=== PATIENT | female | born 1955 | race Caucasian/White ===

== ENCOUNTER 2022-11-25 12:53 | Outpatient (OUT) | payer MEDICARE, SELFPAY ==
--- NOTE | 2022-11-25 13:00 | VEIN_ITS ---
Patient: TERE RADER Exam Date: 11/25/2022 : 1955 Gender:F Ordering : DR. Joe Riley D.P.M. Admission #: [id number] Family : Order #: [id number] CLICK HERE TO VIEW EXAM RADIOLOGY REPORT PROCEDURE: FACILITY [facility] COMPREHENSIVE [facility]IN [facility] - OFFICE VISIT INITIAL COMPARISON: None. PROGRESS NOTES: [age] year old female who presents with a 3 year history of gradual onset leg aching, heaviness, itching, stinging, swelling, muscle cramping. The patient's left leg symptoms are worse than the right. There has been a progression of symptoms since prolonged episode of nonweightbearing following injury. This increases now with increased activity The patient describes an improvement with rest. The patient denies any signs and symptoms to suggest arterial ischemia. The patient describes a family history varicose veins on internal sign. The patient has drinking and smoking history of : Former smoker. Patient has a past medical history significant for hypertension, left foot deformity, cerebrovascular accident, lower left leg and foot fractures, arthritis. The patient denies a history of deep venous thrombus or pulmonary embolus. See separate history and physical for medication list. No prior treatment for varicose or spider veins. No current use of compression stockings. After review of nurse notes, history and physical exam I discussed at length the pathophysiology of venous hypertension and possible treatments, therapies and strategies available. We discussed at length the importance of elevating the lower extremities above the level of the heart, increased physical activity and compression stocking use. Ultrasound venous reflux study performed today was discussed at length with the patient. The report demonstrates no significant superficial vein dilation or reflux. PHYSICAL EXAM: The right leg demonstrates no varicosities, a few spider veins, no ulceration, mild edema, no skin discoloration. The left leg demonstrates no varicosities, a few spider veins, no ulceration, mild edema, no skin discoloration. Both thighs, legs and feet were symmetrically warm to the touch. Good posterior tibial and dorsalis pedis pulses were present bilaterally. IMPRESSION: 1. No significant venous insufficiency 2. No significant lower extremity varicose veins 3. Mild lower extremity subcutaneous edema 4. No flow significant arterial disease 5. CEAP: C3, EN, AN, PN PLAN: 1. Continued use of compression stockings 2. Elevated legs and increased physical activity symptomatic relief 3. No treatment of superficial veins needed at this time. Nurse notes, history and physical were reviewed and confirmed, see attached forms. The nurse was present throughout the physical exam and consultation Dictated by: Ike Elias M.D. on 11/25/2022 at 14:00 Approved by: Ike Elias M.D. on 11/25/2022 at 14:38
--- NOTE | 2022-11-25 14:00 | VEIN_ITS ---
Patient: TERE RADER Exam Date: 11/25/2022 : 1955 Gender:F Ordering : DR. Joe Riley D.P.M. Admission #: [id number] Family : Order #: [id number] CLICK HERE TO VIEW EXAM RADIOLOGY REPORT PROCEDURE: VC EXT VENOUS REFLUX ARACELY LMTD COMPARISON: None. INDICATIONS: Pain and due to varicose veins of bilateral legs I83.813 TECHNIQUE: Duplex imaging of the lower extremity to assess the deep and superficial venous system for the presence of deep or superficial venous incompetence and to document the location and severity of disease. The study includes evaluation of the great saphenous vein (GSV), anterior accessory saphenous vein (AASV) and small saphenous vein (SSV). Patient scanned in reverse Trendelenburg and standing. FINDINGS: RIGHT LOWER EXTREMITY: Saphenofemoral Junction Reflux: Yes 8.7mm 1.1 sec GSV: Diam (mm) Reflux/ Time (sec) Proximal Thigh 4.9 Yes 0.5 Mid Thigh 3.4 No Distal Thigh 3.0 Yes 0.5 Prox Calf 3.0 No Mid Calf 2.1 Yes 0.5 Saphenopopliteal Junction Reflux: 2.2mm No SSV: Proximal Calf 2.0 No Mid Calf 1.7 AASV: Proximal Thigh 3.9 No Mid Thigh 3.8 Yes 0.9 Distal Thigh Thrombi: No acute or chronic thrombus visualized Compressibility: Normal Flow: Normal Preforator: Dist/med calf 2.4mm with 0s reflux. Mid/med calf 3.8mm with 0s reflux. Tech Note: No significant incompetency or varicose veins present. LEFT LOWER EXTREMITY: Saphenofemoral Junction Reflux: No 8.5 mm sec GSV: Diam (mm) Reflux/Time (sec) Proximal Thigh 4.8 Yes 0.8 Mid Thigh 4.8 Yes 0.7 Distal Thigh 3.5 Yes 0.6 Prox Calf 1.8 No Mid Calf 2.5 No Saphenopopliteal Junction Relux: 2.6 mm Yes 0.7 SSV: Proximal Calf 2.2 No Mid Calf 1.8 Yes 0.5 AASV: Proximal Thigh 4.5 Yes 0.4 Mid Thigh 3.6 Yes 0.3 Distal Thigh Thrombi: No acute or chronic thrombus visualized Compressibility: Normal Flow: Normal Personnel Quality Assurance Auditor: Dist/med calf 2.6mm with 0s reflux. Mid/med calf mid/med calf 3.8mm with 0s reflux. Tech Note: No significant incompetency or varicose veins present. CONCLUSION: 1. Minimal reflux within the right anterior accessory saphenous vein, left great saphenous vein, and left small saphenous vein, but no abnormal vessel dilation. 2. No incompetent shafting worker veins. 3. No dilated or incompetent branch saphenous varicosities. Dictated by: Ike Elias M.D. on 11/25/2022 at 13:57 Approved by: Ike Elias M.D. on 11/25/2022 at 13:59
== END 2022-11-25 12:54 ==
LOC: VC 12:55
PROVIDERS: PCP Podiatrist Foot & Ankle Surgery; Visit Provider Podiatrist Foot & Ankle Surgery
DX: I83.813 Varicose veins of bilateral lower extremities with pain (principal)
CPT/HCPCS: 93970; G0463

== ENCOUNTER 2023-08-11 13:39 | Outpatient (OUT) | payer MEDICARE, SELFPAY ==
--- NOTE | 2023-08-11 | XR_ITS ---
The [address] [address] Patient Name: TERE RADER MRN: [id number] date: 1955 Sex: F Assigned Patient Location: [facility] Current Patient Location: Accession/Order Number: [id number] Exam Date: 08/11/2023 13:50 Report Date: 08/12/2023 07:37 At the request of: REEMA CH Procedure: XR ankle LT min 3V PROCEDURE: XR foot LT min 3V, XR ankle LT min 3V HISTORY: LEFT FOOT PAIN COMPARISON: XR ankle left 10/29/2022 FINDINGS: BONES:Prior mechanical fusion of the ankle joint and hindfoot via intramedullary mason and locking screws. Stable lucency along margins of the mason and calcaneal screw secondary to surgical placement versus movement. Prior resection of distal fibula. Cortical irregularity along the mid and distal tibia secondary to prior trauma, surgical changes, and bone healing. Moderate marked degenerative changes of the midfoot. Generalized osteopenia of the foot. SOFT TISSUES:No visible soft tissue swelling. EFFUSION:None visible. OTHER: Negative. XR/XR ankle LT min 3V IMPRESSION: 1. Grossly stable surgical changes chronic degenerative changes. Electronically authenticated by: PATSY ABEL Date: 08/12/2023 07:37
--- NOTE | 2023-08-11 | XR_ITS ---
The [address] [address] Patient Name: TERE RADER MRN: [id number] date: 1955 Sex: F Assigned Patient Location: [facility] Current Patient Location: Accession/Order Number: [id number] Exam Date: 08/11/2023 13:50 Report Date: 08/12/2023 07:37 At the request of: REEMA CH Procedure: XR foot LT min 3V PROCEDURE: XR foot LT min 3V, XR ankle LT min 3V HISTORY: LEFT FOOT PAIN COMPARISON: XR ankle left 10/29/2022 FINDINGS: BONES:Prior mechanical fusion of the ankle joint and hindfoot via intramedullary mason and locking screws. Stable lucency along margins of the mason and calcaneal screw secondary to surgical placement versus movement. Prior resection of distal fibula. Cortical irregularity along the mid and distal tibia secondary to prior trauma, surgical changes, and bone healing. Moderate marked degenerative changes of the midfoot. Generalized osteopenia of the foot. SOFT TISSUES:No visible soft tissue swelling. EFFUSION:None visible. OTHER: Negative. XR/XR foot LT min 3V IMPRESSION: 1. Grossly stable surgical changes chronic degenerative changes. Electronically authenticated by: PATSY ABEL Date: 08/12/2023 07:37
== END 2023-08-11 13:40 | disposition home or self-care (01) ==
PROVIDERS: Visit Provider Podiatrist Foot & Ankle Surgery
DX: M24.575 Contracture, left foot (principal); M21.172 Varus deformity, not elsewhere classified, left ankle; Z98.890 Other specified postprocedural states
CPT/HCPCS: 73610; 73630

== ENCOUNTER 2024-02-09 08:40 | Outpatient (OUT) | payer MEDICARE, SELFPAY ==
--- NOTE | 2024-02-09 | XR_ITS ---
The [address] [address] Patient Name: TERE RADER MRN: [id number] date: 1955 Sex: F Assigned Patient Location: Current Patient Location: Accession/Order Number: [id number] Exam Date: 02/09/2024 09:50 Report Date: 02/10/2024 09:20 At the request of: REEMA CH Procedure: XR ankle LT min 3V PROCEDURE: XR ankle LT min 3V HISTORY: LEFT ANKLE PAIN COMPARISON: None. FINDINGS: BONES:Mechanical fusion of ankle joint and hindfoot via intramedullary mason and locking screws; no appreciable hardware fracture loosening. Remote fracture and healing of distal tibia. Resection of lateral malleolus. Marked degenerative changes of the hindfoot and ankle joint. SOFT TISSUES:No visible soft tissue swelling. EFFUSION:None visible. OTHER: Negative. XR/XR ankle LT min 3V IMPRESSION: 1. Mechanical fusion of ankle joint and hindfoot without evidence of hardware failure. Electronically authenticated by: PATSY ABEL Date: 02/10/2024 09:20
--- OUTSIDE RECORDS SUMMARY | 2024-02-10 10:08 | XMS_ITS | CCD ---
Author Organization [facility] Care Team Providers Care Saw Edge Fuser Circular Name Role Phone REEMA CH Admitting Unavailable REEMA CH Attending Unavailable REEMA CH Attending Unavailable REEMA CH Consulting Unavailable REEMA CH Admitting Unavailable NOHEMY MIXON Consulting Unavailable [place] PROPELLER INSPECTOR-INFORMATION STRATEGIST, Felicia Atkins Attending Anu Zee MD, Ben Parham Attending Unavai lable [place] PROPELLER INSPECTOR-INFORMATION STRATEGIST, Felicia Atkins Attending U navailable [place] PROPELLER INSPECTOR-INFORMATION STRATEGIST, Felicia Atkins Attending Anu Zee MD, Ben Parham Attending Unavai lable [place] PROPELLER INSPECTOR-INFORMATION STRATEGIST, Felicia Atkins Attending Anu Zee MD, Ben Parham Attending Unavai lable [place] PROPELLER INSPECTOR-INFORMATION STRATEGIST, Felicia Atkins Attending U navailable [place] PROPELLER INSPECTOR-INFORMATION STRATEGIST, Felicia Atkins Attending U conorailFelicia Huggins Admitting Unavailable Dale Flores Primary Care Unavailable GreenbraeFelicia pastor Attending Unavailable Dale Flores Primary Care Unavailable Risa Hilton Attending Unavailable Risa Hilton Admitting Unavailable Dale Flores Primary Care Unavailable Dale Flores Admitting Unavailable Dale Flores Attending Unavailable Dale Flores Attending Unavailable Dale Flores Admitting Unavailable Dale Flores Primary Care Unavailable [place]braeFelicia pastor Admitting Unavailable Dale Flores Primary Care Unavailable GreenbraeFelicia pastor Attending Unavailable BEN ZEE Attending Unavailable BEN ZEE Admitting Unavailable Dale Flores Primary Care Unavailable Dale Flores Primary Care Unavailable Dale Flores Attending Unavailable Dale Flores Admitting Unavailable aDle Flores Primary Care Unavailable Dale Flores Attending Unavailable Dale Flores Admitting Unavailable GreenbraeFelicia pastor Admitting Unavailable Dale Flores Primary Care Unavailable [place], Felicia M Attending Unavailable [place], Felicia M Admitting Unavailable Mark, Darwin Primary Care Unavailable [place], Felicia M Attending Unavailable [place], Felicia M Admitting Unavailable Mark, Darwin Primary Care Unavailable [place], Felicia M Attending Unavailable [place], Felicia M Admitting Unavailable Mark, Darwin Primary Care Unavailable [place], Felicia M Attending Unavailable [place], Felicia M Admitting Unavailable Mark, Darwin Primary Care Unavailable [place], Felicia M Attending Unavailable [place], Felicia M Admitting Unavailable Mark, Darwin Primary Care Unavailable [place], Felicia M Attending Unavailable KINDL, BEN F Attending Unavailable KINDL, BEN F Admitting Unavailable Mark, Darwin Primary Care Unavailable KINDL, BEN F Admitting Unavailable Mark, Darwin Primary Care Unavailable KINDL, BEN F Attending Unavailable KINDL, BEN F Attending Unavailable KINDL, BEN F Admitting Unavailable Mark, Darwin Primary Care Unavailable [place], Felicia M Attending Unavailable [place], Felicia M Admitting Unavailable Mark, Darwin Primary Care Unavailable [place], Felicia M Admitting Unavailable Mark, Darwin Primary Care Unavailable [place], Felicia M Attending Unavailable Mark, Darwin Primary Care Unavailable Mark, Darwin Attending Unavailable Mark, Darwin Admitting Unavailable Mark, Darwin Primary Care Unavailable Mark, Darwin Attending Unavailable Mark, Darwin Primary Care Unavailable [place], Felicia M Admitting Unavailable [place], Felicia M Attending Unavailable Mark, Darwin Primary Care Unavailable Mark, Darwin Attending Unavailable Mark, Darwin Primary Care Unavailable Mark, Darwin Attending Unavailable Mark, Darwin Primary Care Unavailable Mark, Darwin Attending Unavailable Mark, Darwin Primary Care Unavailable Mark, Darwin Attending Unavailable Problems Problem Classification Problem Date Documented Da te Episodic/Chronic Other non-traumatic joint disorders (4 sources) Pain in left ankle and joints of left foot; Translations: [PAIN IN LEFT ANKLE] Onset: 10-29-2022 Episodic Results Test Name Value Interpretation Reference Range Facility Inpatient Patient Summaryon 02-03-2024 Inpatient Patient Summary [address] [address] Patient Discharge Instructions Name: TERE RADER : 1955 Patient Address: [address] [facility] [address] Primary Care Provider: Name: Dale Flores MD After you are discharged if you find you have any questions, please, call [phone] ext [phone] to speak to a nurse. Discharge Diagnosis: Prescription Information: If you have been given a prescription for narcotics, seek immediate medical attention if you have any difficulty breathing or any sudden status changes such as confusion and sleepiness. If you or anyone you know is experiencing suicidal thoughts, mental health, alcohol and/or drug addiction problems; contact the [facility] 12/01 Crisis Hotline -Text 4HOPE to [phone]. If you received any narcotics, sedation, or any other medication that causes drowsiness for the next 24 hours, unless otherwise directed: ? Do not drive a car. ? Do not operate machinery such as power tools, lawn mowers, drills, sewing machines, or stoves ? Avoid alcoholic beverages and drugs for allergies, nerves, or sleep ? Do not make important personal or business decisions or sign any legal documents [facility] would like to thank you for allowing us to assist you with your healthcare needs. The following includes patient education materials and information regarding your injury/illness. TERE RADER has been given the following list of follow-up instructions, prescriptions, and patient education materials: Follow-up Instructions Medications During the course of your visit, your medication list was updated with the most current information. The details of those changes are reflected below: Medications to Continue That Have Not Changed Other Medications acetaminophen (acetaminophen 650 mg oral tablet, extended release) 1 tab(s) Oral (given by mouth) every day as needed Pain - Moderate. buPROPion (buPROPion 150 mg/12 hours (SR) oral tablet, extended release) 1 tab(s) Oral (given by mouth) 2 times per day. Refills: 3. camphor/menthol/methy l salicylate topical (Salonpas (camphor) topical film) diclofenac topical (Voltaren Gel 1%) docusate (docusate sodium 100 mg oral capsule) 1 cap(s) Oral (given by mouth) 2 times per day as needed if needed for constipation. Refills: 5. ibuprofen (ibuprofen 800 mg oral tablet) 1 tab(s) Oral (given by mouth) every 8 hours. for 30 Days. Refills: 1. losartan (losartan 50 mg oral tablet) take 1 tablet by mouth once daily. Refills: 0. menthol topical (Biofreeze) mirabegron (Myrbetriq 50 mg oral tablet, extended release) 1 tab(s) Oral (given by mouth) every day. pravastatin (pravastatin 40 mg oral tablet) take 1 tablet by mouth at bedtime. Refills: 3. Template Non-Formulary (Golo with meals) 1 tab(s) Oral (given by mouth) 3 times per day. traMADol (traMADol 50 mg oral tablet) 1 tab(s) Oral (given by mouth) every 4 hours. as needed as needed for pain. Refills: 0. venlafaxine (venlafaxine 150 mg oral capsule, extended release) 1 cap(s) Oral (given by mouth) 2 times per day. Refills: 3. It is important to always keep an active list of medications available so that you can share with other providers and manage your medications appropriately. As an additional courtesy, we are also providing you with your final active medications list that you can keep with you. acetaminophen (acetaminophen 650 mg oral tablet, extended release) 1 tab(s) Oral (given by mouth) every day as needed Pain - Moderate. buPROPion (buPROPion 150 mg/12 hours (SR) oral tablet, extended release) 1 tab(s) Oral (given by mouth) 2 times per day. Refills: 3. camphor/menthol/methy l salicylate topical (Salonpas (camphor) topical film) diclofenac topical (Voltaren Gel 1%) docusate (docusate sodium 100 mg oral capsule) 1 cap(s) Oral (given by mouth) 2 times per day as needed if needed for constipation. Refills: 5. ibuprofen (ibuprofen 800 mg oral tablet) 1 tab(s) Oral (given by mouth) every 8 hours. for 30 Days. Refills: 1. losartan (losartan 50 mg oral tablet) take 1 tablet by mouth once daily. Refills: 0. menthol topical (Biofreeze) mirabegron (Myrbetriq 50 mg oral tablet, extended release) 1 tab(s) Oral (given by mouth) every day. pravastatin (pravastatin 40 mg oral tablet) take 1 tablet by mouth at bedtime. Refills: 3. Template Non-Formulary (Golo with meals) 1 tab(s) Oral (given by mouth) 3 times per day. traMADol (traMADol 50 mg oral tablet) 1 tab(s) Oral (given by mouth) every 4 hours. as needed as needed for pain. Refills: 0., OARRS reviewed on 10/03/2022 venlafaxine (venlafaxine 150 mg oral capsule, extended release) 1 cap(s) Oral (given by mouth) 2 times per day. Refills: 3. Take only the medications listed above. Contact your doctor prior to taking any medications not on this list. Diet & Activity Patient (more content not included)... [facility] 02-03-2024 Patient Handout [facility] Coding Summaryon 02-01-2024 Coding Summary HTMLBase 64 VfduomkqDZt1tOz+PGhlY WQ+TR4GWIHsH15ykQOfwY 1wZ5DJDFxLJkckZIGYXYr AKmKviwPzRS3rlMQdBETm IC8+MT3mDBIkLeveoXYsi 9T3dOR6R60sql2gAZgnjK N6PKCzRwHjfefce7vhbTl 6IDcuNmluOyBt UNMooC24RDA9zV75Hp86u BDkbBKwn1vtbPe4ArGaMS LjVUQ1pBxkIOvav7IiQDR iF64osDZws8R1 GEYdkXxxgKPiTgFxiUU4m Q3vSEacgqvhi7lrtludYg v7py84iWZox9W3hUE6O6Q helC9FIVfiJDr QushlCUEbB9tljapx9rwc ktvVwRnEITlYDg4LYk3HE ZkwJhgCvLtQY40JOD4SNG cekEuY2MxALYx iFrsImZ7k2Z6Sa0WC7PAQ ijxS9VTSQTKHJaevKX+PC 27kf14T7AiFkrfHcf5CRH iTHV1bBC0gY9r WOEsDZbxq0S1iNM4S2Sxi eThjn4mr8vsXMJxPWgpZ8 6noPPfk3F0TMNlgMI2ZNU xxXbiDmQajO22 Oyc+CLYilDjmf8QeGiwxb 2jgb9wljOo1VxtfHVEarx CaqNucMGG3r0AnJq4sRYK dkVB9tVD2aZ4s ZpMgSzB9HHczH835HmZcg ZQoFiciJ13vR9OkkAG+PH JnAks6KBOfhZfjDQ2jB1C hZGRpbmctbGVm lHoyLI8bQPKqshmcQCOsm G4eXJViU8i2VgWlVaU4BH hvX2SmBQXjlndoNs36jP8 iUxBcPeZ8KZmq L4UqrjW8HVZmhMAmJVeeK SK4Q32yf6J3OBUhRJBhYX B4oNW5vT8syTkurtyslOE mdDsgdmVydGlj TCbrBWwzE451STUvlDshX kNvZGluZyBEYXRlOiAgMD gvMTIvMjAyNDwvdGQ+PHR uQPE6wHsbEZCm lGEyCVwvZm0hcQadqKniL N5wXLQuwtauSUPtzV4nPP OnqAAlqEueTE2sKFJgfps eh420DiVrACJ0 ODKbvELdO6MmqX5uEkLcM PTbFWXvC8QsqUQaZHqrE9 40BCvpNpC5TTAigkFwW6J sLWFsaWduOiB0 f2A4Hq4Rr7ZbrznsS4Sjt LZlDrDxGuxnECh6O9PiFa wvdHI+PE11MGYsBI27OWt 2ESU0bAynAJoc MAGuQ5TtmL0yAlDtFEPlA GRkOyc+PHRhYmxlIHdpZH RoPScxMDAlJyBzdHlsZT0 zGo8fFQWfJZNa tHdaeQPnQpPue8ccXCOqK IlmUB4anKerD4AddAD9MZ Dlz2h6Lg63Z80wG0YjsTQ +ZJGsaNY8hWC6 zS5uXzSbIoW2OIwhL802P tMiwNUwCsoai7iyz1mlrO a9ZwW9TLClohOkaOdjCHU 7f2ScTz47Z99w IHdpZHRoPSIxNSUiIHZhb Qjuxz0zoH6jLt0+PGNvbC S4eSF0mP8rSaPtCdG1UMk uN773BcTacPYp Grllg4bqt8aywWz8PuWiS RXmtwQsrDicLTZ1o6KxUj 88E7LejCjrj0DcHto2qq9 5kMLxe9M2aTE9 G3VyMBJxcbpknFXhbGsaA M2yUGEvtzqfJIIugQ9mUG KbZ9g3BhXcOoB6IRopL3A inyM3DYPvgABx QUAkjQEBvJ2cupsck2ift wkjWxZjBLOuMKc5VJl7DZ AmpDpzUgVqOIB8RmE2SPP 2dUHptP8hzLun tffhvE2wIfp+FQB1qKLye XOIQW0zBlfjzLE+PHRkIH S2tVflWZutTRLugB3oNNB gS7m3NdIgFmX3 PGrvB5MsezI8MQAtvNPjJ BGveEYJkD6arptst1kbeh cvWkItTPAwOYp4VCr4ELD saWduOiBsZWZ0 OvZ4NVV2gLJnpK9ocQgeo wgywS0lRwp+QmlydGggRG R5IWn7T7DoFem8KEMlzZy lIG1kuVYnVZjz Nz1avSkcpQohBA5uNXCct ouwa745PjNbt8xrYZOuoO AuUKfxZXB2X07pw8W8RGW xNYFfDLQ4aXD7 eN6toKnvpuwzjEJuvXntq vQipGrjWKaiQRfsS853GC GzhHcfUyZtVSp7X1EhVan 1MJFjjGxnIB9d pCLwVMlvEs0qhZjccJwuP E6nOKFljzzgo930MfZly6 hnDOSfeZPqIHtmCPZ0Z41 cc8A6UARrFAAj RQX2hGI6kE5ubIfbeujjh GVmdDsgdmVydGljYWwtYW qgX226YVRrgHubVtYhiEp 9A5VrGka2AQKz pZpvAG6voBDhIUylAs4ny NkcmOzuGS9gTPObjvnwh2 10ChWai0sqQEJczYYxEOc eDQB9Y64bx9N2 QKCwOGHqCPT4rLE5uV0yh GlnbjogbGVmdDsgdmVydG mqHQukECwrW500NLPiuUm nPlBhdGllbnQg QJrzBTp2T2BtHqskjDQ+P R50FSXbTU62hRJjdHMya3 vogBf3RqYfFGCzIIU4gSa dNIkgh9JwBFYl O53djYBzy6C6PJHvrLykx XElKvWyhTS3bJ0nQMfkbd hhb0iabveeCwsqj7hhei6 6zP27X72lWUwa ZHRoPSIzMCUiIHZhbGlnb u9icY3wSc7+VLHujAW7iW T4vG7kZOJsYxA3GAamG33 9InRvcCIvPjxj m4grg2lgeDk0ZvW5FOJsr oFzyQdcMNY1u7RnBb25W0 9sIHdpZHRoPSIyMCUiIHZ vgUvgin6ogA3e Ii8+ASQuwCU8bDF2iA7hH wXyQrH3SKchW678TgPebV EoPnmnN89zL3TvqVQ+PHR rOwg4AHInfNtz FN5thEGaIJbdXk2rQFY7J eYmIwMoBLjfW0BgYZKspp hkqmdhfPH7IKLgDZPlbH9 0Be8giCtmUHSt gUDKrR4uqnmjq3bneqydA wOzJCTmAMf8ADw3FQYiqP fgKqMfRUS7CsQ3OVV2uQB vuR0bsBazzlrp rF0sE0IbRZFcjgufWt87h P8cAwEhYcQ6MWonUxs+V0 8VXaFfYKdXPYvCGI3oSNw VGmXLAMEHPE46 RT38zCGyh0V6bDC2H3EiI OEdgjndwbjbfKC7AVZpVF TxqF84fKVoKVnpHh1dq2J 4a225GXMzFLFc jW12Vm0zbLocBPBwpOZEa V5jncycu1nwxdfzDqJwVT HzNHt8JRv1TYBcdLfiBwP ePLU2HeO3KOX0 nKBubA7bbYvjhtredH5bV yc+EMSmPOUdBZv6GWqauM Q+UMBbGDK6rEjnSDgmWMK umN4pUHZeP0l4 EgGaUiX2WUfkF9IzPNIpg qspVv39bV8gFzWeMuG2ZG dsM3ZlniB7RLYuwLVqWPh hKNO2C01cq5F0 IGJrLIUxBAE0gJL8dG3lj GlnbjogbGVmdDsgdmVydG moHAipZNgrG601ECHswBu tErP4UAniQHGe CF57YK91mAAoy5D8fTM3Z 6FlZQIsirkfpptifCE1JN YcFOOsnA05wIKcZLykQx5 hf3T8i405SFPm RBUqhU55Yj2wzFsnHEBwp AQVnT3ueuvyy1rxyawmDo BiRRHaVWr1DNa6HWPhkUc zFxIcDTD7UdR6 XWY7mJSboH8dvGwmawgeq G9wOyc+BtOZLRzYMG29KQ 66jNRmt8P8kUA0U5HrAZS pbmctcmlnaHQ6 YUMeUULuiS11qUVnJSvxA t2xq0Y4s599HZPzUBUdvL 24Be0isAghPJBeyIREhC6 lhwpja2oupwwr AtYpSVUoKGn8AOf9TZDmj KgwAvZfDKD6LzO9ZNY2kW WsvQ1swQnvauftwH7eGwr +G3M3S7PwOkon dHI+IE98THMaXV05cNIcf SAzo0dmaKl9CnVfAHRzTX O8fQsySQosa6OeWBSiL69 vfJMmd0T7VYGe kGhkcVDyIsEqyRC6eM7hK Nvwotfje6ownozoTnrao3 zjgp81qP20X19uOHsrKZE oPSIzMCUiIHZh yUcmqk8wbG2bYp8+PGNvb BL5sBJ5vH1uKwPoEcJ0VR cyD019XbCjtOUrLioxf8z hk1ruqHm8SjJt YOUndoLhvRseXGI3l9PdY j76Z65pUZbePKTuGANaJG ThLGPmxNjibq4vaI1eXc9 +UG0pb9qpgm39 oW45hZT+AGRmBYX1wIahK BxlHBEgtY1vYGukJhQ7XG IdLrCsvP14qDYlUUyvKq2 eqMdnjMhsCH0j AIRpcnldy637HzUzk2daJ RGnxPAuZJruLUG7E00yh0 P7GRYnIJTeVFS9mUK1tY3 hbGlnbjogbGVm dDsgdmVydGljYWwtYWxpZ 001GQOdjNwiNfQswWOpJ6 xywwZXER4gJgrlyLH+PHR nBQC5cMtyYRis HNBskM8aHWKaZ9d1QhOqR dX0ZGtlO3TqkdA4HGMgzI KtSKPqhPGSxU3oqavra2i vcjogIzAwMDAw IEg3LEl8SYEpvXgfZmNaA LC9HgA5ILP5dOWizJ2ufK dwfcgqsR4sDoy+RklOOjw vdGQ+PHRkIHN0 eGkbFJgaZSMkpY8fYQTqH 6l5ZtZxJfV3YRgvM8Jysg X7ZRNwrFNfVIAjfDINoI6 pspgxr8fxbord PgMiMPHvDJv2GWw7SVOjh OlhGvSoUEZ6UeO5BQG0wN NwlK4ueJqryfyyyM2fArl +TVJOOjwvdGQ+ LDFyOIL2bZytGTnqRCSqv V0lYJUhC4n8IfHsIjC5YZ jrF7YhxcY4GMPrgEUrSCL hbUMGvW8fceal r4dgnvyaWrUsKXIvBLs5I Qi0HRGarXqqKqHeBBV6Ow D7ICY1hINlnV8yjQgeefe oeG7gBky+UGF5 SCK1YB58ON53O2FlSixnp GFibGU+PHRhYmxlIHdpZH RoPScxMDAlJyBzdHlsZT0 dNa1nSWBpKRCg bGx (more content not included)... [facility] Coding Summaryon 01-18-2024 Coding Summary HTMLBase 64 JibruokwQGq7uAc+PGhlY WQ+VH3QJSOwZ91vfRCekJ 0zB6KZDMcNCvkpIWBPYWm SYzSmrdVfVC0dbJSyADFj IC8+NE8eENJdLprnxQLkz 5A9aEL8T26yrs4lDDzmqX E1LUHwQvIeltowe5aaeBk 6IDcuNmluOyBt FQHhdI04JDW0vH56Yp92o GOmpMOyf4sxbHh9YkMzDT JxYVS8uItuIWiid6GsVXF qC94mfEXpl0P6 OABwtMqhxBGdGrTkjNF8k F3fYAyjwtdzr3ywnjmfNh w0in45wDVny3D0aJS5P5G jxnT2TBAjpMFf AbupnOSDvY0ogjstx9bfy qntByCwMLNvUDp1DYo9UT YofIuyRbViDI82FUZ6IKS lbuFmH7GjMUQm lPwxItH3g2S1Gl8DN1YOT jzwE1XMNYIEUXjbsRT+PC 24pz01B8TfUdlnSzx5VPK xXJT8aGL2iM3c KYHiNKaji1U5tVX6A9Esw lCbcs7yr3htHQXdKWbjF6 3wxMNra1V1ICVqcDQ8BWI xnIdmHpNgsJ88 Oyc+QLAssQmjo1KlFcocs 6cll0qigAe5UrwxUJKfpy OikMhsJSR2m9SkBt8hZAA deSF1gEA0qA0k IbJsCuF6GIxhS422SvIdg HXgQwkzC95nL8AxvHG+PH DgSps8YFJmtDquJM1zW8E hZGRpbmctbGVm nDotOA4cVOBvpyhbNLGpy R6eICHlZ7i7KuGaPoZ5YR hnK6GsFCHlefzmCa80sL5 rUxJdJcR3UZse B8IudwY7SJEwdHHwWFgoP LZ5Z85er8O0QIKiLLSkDV R9lZB1kR2scJkjbymtuPD mdDsgdmVydGlj DBcuXYadE697CASctLalL kNvZGluZyBEYXRlOiAgMD cvMjkvMjAyNDwvdGQ+PHR kTWQ8wHgsYVDx aRXzIFjxEm2tnWxihFwiD E7qBZXkvsbnYXMznP1uEI OhxXIqrMcdZN3jPRBzpxl hk959DtVpXFO1 ZYOyrYZaN8VvjG1wSdOlP FGkTQBiZ4FysIAjSDakF4 99OWxqSyM9TBMuxcVvF4L sLWFsaWduOiB0 y6L9Yt8Ws8MpijaxS6Ugb HBxQvWgMntiVBd8K0RbPb wvdHI+NJ03UWKkMA92XMd 1KYP1zNujDIwm TOAvF0RzcI9bMvIuRINtI GRkOyc+PHRhYmxlIHdpZH RoPScxMDAlJyBzdHlsZT0 xJi5lQIJtKACi mVfwdRSsNnPwu4aaUGCbY JteCG7vbYllX5NnwUX1YP Cta1s4Rh23O20jK1FcnMR +HCThjJX1yJY8 bM3lJfPuNuM5VBywJ655C uEbeDByNbgcs7hdt8vrtF r3PxM0WITczrQwiWihYPI 9k9JwFh38W91a IHdpZHRoPSIxNSUiIHZhb Mpzlk8diG2zOq6+PGNvbC R6mNI4lN3dSuToXuM3ZTt eA363XfKhlENd Zzczf9yen2hjbBx8SbKwS XOflnZqcJtgLJO7l2JiSt 83W8KjkFaed3YhVnw7gr0 2qVVqp7B0zKJ7 I6GnHBIvjvwrpINiiOvcT V2vKPTczvvfEHAymQ1iNJ NaT7s3GhArSkY8QIwuX8M cadI8HFLrmGCl AEHyrNDXzR1cswxkw7olr gsgLlQpXEGbDQm9XVi0FJ CcqHvpReBkAQJ5XcE6LMV 7tFNjyC7teYsh jjadzC9aWsg+VVW9eYVrh LMSFH0cKfnrdQK+PHRkIH Y3oVfrKKjiPDRkbN6fZLM gZ8b8HdIdIhT9 KFabV0GtbnE6JZPeqBLaP IXxuPBCpZ3xgvtgk3hkso srGlYjXOAsWAb6VMl5SVX saWduOiBsZWZ0 ZoQ8MMQ7vHHkoS1qeKfqo fdemR0aQfx+QmlydGggRG G8JJz8F7RrIhd9LXMkfEd hFG9qyTLrMFty Sj5ooAkinNxlZV3eYIMge cqwj309WsUut9mlZWIwvE HdZBwyECU3Q57dj9C1TSM eQGQzRLG5sXH8 dZ8vgRzlryirvMBpjHcpt dJkbQqsWXnvGMnrI683WS IvlJjbRcHhWHg0I4LlMed 6BERvyMcrIQ6q lXZlCTvmHc8wdNkawDucJ P5iDXCybgmnh374CiFtc0 leKGJmaGEmRKcgFIN0A28 ph9H4IYWgAVFu HUB5qYS2vF6sxStapmyvl GVmdDsgdmVydGljYWwtYW fkR066AQKqsMkiTfUqbWx 0V6YsRyh7LUNe gOtaYD9edNRlCRyhMp7ru WtwqDktEP2uXMXdlbkxv5 69LuExr8nzQPNaxZLmQRw tEPM3R63un3T5 RTHeSRNfFBJ5sNR0sZ8uq GlnbjogbGVmdDsgdmVydG tuJYtbBTadW259JLAtfWr nPlBhdGllbnQg HRkvDOu2T7UoKlsvuLO+P V38FROgZL31kDDchBQea6 gyoNy0XkRfWACuXFJ4nIu yQZrkc3RsTBVr X59dxWAxu4Y4IRShoIgmc TFcPsAvpZH7zM9lYEksmd yjy7rzimiwDrfmv9rmwo1 1rP19T99fLIdr ZHRoPSIzMCUiIHZhbGlnb u8agA7kNw0+EJZzgVU3zW O2jK4tIJFyYdV1NRwrY56 9InRvcCIvPjxj j0qxn4tpjLp9AzQ0BJZyv uJglJacNUR0a0CqQy74B5 9sIHdpZHRoPSIyMCUiIHZ enMxvfj3bjS5c Ii8+YVXimSF4dAC6cY9vP tDjMeD9SZqyP173NmVlhI TuWavsF54gX1GorQS+PHR uRte2GGVvfTfq OF0gyUApMJqhQj2vBUB6E nCmJuQzAAwsT6QjMKSfaw hmffiwmFH2MEYkBUKdgS9 3Ai0gnXlzIMJw dTJRyD9gzuqaq6snewzvU uBaRLZvVVi1IYe4ZWGqhT wiFwWyISL7UfP0MBA2wFR edA5skOktziej eE9wW1TjNMKfafwkHp59o H9bMaEdXhW9WFkvIzs+V0 5QQdAgOQkWDLlNTP5fWAt JDfMLYMJGXU24 TA89cCLev2Q1iQT8Y0LzH OLnbjzkdnewnIK7COCkHD GevQ24sLKnEKuwIr9tm3O 9z645TXIhYYEp gL11Rb6jzEumOHNxbIQZb W9ykikcf6pabtccZlKkNS EmHIj3ISo5JJBtvIycGtH oTWQ0IxB9KQE5 jRSptW7sqMcxvankxW4wJ yc+LPAcDUNgJFp8SVhktR Q+JHXaDVN8kWagHBqiVYB piZ6wIKCgX6s4 VoHjQsV4HNfpS5VtUDXsr emfCs14aR2hXjYpNbU9OW dqM6RrksN2DJDslRTqPCm xCDZ6C70bi5L6 GZLdXWPySUI8bLD0wA3nu GlnbjogbGVmdDsgdmVydG vfQVjzWLxfV858LPRvqPp hJuZ2XWmsNYZf MH38PQ03gFCky0Q0yTN1F 8TpJBWuofclrrkytZV5IH VyKBPsxO67dUIhZXqaAg5 lu3T9o611FDUg BNLgpO10St1kyVrdAQHfn MTOoL3rjxstb1qysfwaZf ExWXDwZWk4VWz8UVPawHw iWpSoJMB1IdW2 WAQ4lMSbfU0xvBvptxneg G9wOyc+QbDMMKrBNK02QA 78lQTgb2Z7hVU6O6AfDTI pbmctcmlnaHQ6 UVWgAGHloA06sOPyBYdfD o4wx6H7q524GVAwVCXcdA 06Ks2mqIevSOTnuBGVtX0 wdhhkk9fgbtar CtGvRJXhAWa4FXu6FQRbu VogAdLyUTS9KwP4FZV2pD TtaR1tsTpsbptjhL7eNtg +S3L8C1EkZwnp dHI+KE69GAVgKK68tESzn PBds2tqrSc2HeYrYVLoSP T7uJygQKxmh7QhDBZpO31 bsMVwp3S4LLDh uHhddSQbXiNpgNE4eX7fA Getjjyxu6kdwyndEbsaa0 pcfa41rQ85Q29uVYdyFEI oPSIzMCUiIHZh lJgkyv5wwO8nXi1+PGNvb AQ9gTE5zA4mIfFqYeF8QT wsN848FmEyvDSfBkpgu7m bx2akiYe7HpYo BBAxgsZgfHxkPOH4f4IxC a11Z93mFVzpMRNnDZWxFF EgKWZafYcydz4dnS6aMg2 +BF8zl0moao74 lM77qFO+ZUJxDGY3pYlgM HeaASJxtB6tUIbfLvW1OS BgTfIloC74sBCfPFvaPm9 qfAtauOocMN7n JOWeyawxm009EwUaz4puJ BWffYToIQlgAYC9R20hp8 X5MXBtYLQjSQD4lBM4bW0 hbGlnbjogbGVm dDsgdmVydGljYWwtYWxpZ 049CAWutEgmAgNhtWKjJ4 ebjxPVMC1cVdzmjJK+PHR fCHP5bWufHArf OTHmnA2cRGQrU1m5RlQwB fY5QTlaS3HgzpA7QKVzkT WaCMZptKYPbF9hjsrbx6j vcjogIzAwMDAw BHm5VSs5FZFidGrqXqZkC SM6JgS1KAM2cWEhrA3opA geczydmY6dVce+RklOOjw vdGQ+PHRkIHN0 vFrqVZjnKMKswQ4uXKSnU 9k7BxNoRiZ5SHvcD7Xocr K7GNYlxEKrMHMlhSGLaN6 pbllut8ytbdap ZsPjRFYsMEc7DLp9QEJom MjySsRfCSR9JiG6SVK5pS BmeJ0idQddwqfraK1yPqv +TVJOOjwvdGQ+ YTFxUTD6iGchZQrpWAJai V2kJIPfZ7v8DtReGvJ5HD xnE7BrawJ9AFLwkUGoGFO deOGNeG0nkvgq v1etcazsZaGmYTAvFDc0X Bj5VFPajTqsMmNpTRE8Uj S9ASG1vLVolV9dhKrbtvn fpM2cKwe+UGF5 PTK0QQ86MK89W4LsFogwp GFibGU+PHRhYmxlIHdpZH RoPScxMDAlJyBzdHlsZT0 nAs5wPCYhLPOu bGx (more content not included)... Normal [facility] 01-15-2024 eGFR Non AA 59 mL/min/1.73m2 Invalid Interpretation Code [facility] Comment on above: Performed By: #### 1 [id number], [id number] ####[facility] (DEFAULT)[address] [place] [address] eGFR AA >60 Invalid Interpretation Code [facility] Comment on above: Performed By: #### 1 [id number], [id number] ####[facility] (DEFAULT)[address] [place] [address] 43231 Albumin [Mass/Vol] 3.7 g/dL Normal 3.5-5.0 [facility] Comment on above: Performed By: #### 1 [id number], [id number] ####[facility] (DEFAULT)[address] [place] [address] 78034 Alk Phos 74 IU/L Normal 32-91 [facility] Comment on above: Performed By: #### 1 [id number], [id number] ####[facility] (DEFAULT)[address] [place] [address] 65633 ALT [Catalytic activity/Vol] 32.0 U/L Normal 14.0-54.0 [facility] Comment on above: Performed By: #### 1 [id number], [id number] ####[facility] (DEFAULT)[address] [place] [address] 60410 AST [Catalytic activity/Vol] 28 U/L Normal 15-41 [facility] Comment on above: Performed By: #### 1 [id number], [id number] ####[facility] (DEFAULT)[address] [place] [address] 83988 Bili Total 0.6 mg/dL Normal 0.3-1.2 [facility] Comment on above: Performed By: #### 1 [id number], [id number] ####[facility] (DEFAULT)[address] [place] [address] 88521 Calcium [Mass/Vol] 8.4 mg/dL Low 8.9-10.3 [facility] Comment on above: Performed By: #### 1 [id number], [id number] ####[facility] (DEFAULT)[address] [place] [address] 99061 Chloride [Moles/Vol] 110 mmol/L Normal 101-111 [facility] Comment on above: Performed By: #### 1 [id number], [id number] ####[facility] (DEFAULT)[address] [place] [address] 91107 CO2 [Moles/Vol] 26 mmol/L Normal 21-32 [facility] Comment on above: Performed By: #### 1 [id number], [id number] ####[facility] (DEFAULT)[address] [place] [address] 93512 Creatinine [Mass/Vol] 0.94 mg/dL Normal 0.60-1.30 [facility] Comment on above: Performed By: #### 1 [id number], [id number] ####[facility] (DEFAULT)[address] [place] [address] 49189 Glucose [Mass/Vol] 101.0 mg/dL Normal 74.0-118.0 [facility] Comment on above: Performed By: #### 1 [id number], [id number] ####[facility] (DEFAULT)[address] [place] [address] 36972 Potassium [Moles/Vol] 4.0 mmol/L Normal 3.6-5.1 [facility] Comment on above: Performed By: #### 1 [id number], [id number] ####[facility] (DEFAULT)[address] [place] [address] 52577 Protein [Mass/Vol] 6.6 g/dL Normal 6.5-8.1 [facility] Comment on above: Performed By: #### 1 [id number], [id number] ####[facility] (DEFAULT)[address] [place] [address] 47761 Sodium [Moles/Vol] 138.0 mmol/L Normal 136.0-144.0 [facility] Comment on above: Performed By: #### 1 [id number], [id number] ####[facility] (DEFAULT)[address] [place] [address] 27379 Urea nitrogen [Mass/Vol] 21 mg/dL Normal 8-26 [facility] Comment on above: Performed By: #### 1 [id number], [id number] ####[facility] (DEFAULT)[address] [place] [address] 65390 Albumin/Globulin [Mass ratio] 1.2 {ratio} Low 1.4-2.6 [facility] Comment on above: Performed By: #### 1 [id number], [id number] ####[facility] (DEFAULT)[address] [place] [address] 91391 Anion gap [Moles/Vol] 6.0 mmol/L Normal 5.0-19.0 [facility] Comment on above: Performed By: #### 1 [id number], [id number] ####[facility] (DEFAULT)[address] [place] [address] 92232 Globulin (S) [Mass/Vol] 2.9 g/dL Normal 1.5-4.3 [facility] Comment on above: Performed By: #### 1 [id number], [id number] ####[facility] (DEFAULT)[address] [place] [address] 26043 Osmolality 279 mOsm/L Invalid Interpretation Code [facility] Comment on above: Performed By: #### 1 [id number], [id number] ####[facility] (DEFAULT)[address] [place] [address] 75269 Urea nitrogen/Creatinine [Mass ratio] 22.3 mg/mg High 4.6-16.2 [facility] Comment on above: Performed By: #### 1 [id number], [id number] ####[facility] (DEFAULT)[address] [place] [address] 60365 Lipid Panel [facility] 01-14 Cholesterol [Mass/Vol] 157.0 mg/dL Normal 66.0-200.0 [facility] Comment on above: Performed By: #### 1 [id number], [id number] ####[facility] (DEFAULT)[address] [place] [id number] Cholesterol in HDL [Mass/Vol] 54 mg/dL Normal 40-71 [facility] Comment on above: Performed By: #### 1 [id number], [id number] ####[facility] (DEFAULT)[address] [place] [address]174 Triglyceride [Mass/Vol] 142.0 mg/dL Normal 0.0-150.0 [facility] Comment on above: Performed By: #### 1 [id number], [id number] ####[facility] (DEFAULT)[address] [place] [address] 38207 Cholesterol in LDL [Mass/Vol] 75 mg/dL Normal 1-100 [facility] Comment on above: Performed By: #### 1 [id number], [id number] ####[facility] (DEFAULT)[address] [place] [address] 27532 Cholesterol.total/C holesterol in HDL [Mass ratio] 2.9 {ratio} Normal 0.0-4.5 [facility] Comment on above: Performed By: #### 1 [id number], [id number] ####[facility] (DEFAULT)[address] [place] [address] VLDL. 28 mg/dL Normal 5-40 [facility] Comment on above: Performed By: #### 1 [id number], [id number] ####[facility] (DEFAULT)[address] [place] [address] Office/Clinic Noteon 024 Office/Clinic Note Patient: TERE RADER Age: 68 years Sex: FEMALE : 1955 Associated Diagnoses: Lumbar spondylosis; Hypertension; Hyperlipidemia Author: Dale Flores MD A History of Present Illness 68-year-old female with history of hemorrhagic CVA causing left-sided weakness. She has been seeing physical therapy and it is helping with her strengthening. She does ambulate occasionally with a wheeled walker and assistance of her . She is also been seeing pain management for chronic low back and joint issues. They have done some injections. Reviewing her chart she is due for blood work checking kidney function liver function and cholesterol. Also managing her high blood pressure and high cholesterol. She does not require any refills medication. Overall has been doing better over the last few months. Review of Systems Constitutional: Negative. Respiratory: Negative. Cardiovascular: Negative. Musculoskeletal: Negative except as documented in history of present illness. Health Status Allergies: Allergic Reactions (Selected) No known allergies, Allergies (1) Active Severity Reaction No known allergies None Documented Current medications: (Selected) Prescriptions Prescribed buPROPion 150 mg/12 hours (SR) oral tablet, extended release: 150 mg = 1 tab(s), Oral, BID, 180 tab(s), 3 Refill(s) docusate sodium 100 mg oral capsule: 1 cap(s), PO, BID, PRN: if needed for constipation, 60 cap(s), 5 Refill(s) ibuprofen 800 mg oral tablet: 800 mg = 1 tab(s), PO, q8hr, for 30 day(s), 90 tab(s), 1 Refill(s) losartan 50 mg oral tablet: See Instructions, take 1 tablet by mouth once daily, 180 tab(s), 0 Refill(s) pravastatin 40 mg oral tablet: See Instructions, take 1 tablet by mouth at bedtime, 90 tab(s), 3 Refill(s) traMADol 50 mg oral tablet: 50 mg = 1 tab(s), PO, q4hr, PRN: as needed for pain, 60 tab(s), 0 Refill(s) venlafaxine 150 mg oral capsule, extended release: 1 cap(s), PO, BID, 180 cap(s), 3 Refill(s) Documented Medications Documented Biofreeze: 0 Refill(s) Golo with meals: 1 tab(s), Oral, TID, 0 Refill(s) Myrbetriq 50 mg oral tablet, extended release: 50 mg = 1 tab(s), Oral, Daily, 0 Refill(s) Salonpas (camphor) topical film: 0 Refill(s) Voltaren Gel 1%: 0 Refill(s) acetaminophen 650 mg oral tablet, extended release: 650 mg = 1 tab(s), PO, Daily, PRN: Pain - Moderate, 0 Refill(s), Home Medications (13) Active acetaminophen 650 mg oral tablet, extended release 650 mg = 1 tab(s), PRN, PO, Daily Biofreeze buPROPion 150 mg/12 hours (SR) oral tablet, extended release 150 mg = 1 tab(s), Oral, BID docusate sodium 100 mg oral capsule 1 cap(s), PRN, PO, BID Golo with meals 1 tab(s), Oral, TID ibuprofen 800 mg oral tablet 800 mg = 1 tab(s), PO, q8hr losartan 50 mg oral tablet See Instructions Myrbetriq 50 mg oral tablet, extended release 50 mg = 1 tab(s), Oral, Daily pravastatin 40 mg oral tablet See Instructions Salonpas (camphor) topical film traMADol 50 mg oral tablet 50 mg = 1 tab(s), PRN, PO, q4hr venlafaxine 150 mg oral capsule, extended release 1 cap(s), PO, BID Voltaren Gel 1% Problem list (past medical history): Active Problems (16) Chronic low back pain Depression Hemiplegia following cerebrovascular accident Hemorrhagic cerebrovascular accident (CVA) History of stroke with residual deficit Hyperlipidemia Hypertension Lumbar degenerative disc disease Lumbar spondylosis Muscle atrophy Muscular deconditioning Obesity Somatic dysfunction of lower extremities Somatic dysfunction of lumbar region Somatic dysfunction of pelvic region Spasm of lumbar paraspinous muscle Physical Examination VS/Measurements Vital Signs 01/14/2024 10:57 EDT Peripheral Pulse Rate 81 bpm Systolic Blood Pressure 108 mmHg Diastolic Blood Pressure 70 mmHg BP Site Left arm SpO2 96 % , Measurements from flowsheet : Measurements 01/14/2024 10:57 EDT Height 165.1 cm Height/Length Measured (inches) 65 in Weight 129.32 kg Weight Measured (lbs) 285.101 lb Weight Dosing 129.320 kg Body Mass Index 47.44 kg/m2 Bern Body Weight Calculated 57 kg BSA Measured 2.44 m2 General: Alert and oriented, No acute distress. Respiratory: Lungs are clear to auscultation, Respirations are non-labored, Breath sounds are equal. Cardiovascular: Normal rate, Regular rhythm, No murmur, Good pulses equal in all extremities. Impression and Plan Diagnosis Lumbar spondylosis ([id number] M47.816). Plan: Continue with PT. Continue to encourage attempting to ambulate independently.. Orders Orders Evaluation and Management: [id number] Office visit - established pt, Level 3 (Order): 01/14/2024 10:55 EDT, Qty: 1, Lumbar spondylosis - Hypertension - Hyperlipidemia. Diagnosis Hypertension ([id number] I10). Course: Blood pressure stable. Will check CMP.. Diagnosis Hyperlipidemia (QXD24-ZL E78.5). Course: Will check lipid panel. Continue on statin.. [Electronically Si (more content not included)... [facility] Coding Summaryon 01-11-2024 Coding Summary HTMLBase 64 RcsqyrfiGKy3iYq+PGhlY WQ+KI0HIFZrJ40buYHxuC 8iK0IHDRsIIetqCGRYHXb MGgAzcnEbDD0psXZgKIWo IC8+VR0cSULvMbyokZOeb 4G0kPK0X51col3aGOxjcY H2AWUmIaPnynhtu0lnbMh 6IDcuNmluOyBt TZIsvT49GBT4sT19Gu23v DLbwHFms8awtNg3IxZrPL DhLAF8aJppCMxbd8LuHOR aM98osJAcl3A0 FKOxfNmyjBCzMzNjdZA5j A5zWSrftbyqh0yezhotIp r6na13qUHvw8N1mVW2Z0K igaU7LZTwzWGs RhoaqBUEcX8pydvhb5xiq bonMoLtZKIzWTs0FDd3AB SxrRqkFxYmBZ88DNC8OPZ kcqCyW0ZtKGTj lFtiUcB5m2Z7Mt8BU7XIJ mcoC4CCXBDVJBmabLB+PC 29fa97D1UfNhahTup2JXT wCED9aNH3bT0p YHJgJCdij7I7gMI5B9Teo xJfte3ud7muOUDgQNyyH7 6ekHFuj0E3IBTjnMJ0YMG wnQhpDvPfvZ97 Oyc+JCHcqDufk7NlAmihl 2ajx8ejbMu4NcvgKBWhme PnmKmmPCQ6m1EhFw3rVTE fyXS8uAR9yW7l XnAhEeU0ZMdiC680RgXyl ZWxUzliW92tJ2WihVS+PH PoXmu9CPEapAlvKK9jC6M hZGRpbmctbGVm bSuwMC2oVCJpaecwPORgf W5uDNKbV1q5ApQmMuS0GF ukY6YjHLEjokdvZm61qA6 bAoMvVdP6RJwz T6CnwaW8ZRHefNFeRKmrR VO7L39ci6I6LPXeDDCqMS R9mKW3cN4jwKythunmjWK mdDsgdmVydGlj VAopYPjqJ411ZLZacDbkR kNvZGluZyBEYXRlOiAgMD cvMjIvMjAyNDwvdGQ+PHR yUZJ0qKuqFRTf zGRlRExuQd1lgTnfiEcyZ O6dQPOnnyjaKLIwyM7sMU IncXNesUtnWV0iIKDqvjl ci727AcJiDPU7 CFBpqUBpR3ZkpS9tHzZkZ TDfZXGzF3FehZVvKWxvI9 62MBmjNeR1ALOcnoHzQ9U sLWFsaWduOiB0 e1H0Zw5Zs4GfhpuvM6Gme WNsEeZjBdzfVIj7Q4TpDf wvdHI+RW94KRXwJX55NMe 0LRN8fBwySSjp FCHsV9IteT9xMcHvELVaA GRkOyc+PHRhYmxlIHdpZH RoPScxMDAlJyBzdHlsZT0 iZj3mTKDuCYNc uBpbfWGnXwXdt1thELRhQ GugTK1ucHceM7NpaGP0NH Zmn9f4Ap91O13mS0TqxHF +VNHasBL1jSB9 nO0xKqFdLhI5MWqmN518Y pBnxNAkZovsi4cmu1xocP g2OdR7QPYunwJxrUvlTRH 1n9QhQy91X11v IHdpZHRoPSIxNSUiIHZhb Arktm1dnZ2oPv5+PGNvbC H5zDO9dY4aWyEwBlD9XPo gG894KiTdhBTz Fnkyg8zzv1syoQm6DhQcY MVnxrOebCcmIMJ0p5VjPz 07N7JgzKyrn8TkKdw3go1 7kFUmo0W7aKQ4 N3BhGYDtovxupOMpqVyuO G7zUJGsnojwDGUgnE9pCN TqM1c6MbYdIaS4OOelT5X wjwA5KFEzoDSi TBNkdTGWuG1aljmdi9hrw vxzDbSpMBZeMSj6ASx4DF AhkTcqKdXyNNO9IpP8CTV 0iXWmlD4ivGqj rwiusT0jHii+HSN0gKSeq OZBXW7zIknseXF+PHRkIH P5sEghCKbxRGOmpF2fGGI lC3l2SfOvTqX3 CPmmP3AaeeP0NYFirOOhB YLdqFYJuH2ktdost6czsx iwVcEpCIKqNUi1PYp7JHI saWduOiBsZWZ0 GuR2WOX2aFLbqL8agCtca fnyoP0fWxs+QmlydGggRG W0YPf4P4QwGan7YGVeoZq dLL9wsURyCQxo Sf7klVmwxKzdUN0xUOKeh phjb727FuJtw2exEOTvaQ ThNGdwOJN6I12vu6Y1NTD cPDBhIUO2rFT6 rO7ekKqfxftofSWlrRnfs rLkgRywCNfjQJoiK919ZF XreCazVyWpBFc4M8UbEni 7ZCYjqQtbNG1f kTHvQRsjLg5elEftwMliZ M6zQEDgyikkc449VbTbx1 bzUCOjwZSsBJaqNWN9T44 wp5C1HPAwRGGb SHO8kKB3oL6kaKsbyzind GVmdDsgdmVydGljYWwtYW jqF405MKRllCnuWvFgtCj 7N6QhHsb6NUUy uDsxYI3gxMJuYLgfXp4ao XltePkrTN0bMIIyiqcvf6 14SbBkj8laXNElwSPcIZa uJUP5F22lg4L7 FHZgWAFmGAI9bKA0kQ1pw GlnbjogbGVmdDsgdmVydG qzIXojPLxtC392BQEsrLy nPlBhdGllbnQg YGtvTXf1R6QgIpqctCT+P E17RJSoPM68fSLgmENzi5 ilsYa3XvRbIZDyWDR9dCw hEYlev6YfEBMu K62rtABhm1M4IAUjhUlab UMwCdYcgEJ7wC3hWVigjy bum6spusshKgkyr7mspa1 4kN24T05cAWrr ZHRoPSIzMCUiIHZhbGlnb h3qhA4aJw8+LMGjkNH1dB D3sP6uRQMqLoI3JXyyQ97 9InRvcCIvPjxj v5pnf0yyrUi5CmL4UZDtw gGbuFjzBMG6e7BhXg48Z8 9sIHdpZHRoPSIyMCUiIHZ cjRqnme2tzK9y Ii8+GPPyiEJ1oYG6fJ8mI cFdYoE3KIxoC895KnTmmL ZcTmbfC29iR1EvuWM+PHR hGbc4ABUolDrj AD7eiWFaGYmeWg1xVBH3U qUqNeEsSJlhE2BuIRMrzo agtaifrAO4ZATbVEIwhV2 3Zz5efVqyJCUp vCQWqV5whygke9ttxgyiX bFiXIAsLQg5ALm8HXQnaQ paNfVcGBN4ZdQ0FUF8hNC vlN3peNbrfgcz gM7dS8GeBAPhebsoYn96z C9xHxOsBpX4SUanJqj+V0 5KCuRkHPgHAGsGVR0sFFx LUpZRGMYGHL43 GP39tOIqa0X7nCO2Y4OyR KFnqxoyvreyrUD7PSMoSW WbhN91dHFkQRhtOp5yf5W 5z880ABTdGDCh wT06Ew4kgQniLQNmxXXIr C0yigvpy3hmvmarSfAxKZ HxTPu8QWg2FPTgoDfnYaN hHQO1JnG1VVL4 mQWxpD8epAvsbibueF1pF yc+NAPpUOKmOGe9NShorE Q+LOFkUTH1tHhwVDluJBQ rwJ9xYXHaQ5x4 XbTdZzM9HQqnN8QoJZVvg qcaVf49iF7zDcVfYyR1DU eiK4CznyO6UFCcyDEiRZg dPFV8W31ut5S4 LMVnEDXuKGR1jUQ8uR1tp GlnbjogbGVmdDsgdmVydG afZTepZGkmM978NARuiTs tEuN6EAodBRQs XX69GS75gEYwv7O6yEL1V 0IpATMiwwxqlzsvrDU5RI VwNBGypU47bNNcAHliKa8 uw8O6a224YSQf QJTulC05Wy7dgUvhVYEdb XZRjV7xpcnqc9dbiqmkBt SxUJOxTQn4FXl2GNAvuMu xSdLwVGK5FeK3 WOR7nBMgfV9poRdlkpuwg G9wOyc+WvDZTNaXAV19AU 47aAZnr7S3oMW3N6UdXSM pbmctcmlnaHQ6 OPZfJOFvzK42dJTgVYyvJ e8wc5Y5b154XIMuWSTuwL 71Ib2suJksEVTniATKjT8 krcxou3iohlbc NsXhSLCuVHp7XJb9DQDmz LgoQvEgDEJ5DnS2UYB8bL SfkO5jvCeexeaclE9yXqa +J4Z3S9PiLnys dHI+PD44UYGdBY66zXEbc REkt9ziiPc2GkVcPGEaAD N7wItjFSuuz9NqZIRpQ76 mtCBqy7W3YLQb fSwwjCCbJpEfjWD6uG2dL Ydfagbzv9sootoiNnbky6 rodv57hC29P67hZJmtIER oPSIzMCUiIHZh xEampz7phQ3rAa8+PGNvb ID9pAZ5cY5tFtTwVrR1DN bhY017SrDpaHMpShtoq2j xq4zyyDk0JcRv WSZrsiNaoSewFFM6c9AdW l93R15gDTelFXTfSSOlRC WyXJFghPsezf8puQ2uXd7 +PM1wf9yrsm05 yC39wDB+YWFnBZM2zDdjD WalZXPurJ1lGCnkVcD7PU RnLzEneA38kTGvWTczZg7 rbYrhiKfiQG5z ICIqkdlfn843KiSdw2elE YWucVHvDEjbVWK8J51gx3 L0CCVbAXXtWNF0bHK5mS3 hbGlnbjogbGVm dDsgdmVydGljYWwtYWxpZ 590DEKhdJdgTgDwuKFfD6 snvtSKEN1yVjqptFE+PHR pKKM8tFlcAGoe LOXmvJ6dNEDoR0h1TgXuV uY2MQfbG0OcgbF8WDZmnF TdTUZzjXBAkJ5bghqlc0n vcjogIzAwMDAw OJa2INl7MEIwoNcxJvGcO VN0FrC5DIJ0iBSzvZ7huT mjiwsarY3yDfy+RklOOjw vdGQ+PHRkIHN0 sKehWKvhLNFuwN3hYGNaS 5d9WkDqXnM7HTuwC8Ibbh J7SRFuyAUgEUYriXFAqH2 xgfqso3vqvlxy EkDvOQCpWOe3MYl9RCXit VxlWiCrGIM0NlJ3KOM2cU DpaG2coTpqbwoecR6uHgd +TVJOOjwvdGQ+ UJIeXYR1gWwtWUurBAZrd S8xILSbC3d7EzXaBsM8GG rsY0ZpwrF1SZLkaGLwTKG bfJAMuM1agruo d9crapikExPqNJYbUFn3H Vi9IURtyOnrLuEwZWT1Dg V7EKZ9oNTntL5snFwpnql gsX7nCop+UGF5 CQU7HD53CF32G4LjGmdvs GFibGU+PHRhYmxlIHdpZH RoPScxMDAlJyBzdHlsZT0 tCc9tVPLqXYVv bGx (more content not included)... [facility] Cons[facility] Form[facility] 01-07-2024 Consent Forms [id number]#1. 00[facility] Controlled Substances Agreem entson 01-07-2024 Controlled Substances Agreements [id number]#1 .00[facility] Progress Note - Provideron 0 01-07-2024 Progress Note - Provider [id number]#1. 00[facility] Outside Recordson 01-04-2024 Outside Records [id number]#1 .00[facility] Coding Summaryon 12-29-2023 Coding Summary HTMLBase 64 QfwgumztXOm6sNv+PGhlY WQ+SC4BBKXlN79fwMGdrV 4gC5LAXJcCNpcbLRLRJRr QGzGzdnVeZO6svWRrGPEa IC8+ZF2wCYJfQshnpZCbx 6C0vBG6O88okx2kSAurjX B4PFWfWrSvltlft5ufhQh 6IDcuNmluOyBt QWHypX05RVV9oT76Nt38n PPyhZGlk7ielHs3EcKxQP AtFGN1gDneXRzwq6NjXVP kO49ewCVpt0U2 IFComOrwxYKvOnAxfSA9g R7vPFajhhjrn2nskuczDv a6ay73hTXrn1V0gCI1H2M lhkH9IPTpbMIa JbqkrRFAiL9wrhhcp5jpc dtfUkFnLDOeNTz7SDa8JF DquWbyMhRiKK39NCO0LOE etuDyM3TeNQZq dFycMqZ0d6D0Zf8SO7SMT xntL7QRTBSGMBctyKD+PC 22fv36G7NnIvbsEav4TCJ pXRB5cGM1zQ5j UEGuDDocr9I5iJP7A8Guv xFcpa8ue5rvAKZpUYwaN8 5zdSFkw0R6GTTwlMR4BOW azIzgCpJzvY14 Oyc+YGFrtLngs7UfQwsrh 6hnl3vnzOn6XtnePHYalk ZvfWhrNWV3d1KzUd6aOYS nnGJ0wKW3zN6v IxBmGnM1HCxxR968QmPvv VUnSenbH43bY1MalGC+PH WeBav1EABzjDuoUD4fS7C hZGRpbmctbGVm xYzkHW8rIUBrctxzQRApr Y5rZOWjO0z3SbWgYnA0NY myB8ScNZNtvagaEy74dR2 uJySyOgL3FKfa J4PdmoV4XKUpyIVjOCimV YK8C01us8Z6UXWdPSGsGQ W0iUM7gU4ofSvtzyzpvBW mdDsgdmVydGlj MJmsZFeoM515BREjhBjdF kNvZGluZyBEYXRlOiAgMD cvMDkvMjAyNDwvdGQ+PHR mJZL0dRcwBTGj eYAsAFgdMd6gjWkgzPzdZ X0oGBEewzrgXIHaaE0mEW JuxCJodOrzYF0cTXPdyst pb093SeLeCNH4 ISJikAPcW9AjkY9nJvGqM SAkLMRjL7XmhVVfWHniJ3 07OQspEhP7EBGyubXbS0F sLWFsaWduOiB0 r1I1Bw0Rm1FsxcdiD7Mft RSzQmGeIwwsFAc2G9QwXj wvdHI+RT96JPJsDF08XMo 5ANB1nDyiDWpz KGYzX8ZppU1iPgMqTHNoB GRkOyc+PHRhYmxlIHdpZH RoPScxMDAlJyBzdHlsZT0 tOs1qVFVdGXKd pSinhRVwXvRlg8xeGLDnV AigGW4zrBviW4XjqQP0YX Laz5p2Un91E13bU2GuxQH +IRBjfEA7rBO9 hX4cRbMoUbO5QRbvJ435U nRjaDKiOghil1gde3qifG y4OxP5OXZlcpJbfCuvEAC 4v7AbAp48Q36r IHdpZHRoPSIxNSUiIHZhb Fxenr4krQ3eIj4+PGNvbC E2uQM6kK3uDkKjSnA7ENi vB048WtZzkINw Dawry5njb7zolPd4TmYgJ COsfuCjyLxcUXP5c9FlCr 21V6SmaDduc8AkLzp4hb7 6qXBtx7Z7eDX5 H9VnJKJvduisxHVocKfuL N0dMXNitmgoSTOolU6pON MsA0d5RvZiSgF1UHrdF0S engM0MUQmjOJv LBQtpAGYnJ4qkyvky4vcz awqYiHyPPLlOGq3DUn1NL GqnNsjTlHfKRA8MfZ5YBA 6bSQwdS0ehYax wwlieF4pFwo+MTN6qBDyo DBFDN5cChwxvUN+PHRkIH I6eNbrVPfjKHTfuT6kLHT xU4i3GtTmXlI5 YLqeU7SvylL9RTSdsBYjM TDmrEDPvH8vjravb6embp qlAuOyEYLkGCb9QTx9ZWR saWduOiBsZWZ0 ZaP9UHT4vVKxjA6clXmds dszlZ9dZmu+QmlydGggRG S7KQu7I0PmKzh7GGCsmYz cXW8gvFTfAKan Jo6lnFxfpSvrFP1xGDOrc kaft507BtKjv2aiXPDvqZ WyJJxnHDZ4N12yu9L4PPE fKALxREN3dEL9 hX3dqYrckvisgVBwrYpnp cGcdRszIJtyTKzfH759GR EuiPeoQwNdASg8K5RgZfp 8ZLVeaDmaHK4t eVBpIJxjYk7oyJkvkQroP R6bZBGmvtzoa404RqVaw4 rnYZYlyOBpWTxpCFF3D01 qa2F8TCTiRLCt GUI1zCZ7cC1agGewwebyc GVmdDsgdmVydGljYWwtYW dpE294JHIxyXxbWmPjuGy 9P8GfGmu5VRMn gXfeWA1ztCUjUBdrNf7xl NdltFgnJI8pJFZzykmzr6 75FlDos6zrNUZeeBRfZQf mWSP4L37zk5N0 VALlSBQsQML6kSH6sD0hl GlnbjogbGVmdDsgdmVydG yyZPntPSuwW774HFFmmLo nPlBhdGllbnQg MRhtSHa5S2VbXqwfwTW+P D97GRLhMX43zGFqoLWpm7 npsAs8DsZxEYLbUOU3oTf uNGpqr2FaOHTd Y14jnEZxb0J9URKkoCtwf RBxHwIbxVI0tM2bCFsiod msz2lacomgVszjj7dygn3 1rN08D39nCIsz ZHRoPSIzMCUiIHZhbGlnb a6uqS6yFe5+TMArxZM8rN B3pW5rQTPqLwT7YBvwE54 9InRvcCIvPjxj c4gjy6evbQg0BdK5JMKci yAqzEgzVFB3i5InOb51X6 9sIHdpZHRoPSIyMCUiIHZ rvYsltm0edY7a Ii8+SNOdkKB0uQU4bA4vR gSfTnG5JSlkC477NjOshE GgJuamD03iP6MuoCR+PHR tAcs6PIKlqIrq CP0jaSSqNGunCd6vHJY6I mVbLuQkTBygG6OlBAMqas tnsgsuhAN0PKPgYOPhbC6 7Qj4opXolPCKb aOQJiK4mmzmpn7rlwnqzS pYfBJPiBEs8QVh6GCLvgI bhFxBtZKB9SkW7VRH8wQK bpU7omYlwutal rP7mH5ZbVORfdzhjDw84a S7wVoDuZpN2XFlxGut+V0 8THjTsWDnVZToQCA1iCQy XJkASZRUNIT99 QV85gTYzi9Y7kAK7T5RjP NJdtwrhjaoptAO4ZHLgXO YtpR25gQRaJWkjJn0xk4S 5e296SOQfZFLv yR09Ms3nrFhvKBZlzCXDz O0ckvgmh6kzrpmfGrMiPK SeMCh5OEq0VOJetUkpTjW xRQZ2NnG4UAA0 hJBkzI4ojViaxbpqzC5cN yc+ZIKnSEAeEVj4EUlgcF Q+JFZeCOM0fTwtTJvlZSB qlY6mURMtE0e5 IbCgWlC8TUwhL1KuTZOpf btpTe96lL8sEiNtNgO1FD tcZ4OdzsI9RLTjaTNtTAd aWFP7I78bf6A8 JCZcAMNjUYP7jBJ0iW6fp GlnbjogbGVmdDsgdmVydG elIGunXAnqX938AJAupJa dUlZ9IOtzLSCn TP36VQ72jNLdm0T4nMA7A 8YyNQSzxczyoturmGB3ZK EtMMKmqK33mJCySTbgEf1 kg3M3p176DNXa FYMusJ14Lv1gzBtgMDVth WXNjF1rhhwgm0ywzrsoNp PnWMWiKVd6UIi8NBSeyOc uZxJjEBU0PgC3 NRP7qQEzcN9olNkssbhqt G9wOyc+SmINJRmVNP12ZQ 87nTVqq7G2tGA6P1OvMNQ pbmctcmlnaHQ6 UHUkQPCgvR71iBSkKNppZ s1lq4R2g077RBBwRMAicW 12Oc6khMrkIHOoqNBJfI5 wcnyiy8wspyss RxMyNQWbZUf2LFj5JRCuw UhhMcCtCCP9VcA2GRN1pZ JzlB2ggAroghufiB8qSjv +KLC0PWN5hgqu sxl3U4WwDyqbvQM+PC90Y NHfLY31vXTcgVHue7mhfH v2IiCoSPAfPOS0aGapUCz ln2XzQOSmI48h hDKva2Z7IBFtcPvvlSWjL oLlcJS3dJ4iTZeipzron6 nzbvzeIhcko5tnko33cP8 9T19sSDayVUXd HMXfRKPpEUUbsDtshf2bp G9wIi8+YLIxeMZ6oQI7mZ 2dGnLlIzD0RNziE949XkC csVBeBvmja7xc w1vacAi0QxNtCVXrbvFph FuwHFL5z0OuIz66F90wBL dpZHRoPSIyMCUiIHZhbGl cdx1lqQ4lMd3+ AN3ec5mufb99jT95hPV+P LAmPVC9wWftKWptXROrgM 3hFUoiKuD3QFBlFrZkpX0 7jYKnFBysEa1m mKjwzIwlQT5cUSZwhizqo 661KqOmd2uiMNObbHRlBJ ojQUS3I75ze7P0WZGuVOK kITP8lRG1oM9h bGlnbjogbGVmdDsgdmVyd NsrJHyaLQnfR848QLDhwU lhViYolAWmQ2uhyuUFBH1 lOjwvdGQ+PHRk TDT1lKxyIFllGKGiiK2gC LEaP8u2SkUrFrW6DSjqZ6 ZudwB3GCMyuLVfPIQroHE ClR9vqvdta3ci lctzKmErYYDbDWz6TBp6I GByzKlvJhTgEKU0EzE2IL T8wNTnjE7haCtdkkrbxC8 wOyc+RklOOjwv dGQ+YONgPVD3jXffXKvtD XPfiP2eNBFuS0l1RjGpJa U7TNmiF9BxkqH6IJJopEZ nNTAjnDRXnV8w ossoh8abjmyuFvLcSPBjI Xp9KKb7QBXscBawTjJqOI V6CwJ0DOK5zJYfmU1ljIr dbryyuC2zVec+ TVJOOjwvdGQ+RVVsHOY7s PwnPCfjOGQfgY2iRBXpN1 f6VqDbKuU8MUmvY6XkmaJ 6IGJvbGQgMTBw sREPmN3ppsxva6zzrivdL fUgSZJmYHs8VLy1HMEkfG seItKsPFI0PdE7CBL9lGM lqK6tvAislswv dH6sJzz+VKW7YGG5JW45M E25L4BpChitlFYmwHZ+PH RhYmxlIHdpZHRoPScxMDA bDjZztCxqBL4c Ym9 (more content not included)... [facility] 12-14-2023 Consent Forms [id number] .[id number] [facility] Inpatient Patient Summaryon 12-11-2023 Inpatient Patient Summary [facility] [address] [id number] Patient Discharge Instructions Name: TERE RADER : 1955 Patient Address: [address] [address] Primary Care Provider: Name: Dale Flores MD After you are discharged if you find you have any questions, please, call [phone] ext [phone] to speak to a nurse. Discharge Diagnosis: Prescription Information: If you have been given a prescription for narcotics, seek immediate medical attention if you have any difficulty breathing or any sudden status changes such as confusion and sleepiness. If you or anyone you know is experiencing suicidal thoughts, mental health, alcohol and/or drug addiction problems; contact the [facility] 12/01 Crisis Hotline -Text 4HOPE to 617982. If you received any narcotics, sedation, or any other medication that causes drowsiness for the next 24 hours, unless otherwise directed: ? Do not drive a car. ? Do not operate machinery such as power tools, lawn mowers, drills, sewing machines, or stoves ? Avoid alcoholic beverages and drugs for allergies, nerves, or sleep ? Do not make important personal or business decisions or sign any legal documents [facility] would like to thank you for allowing us to assist you with your healthcare needs. The following includes patient education materials and information regarding your injury/illness. TERE RADER has been given the following list of follow-up instructions, prescriptions, and patient education materials: Follow-up Instructions Medications During the course of your visit, your medication list was updated with the most current information. The details of those changes are reflected below: Medications to Continue That Have Not Changed Other Medications acetaminophen (acetaminophen 650 mg oral tablet, extended release) 1 tab(s) Oral (given by mouth) every day as needed Pain - Moderate. buPROPion (buPROPion 150 mg/12 hours (SR) oral tablet, extended release) 1 tab(s) Oral (given by mouth) 2 times per day. Refills: 3. docusate (docusate sodium 100 mg oral capsule) 1 cap(s) Oral (given by mouth) 2 times per day as needed if needed for constipation. Refills: 5. ibuprofen (ibuprofen 800 mg oral tablet) 1 tab(s) Oral (given by mouth) every 8 hours. for 30 Days. Refills: 1. losartan (losartan 50 mg oral tablet) take 1 tablet by mouth once daily. Refills: 0. pravastatin (pravastatin 40 mg oral tablet) take 1 tablet by mouth at bedtime. Refills: 3. solifenacin (solifenacin 10 mg oral tablet) 1 tab(s) Oral (given by mouth) every day. Refills: 3. Template Non-Formulary (Golo with meals) 1 tab(s) Oral (given by mouth) 3 times per day. traMADol (traMADol 50 mg oral tablet) 1 tab(s) Oral (given by mouth) every 4 hours. as needed as needed for pain. Refills: 0. venlafaxine (venlafaxine 150 mg oral capsule, extended release) 1 cap(s) Oral (given by mouth) 2 times per day. Refills: 3. It is important to always keep an active list of medications available so that you can share with other providers and manage your medications appropriately. As an additional courtesy, we are also providing you with your final active medications list that you can keep with you. acetaminophen (acetaminophen 650 mg oral tablet, extended release) 1 tab(s) Oral (given by mouth) every day as needed Pain - Moderate. buPROPion (buPROPion 150 mg/12 hours (SR) oral tablet, extended release) 1 tab(s) Oral (given by mouth) 2 times per day. Refills: 3. docusate (docusate sodium 100 mg oral capsule) 1 cap(s) Oral (given by mouth) 2 times per day as needed if needed for constipation. Refills: 5. ibuprofen (ibuprofen 800 mg oral tablet) 1 tab(s) Oral (given by mouth) every 8 hours. for 30 Days. Refills: 1. losartan (losartan 50 mg oral tablet) take 1 tablet by mouth once daily. Refills: 0. pravastatin (pravastatin 40 mg oral tablet) take 1 tablet by mouth at bedtime. Refills: 3. solifenacin (solifenacin 10 mg oral tablet) 1 tab(s) Oral (given by mouth) every day. Refills: 3. Template Non-Formulary (Golo with meals) 1 tab(s) Oral (given by mouth) 3 times per day. traMADol (traMADol 50 mg oral tablet) 1 tab(s) Oral (given by mouth) every 4 hours. as needed as needed for pain. Refills: 0., OARRS reviewed on 10/03/2022 venlafaxine (venlafaxine 150 mg oral capsule, extended release) 1 cap(s) Oral (given by mouth) 2 times per day. Refills: 3. Take only the medications listed above. Contact your doctor prior to taking any medications not on this list. Diet & Activity Patient Activity Level: Patient Diet: Patient Activity Restrictions: Comment: Patient education materials, if any, will display below Viruses or Bacteria What?s got you sick? Antibiotics only treat bacterial infections. Viral illnesses cannot be treated with antibiotics. When an antibiotic is (more content not included)... Normal [facility] MAGR Intraoperative Recordon 12-11-2023 MAGR Intraoperative Record MAGR Intra-Op Record Summary Primary Physician: BEN ZEE MD Finalized Date/Time: 12/11/23 11:57:48 Pt. Name: DIORTERE/Sex: 1955 FEMALE Med Rec #: [id number] Physician: BEN ZEE MD Financial #: [id number] Pt. Type: D Room/Bed: / Admit/Disch: 12/11/23 10:41:55 - Institution: Case Times MAGR Entry 1 Patient In Room Time 12/11/23 11:50:00 Out Room Time 12/11/23 11:57:00 Anesthesia Start Time 12/11/23 11:52:00 Stop Time 12/11/23 11:56:00 Surgery Start Time 12/11/23 11:52:00 Stop Time 12/11/23 11:56:00 Last Modified By: Marlene Lundberg RN 12/11/23 11:57:00 Case Attendance MAGR Entry 1 Entry 2 Entry 3 Case Attendee Allyn Ortega MA, Barbara RN Kokinda, Diane RN Role Performed Bmx Rider Bmx Rider Bmx Rider Time In 12/11/23 11:50:00 12/11/23 11:50:00 12/11/23 11:50:00 Time Out 12/11/23 11:57:00 12/11/23 11:57:00 12/11/23 11:57:00 Procedure Hip Injection(Left) Hip Injection(Left) Hip Injection(Left) Last Modified By: Marlene Lundberg RN, Barbara RN Long, Barbara RN 12/11/23 11:57:01 12/11/23 11:57:01 12/11/23 11:57:01 Entry 4 Entry 5 Entry 6 Case Attendee Wally Garcia Luke T RT (R) CommentFelicia RT (R) [employer] ARRT CT Role Performed Scrub Personnel Order Expediter Order Expediter Time In 12/11/23 11:50:00 12/11/23 11:50:00 12/11/23 11:50:00 Time Out 12/11/23 11:57:00 12/11/23 11:57:00 12/11/23 11:57:00 Procedure Hip Injection(Left) Hip Injection(Left) Hip Injection(Left) Last Modified By: Marlene Lundberg RN, Barbara RN Long, Barbara RN 12/11/23 11:57:44 12/11/23 11:57:01 12/11/23 11:57:44 Entry 7 Case Attendee BEN ZEE MD Role Performed Surgeon - Primary Time In 12/11/23 11:50:00 Time Out 12/11/23 11:57:00 Procedure Hip Injection(Left) Last Modified By: Marlene Lundberg RN 12/11/23 11:57:01 Surgical Procedures MAGR Pre-Care Text: A.20 Verifies operative procedure, surgical site, and laterality Im.150 Develops individualized plan of care Entry 1 Procedure Hip Injection Primary Procedure Yes Primary Surgeon BEN ZEE MD Modifiers Left Surgeon Comment Left hip injection Start 12/11/23 11:52:00 Stop 12/11/23 11:56:00 Anesthesia Type Local Surgical Service Pain Management Wound Class Clean Technique Details Closure Technique N/A Entire procedure No was performed via laparoscope or robotic assistance Last Modified By: Marlene Lundberg RN 12/11/23 11:57:14 Post-Care Text: O.730 The patient's care is consistent with the individualized perioperative plan of care General Case Data MAGR Pre-Care Text: A.350.1 Classifies surgical wound Entry 1 Case Information OR MAGR OR 02 Case Level None Wound Class Clean Specialty Pain Management ASA Class N/A Diagnosis Preop Diagnosis Left hip osteoarthritis Postop Same As Preop Yes Postop Diagnosis Left hip osteoarthritis Blunt or No Is the procedure No penetrating injury considered occured prior to Emergent/Urgent? the start of the procedure: Last Modified By: Marlene Lundberg RN 12/11/23 11:52:09 Post-Care Text: O.760 Patient receives consistent and comparable care regardless of the setting Time Out MAGR Entry 1 Procedure(s) Hip Injection(Left) Time Out Checklist Verifications Team Introductions Yes Confirmed Identity, Yes Completed Procedure, Incision Site, and Consent(s) Presence of Yes Site Verification, Yes Necessary Site Marking, Site Procedural Marking Equipment, Devices, Alternative, and/or and Implants Site Marking Verified Exception in Accordance with Facility Policy Anesthesia Review Antibiotic Received n/a All Anesthesia Case does not involve Within an Concerns Addressed an anesthesia Appropriate Time professional Interval Prior to Surgical Incision Surgeon Review Anticipated Blood Yes Expected Case Yes Loss Risk Addressed Duration Addressed Critical and Yes Non-Routine Steps to be Performed Addressed Nurse Review Equipment Yes Fire Risk Yes Checks/Concerns Assessment Addressed Completed and Interventions Performed Diagnostic and Yes Sterilization Yes Radiological Test Concerns Addressed Results Displayed are Appropriate and Labeled Other Concerns Yes Addressed Time Out Allyn Ortega MA, Long Time Out Time 12/11/23 11:51:00 Participants Marlene ELDRIDGE, Brenda Segal RN, Wally Garcia FRANCHISE FIELD CONSULTANT, Sami Singh RT (R) ARRTISABEL THOMAS F MD Last Modified By: Marlene Lundberg RN 12/11/23 11:51:51 Patient Positioning MAGR Pre-Care Text: A.280 Identifies baseline musculoskeletal status Im.40 Positions the patient Im.80 Applies safety devices Entry 1 Procedure Hip Injection(Left) Body Position Supine Left Arm Position Resting at Side Right Arm Position Resting at Side Left Leg Position Extended Right Leg Position Extended Feet Uncrossed? Yes Press Points Checked Yes Positioning Device Pillow, (more content not included)... [facility] [place] [facility] Pre-Op Record Summary Primary Physician: BEN ZEE MD Finalized Date/Time: 12/11/23 11:48:33 Pt. Name: ETRE RADER/Sex: 1955 FEMALE Med Rec #: [id number] Physician: BEN ZEE MD Financial #: [id number] Pt. Type: D Room/Bed: / Admit/Disch: 12/11/23 10:41:55 - Institution: Pre-Op Case Times MAGR Pre-Care Text: Patient will be optimally prepared for surgery. Patient is free from s/s of injury. Provide information to patient/family related to plan of care. Verify patient allergies. Confirm identity and verify consent before the operative or invasive procedure. Entry 1 Patient Arrival Time 12/11/23 10:55:00 Preop Departure 12/11/23 11:48:00 Last Modified By: Marlene Lundberg RN 12/11/23 11:48:32 Post-Care Text: Patient is prepared mentally and physically and is ready for surgery. The patient remains free from s/s of injury. Patient/family express understanding of plan of care and participate in decisions affecting his or her perioperrative plan of care. Allergies documented appropriately. Patient identifiers and consent correct. General Comments: Pt arrives to psw in WC. Pt denies cp, sob, cough or flu like symptoms. Pt denies pacemaker/defibillato r or sleep apnea. Finalized By: Marlene Lundberg RN Document Signatures Signed By: Marlene Lundberg RN 12/11/23 11:45 Marlene Lundberg RN 12/11/23 11:48 Unfinalized History Date/Time Username Reason for Unfinalizing Freetext Reason for Unfinalizing 12/11/23 11:48 [email or web address] Modify Pick List [facility] Patient Handouton 12-11-2023 Patient Handout [facility] Coding Summaryon 11-18-2023 Coding Summary HTMLBase 64 BgmkxodkFVu1rDj+PGhlY WQ+LJ8DRLNyQ77ciTPieV 4fH6ZWQRlFQankIJVLIEb ROtHrjvNmNI0njYLrUWKn IC8+WL4qLOEfWfgedTJya 8J2bLB9B13opt0pRWlsxY D2FRZzDcDouszpa2foyGd 6IDcuNmluOyBt IXEkfG44AYB4cP36Re48g YUxxZCfn6yhmCd5PbRpNJ EjEDO6qOpzQBzsk4QmXTA hC28onKDvp3B0 KRZolHedwVRkMiZpeKE6e R7oEZsnyghfm5emthwgRi k6xj94rNLgy0Y1pCM5S6Y xedE8JHVleGBq QyrbsNHBnK4hpgfzv9pnv uquAtPlCIDbCJb5NEg3PK WhfQrjLlKsDH93ZKL2JKI gmjGqP2UuCPGi mDltKhS4d4M6Hc5GZ4LBK giqY1GPWZUMDYrwhDQ+PC 98le29D8HgOhhhVyb4EXL dBBD4jWW1lA5k RIPiICysv8T9hIO7C6Aji tExzg7yv8buDVNcPEkvF6 2ngHPpw3B5EWJbuLD5SXP seHolNhTajK73 Oyc+NQYhsGbor7KiFngtg 0itn5ncvEa0DbmiRRHjed FsgXfkXQC2u4PaRl4jRRV bqHN1rRF1mI2g FzZeBvR9RXteR605ZbFqb QMnJfvzM07xZ0FftHQ+PH KaObp5FBFgsWspNH9pD0S hZGRpbmctbGVm sHgvYQ7jGOAefqyxLJKsw K1tMRKqZ7n5OrJuJyB8VU sgN9KfLLUrcuquPq11iP5 xKbKmZiP2EXvv X3DvbuS5ABRlfGNtBDvhM LP8F20xb6V5IWAdMOHaSR G2uEX9gJ7jhGyknscxbIT mdDsgdmVydGlj DMtwQLdoS881JMQhvElwA kNvZGluZyBEYXRlOiAgMD UvMjkvMjAyNDwvdGQ+PHR pBIG9xQcnVTSx rETwYDtzBj5gvVwozXcyL I5pSXSscqykTQPiyT4oZI YcjGLhpWqzGT1uQTYcyuh ip178VtRbHFC4 YOMttJEwO2ZttT2fEgXkV LIhEKJfR8UqyDMrPRgzF7 65ZIzzLfR0FZBkoaSnK8C sLWFsaWduOiB0 z2M2Zl9Bh7DkviiuX4Ttg CYjAjQbXjquTBt2A0CaMa wvdHI+LE76VNNzZE68YOm 5QVS6nWjgLHke MOBcT1KzhW6nNlNaRGUvO GRkOyc+PHRhYmxlIHdpZH RoPScxMDAlJyBzdHlsZT0 lHl1wAALbOBZw sDzlkLOdCpWpt9lgFVEhK CakWO2jyKtzH8RelKH4JV Xqb6s8Ma46S99jM0AwnNT +YJYiwQB1eQP3 wX8yYxFwDrL4MQuxB606C eXkqTFkOocwe7hwg4nqbV g7XuK1QWCzlfSlyRuoHYA 9m8YxHn84F62m IHdpZHRoPSIxNSUiIHZhb Socbc3inB6lYa9+PGNvbC G8sKN6bH0hThHmBmZ4TEn tR204ZzNipLIc Kkffo1wit0cncFw8YuEzQ LXinrSloSenRXI9v3MjRf 08W4IxhLyne2GqPcg7qb1 8aEDes9I1eZW8 E2GuDVYmoqrawBAynVznO S5lQWJmbqdaRRSwbR5gGF czbG6DOAdxGNf YHQtaFBOoT0vfvxwk1oqc bgmPmZdDMZsHHj8WVo7PY UwtSijGbPaDYA2UqG5HWE 7xNMxoQ8bbGzo ivubeL9gIzn+OZD7yAUjs FSNMV5mJdjevGJ+PHRkIH F6yTdwVEjbFDPjvB1hQSY wR4w0QvJdGcQ2 IKtyK1CqmbD4VENjjXIdD TFnrYVPbM0jtkcri9qnmt frQqHuXVDxTEb5MRz7XPI saWduOiBsZWZ0 NpH5UAS3dHPtjK6koYcib bflwI4kLnv+QmlydGggRG P9NBj3Y5NrRvm0FIYhvTx hGQ4lfVObGYvt Bd7goSzczFzcQZ2cSGKsa brsg213BpGnl8kcHIBlcV AeRCndRPN4U98eu8L9UGF tALLdNHH5iMB8 uV9nbGqwbxjsyFYewZjmf fPacXouIPzxQBmbB594XF WejTvnOgZrXNg6V3ZxAjz 5TZZkgFbhCH7b eKRbSPneJm9vuOvviJgtW S4lIYIrwtxzh321YpFdt1 tfLYAolKWqYLzyLSR7V08 ob3Q7HXIoEFZn FFN7sSP0rP4moTsfcmmtn GVmdDsgdmVydGljYWwtYW xaV977JDUiwLddWhOtnIc 2O4BhSvo5NVBh dRvqCV3qlBMfSPyaBz6fk GlkyRhtJF2oVZYedvjog1 48KkGyt6ivQXElpAVcBOd cMEI9N84rx6T7 ZAZtBBLpKAY1jXG5sA8yl GlnbjogbGVmdDsgdmVydG doCGynKKwrP885HTAykEo nPlBhdGllbnQg AEgaXHa1V2LwJtxpuSH+P U19MABcDI25hUEfkEGta1 jefJw8QsMfVQEcENG1uHt gOAhkc5TxCUHn E28hjOQry5K3JKOuoJllh SJyOuNjaPS8jA9jLAncll gex3unyumeJlsag9dcot3 6pY62B83rEDhf ZHRoPSIzMCUiIHZhbGlnb t9acM7oBv5+QYQptKW4uZ F5nU4mVZYwHdV7BBecL01 9InRvcCIvPjxj m6mqk5ylsVt6DqW8WZMfz aVbvLatMRE2i0JkFe41P2 9sIHdpZHRoPSIyMCUiIHZ gbQluix2kiQ9d Ii8+UJSydKU0aOU8rL0jD iWcGyC6UTsmY266NjUgeA FwAxgdY56qZ4RmmQR+PHR eRal1WFPehAwi UQ8giUVaNUwbJq9dTYT8Y pCaPqRdZVgtS2DnVMHmvv qjxcwleNC0FRSzDJKqoN2 2Fc5qiMtiFWFs gBHJuV2bdwliy3aydxycF hDmBZNoRWb5XKa2EFQecN ahDuXxKAG0PdJ1TMM7uZJ dxF8cmXeutdnw jC8zG4FcKJDigrpeEu95p L1eWeXpWwL8KFreLyq+V0 5SRhLxEZtLSUzNDD6yLJo IHcBWZLQRDT07 TO67vQTte7B8oCH8C3SlS XEgzhnitjqwdVC8NKIrLT ZtrP49rUYdKIrpQh8la4H 8w624YWUjJNDg nU49Sx1mxLxjKQKqhVJOe Z2lyntiv3wmvkbjJaTuTV NbWHj1VKs2PJMymPbgDsK kBHC3WpI2NUN6 vNNzoD5qnKjkzhuapC6iF yc+DUMiSZOzHOj7BFrdsW Q+LHNoSYE2qIrjPEowGSI hpN7lGWJuU1u7 RoIvEtQ8BKqcR3YoUYRan eafSi08bV1wOmUnRsB3RY mkE0MapgL1RQPwlCClCHk kOGN8E39uw3D6 WXYdLCUfPNG7sUY5oI2ps GlnbjogbGVmdDsgdmVydG efIMdpZMxfM497DCJvlSd gOeD5PQleXCFz VC21TO07qWIas1L9uJJ3Y 6DqBTLymrrjwxvtlNE1KA QwRCYddB01oIOeUHkkRf8 rv5U3y633GRJa FPJibM54Em8xzRekUFAbo ZVSqG2zvgaoi5rljvucGr QyPOJnNGb9XAo1MKTmsBi tQmQtQAG7TdO9 OWX8qCOkwL9ajXdzupkuv G9wOyc+WiLHKXxZAZ99AK 74zFAkx3N2mLE8B1EaPSS pbmctcmlnaHQ6 NYUdNCHodW39fHWxBLxoF n7pl9T4r585VCFaNYGzfX 31Ky1swZdiLQYdeGFRiY0 ctchqj2vdjtqz GrUbDBIvTOu9GKe9VIEiz VacOdLhVTN5DqR0SIA0tU EalS3huXzegukkzE6bYwc +L1W8Z8CwAeya dHI+QI23TMYsUR33cIKvx PAzu8hnrOa3MgIkSHSoFG K2kIivKLvuv6AgCSNtV01 zyYIiq5Q1JOMl kNwqmMIvUrGrxWI4sR6vX Hrapvrii4towysiFmmvo6 djli17aB01Q96kBGgrZYC oPSIzMCUiIHZh gLpkab3myZ4vJx8+PGNvb EP0rIU0wU0yBvZdYeG9DW ncZ435AkTxgINoMschr6u cq5mfjVx1RuCa QUHkydDbkNegVAV9o3DsH e79S19sUTviILMmGVOzQL OwBVQffVglek6fxL7lRd3 +VU9lu7estu61 qT16rRV+ZAVeXRI7wQmgK DinQUEkiB5qVTqiVlU1FF RlFfXkpC08jLDvIVluZh5 vtLmvyKvuTE5d WEZuhjdki623TxYrr4eoG NYbxSAjCHrgATN2E06ou4 J7CVDvJNJrYXF1oBZ9oM2 hbGlnbjogbGVm dDsgdmVydGljYWwtYWxpZ 993JZVnoGtfShVfvGVoP6 iilwUUFQ5vGjyokLG+PHR rBBA0sTeeAUjv QINxaB4eYQVkN0s5AfLxD qD9BZvfT2WejwJ8UXGcjH XoOIQncREIfJ7vlxvhy3h vcjogIzAwMDAw ONf4CAt7QEClfRviWfZwM DB4YbB7NND1gVMvcY6ylB aebtzdnR8pCij+RklOOjw vdGQ+PHRkIHN0 hKizNQugJWBgeU3pKOJvL 9f9ZxVbTyB1RGywZ3Yqfg P3XPOosJGiAWRqxGDToW4 vdnpou6washcf IbRqNXFkSVc1ENx6STOkt AyrVwTqNDO4PaZ5PVU2oH WstY5ylWborwduvK6sAkv +TVJOOjwvdGQ+ YIWdNMU0bUgjBTqzLKYyr T2rEZToB2z5YaXaZlG1EL ycY4RvtjI4JSEfdEJgARE dnCVBfW8pkjzb g7jnoflkRgDcKMIyETs2J Qz9OVVheTznOdFgVRW5Fm G2UUC2xCLkgZ4rlRfbrio xyL0hLgs+UGF5 YSL4FC14DQ08L2IqNtlel GFibGU+PHRhYmxlIHdpZH RoPScxMDAlJyBzdHlsZT0 zKr4lAUXmVYEa bGx (more content not included)... [facility] - [facility] 0 11-17-2023 Progress Note - Provider [id number]#1.0 [facility]-12-2023 Outside Records [id number] .[id number] 11-11-2023 Coding Summary HTMLBase 64 LeninakuAUr0rVy+PGhlY WQ+TP7MOTZkP96lxGJqlX 6eN0QVTJkFFoukSZJJCZs SEtIhbhWlIF8ezQEwOEIr IC8+RY4aLDChAzealNKrp 6C0yGV9B28tsm3gXGfvbM M9NGZgVaGvwjlus6lzaXw 6IDcuNmluOyBt ZOBrpI15FYN0yE36Wv23e PMjdRGsq1nrrOl5VsIoCS HwCGI0lAwqNLbrs0CbZMZ jZ00waBGsn0O9 OLUcjClmeMUkTgSapXL7i V6fSInltzpfh2emtrcbZk c3kg41lEQkc4A7lVM6X5A ovlO7KPGqsVYx LrpckENAwK4qobxqe1lqf inzRoXbDDOgFMk1FDz8GK JfvPvfZkAkZC83IRG9BSR fegLrR5GxZTOh oNzzKdY7y6W4Mr2HS6RIK zsjK7OIEGBFYZocuBC+PC 62za90P7HjTxuiFmt6SMG aTCN0jDC9mB5r LXHmMNgnh6I8oSS1I2Qbc rNczw1ne8dmBBCjMBynG3 7hxVIqy7D7PGCgfXQ9OTF sbZmyGnSklY53 Oyc+SJBtgYezs3FlKqwdu 9kyw8qesCj4TvchKPGaia VrfVfyEVJ9u0WhMl4wXYE guXL9nPB3wD2f XcRdYfL7KBznU946VfTgg YZqYmrpB25iQ8TrlSY+PH BwUqj8BXYgqVvxEU9eY6G hZGRpbmctbGVm tEakBC2aMWVbbjlsOSMjh H8fHATtL4s5SnBbJgR6DZ hsS9NjMDVyyokhBr78wF5 ySqCeLpJ3IZcc B8ZwjeV4YPCqqFBkKJvpB TW2S73lk2R7XOFiMJWbBR H1nQE6gX8udTwuqyowgPO mdDsgdmVydGlj TBvnEEfzU525KUEpwBunA kNvZGluZyBEYXRlOiAgMD UvMjIvMjAyNDwvdGQ+PHR kUPQ8jBkbVUEi dIKnZLxtHq3zxJreeMofY A5mUYVagclpMHVzyW1iCU PrjGFkgTgzYW7bNWRbhzo ft008ZcRaFWT7 FMZshPQrC9LgwF5qZuDcR GCfAOBpC6QbnZGcRRxvZ2 22TSwiOaO7HAWgzjCeD5S sLWFsaWduOiB0 z5U1Ke0Ei7BbujgmO4Fch TCuDtWgAhnlZKk5X9XqNs wvdHI+EH71TXIgKJ17FFt 3DQF4qTpbZUlc QYIaJ4WgxF4wMtPzMSKfE GRkOyc+PHRhYmxlIHdpZH RoPScxMDAlJyBzdHlsZT0 nZd7kMZFtHFEj uXtdlDQhQqGhq0qyTNBxA VgnTX3tkDyzO0KegXL4CC Tug6m4Om58R81vZ2NzqUO +SFYjvCQ1sJZ9 dH8dXgFxYfC4EJxpK476H bMenKRaDdwqz0lkd3emrX z5QiE3JMMfilNhsIktBGB 5k3KcQx00N56k IHdpZHRoPSIxNSUiIHZhb Rrwob7abW5xZi8+PGNvbC R9sRB1cO2jRrCuAeL3QIf cX540EeKbkEYc Nqvza1ipy7fgaZc9YzDaC IJcwuIbsMzuWLJ2t0KrNq 95Z4MxuImnl1GxHqe2yw4 2eMLvp3K2iRD4 F4UwATVskfmzrBGbyXsvT P0tSYLmrtgiXEXdfR3sVR GfQ0t8LdVmMuB3ETtkD7H bbyS8LDZrcAJv RSFpgSGQbW4gvlevb7pjd snzTgCzBYSjFUb8SRa5TV WhmQxuBtGyWYA7QiS6WGU 5eLGvmY4udTvp zjonzV0qRcu+YPD4sYEfs MLXFQ9wUjruzSS+PHRkIH H4zSxvTHdhIUQvbE8vQTJ rN3d4BvWaCdQ8 IKldH8CfttP1SVQjaXEyF TFoaTXZvP6qfmvnh4yjup rmLlIsNCArTBn5XBc7LZW saWduOiBsZWZ0 SmI1BJD9vVVjhY6maXgtn vdfmP9vVfj+QmlydGggRG D3KMa7M1IjNxy8PQPhcEf yBS5doKRlWEvo Jk7ulJwjhUenOW0aVJDhq krzp273UxPwv3rtEQJenL HxGTogBNN5P42ci7X8VTS vNOJkMWE2oTY0 fH4zcCyzihsldETvkLgco vBuqUggQWbeQMviT158CR QdcDqrExBrMFm7Q0GgFrz 8ORPcnOqnQB6i wGVfZDlePk5teQuebRwpS E5mUYQlteacy154BgWqg1 wtDZWpzOZzQTnnCWR3C35 hs2B6HXRdLIVw XVA3tJI9qB6ynEmfenfgn GVmdDsgdmVydGljYWwtYW qvV200HVWcwRplCiLzsNw 4U6DkEnv0ONJa lDteAF9poVBoADlhCq5wx HmatDlgBT8pZRRpyvkkn1 31AyZan6azLYDluPNtZPf pQBI6V22nc6G5 UEGwGVWqJVB8bJT5cR4dy GlnbjogbGVmdDsgdmVydG ugSXvbXGluR676JIRdhTo nPlBhdGllbnQg NQezWOb1J1KlQhohdIR+P W19EYNsKE01fQYzfNDfr2 bjoLj9YiElPAKlBIM0xGk qVKyvv0KtYKMg P35gpRPrj2C3CCUuzRbdv XRmYsXwkBB1zX3eHRgoji apx6zudotaVfqrs2ebya6 4jQ22H35hTOhu ZHRoPSIzMCUiIHZhbGlnb i4rkG7oKz3+EXLthQC7mH D1tV7pLYKzNrN0TLvjN04 9InRvcCIvPjxj l2ssf0kkuRb1QsM9QQQku tNshVewZYS8r5XoDf08G7 9sIHdpZHRoPSIyMCUiIHZ noEllik2vxG9n Ii8+XEStsRK1hKL6nO1aZ eHjXpO3KPtvC001VoWnjZ LzVdmqD25xV6YueRR+PHR rAhj5KPJhvPhe RD4nxKDtWMlfMp7pZSQ8C uMmIeGvHHrpN4VzRWKyly ioagflqJK7QOGiYWJspQ6 1Qy6awGbdMOIv xLORvC1bbetek5tcihmsZ mNxDBKaGNf1USs9MDOmyF xfYsBiVHB9HjT2PNT1fJX fdZ3voEwwsjqp jQ3gN9IvRGUcvajjHh50n D8fLvMuNiU2MKhtOkz+V0 2RDdWtPOiQXEtDJQ1qYEs OAkWATDIQXX56 MI17fTQbp6U1nAR8W0LsC HZadstnvdbayVT8CHVvSJ JbvQ62tMXuWGtwZy2qw5Y 2a279HGCdAQHw kN85Kd8keFdaJAFyvDKDr V8lggzjh9snixvxWrSoFZ FvAEv6ZIw5PSHfiNolKmH jGFD9NgG9GSK2 cAQgxE4ksDhhjnuotV9xW yc+BXExQUDkQDa5BAavwS Q+UDIkZCC6pTlePWluAQC ogC1oPBOpW5k7 CeYrXeD6OBrnB1DoBNKyy svkQr12cL2eIrUzJeL5EU ylD8UqjuG2LEKbgVNrSEq nQLZ9I39zl2P1 LFJyJZDbLYU2aQM1aT8zc GlnbjogbGVmdDsgdmVydG qsYXkaBMtnE639UPUmrBc mRxO4DJflVWMd UH13SO80wVXsv7L6cLW1Y 9GjUWEhobxthgixtPB7GQ SqPWSweQ47vVKzGWgjWq3 xa0C0a037PVTu HHSsgN05Dr7adQdnWWGjh NEKjV8xhrwbq2ujjmllMm AvSBAeTEu0EUu2YPLeyGo uIfZoJPR1JdK7 SLM3hLKhlL0vtEkuqfhuk G9wOyc+CaZUAGsTJW29BY 61eNJpm3A8aJO7Y4RvTGI pbmctcmlnaHQ6 ROUyXXCflJ77pVCcGQaeJ a1rf7C3v651VBCcRZGcqC 19Zz7fkKugQSMjlTIXmR5 owjwrr9xlwxmg SiSpAGRtTYe4EZm0LMQmn CnuMxXeSFO4QfE5KMU0iE BttI7seEfvgbzdsG6rHsj +E3N2T7TsFifx dHI+AN20EAHeZD98qIJgn DYhl0zxjYf1TfNeZOIhWY C0nMkvEMkvm8GmDZNgN51 lvETls4F8HMYt lBloaEOqVnVuqWV3iC3oT Padadtfc5hrvtkcVncup9 sdpd06nD15Y47yMGjkEVK oPSIzMCUiIHZh jXoviz5yaG9hBa7+PGNvb QZ4qBT4zI9zIwUjQrZ5ES kdL519LdDnwVQvYtfew6j ot7ztbYh3LmJb XQRlknLgxMmaPDV2r9IhE f66R47xALlbADVgKISsBW KcJQKawKxcqo7ywJ7wNu8 +LZ2ni3dtdy84 eX21vTA+HDJeYLP6oGakD UfpTFTtxR1oYNudQlO0SB CjRaIfcN36oARgHZvwOw4 ycEfesUhaFY9t UCLxzpjmh362YxNfv0zjT QUweOVgIHfcQDE3E12vl5 W0OVMdEWMuREG7qHW2dA2 hbGlnbjogbGVm dDsgdmVydGljYWwtYWxpZ 436GBUzvIssDqFhiGBlG4 gtkvZBMG7sYkhuqOA+PHR iNSB1bOkbFRdj OJEesW7pIXNmH7m7BrAfB tD9JZjsK5QumoY5LXNsmD LrIPPsdRQWlH6kpaleu2g vcjogIzAwMDAw GDj8VBa2SYLvgUdrYdOnJ CU7RbB1GEF5rAZkvZ7wvT exnujtvF2fBgc+RklOOjw vdGQ+PHRkIHN0 jAerUKteCWRnbH6cYGUxE 8f4UpXdKyA6XMmsM1Zwhy X8ULMflZNlGYOeyQPHeC6 rrgkbq4fajyfv LzGyASGjZNa3QWm6OXOqv HgzAeTgXOK7ZdB9WEX4aF LelE2onVuzdljmyK3aMox +TVJOOjwvdGQ+ GWBuIML2uQvxGDgtOPEbx P7pTCSxI5x7NqQfYjU1QS enP6QlmlF1KBWmxIJeQYW suLFMrH0nocgs c0eklyacDzXqNSJrRMz0A Mx0MKUzwRcaVcUnWRS7Lr P4ABP2sZSxyK0csZuymkq sxZ3yTuf+UGF5 SZZ7FP55AU56G1EkSclyg GFibGU+PHRhYmxlIHdpZH RoPScxMDAlJyBzdHlsZT0 tSr5sITEyZCYu bGx (more content not included)... [facility] Hip Complete Left w/ Pelv son 11-09-2023 XR Hip Complete Left w/ Pelvis EXAM: XR Hip Complete Left w/ Pelvis HISTORY: Lt hip pain COMPARISON: None. FINDINGS/ IMPRESSION: Moderate degeneration Final Dictated by: Jennifer Bonds DO Dictated DT/TM: 11/09/23 4:00 Signed (Electronic Signature): Jennifer Bonds DO 11/09/23 5:03 pm Technologist: [facility] Coding Summaryon 10-20-2023 Coding Summary HTMLBase 64 ByougxxiXBh8iVh+PGhlY WQ+SM0SGIAdQ47caTEglN 4tZ4WSPQgMEyfkZASDEZq RCnYggzHmJK6woJNyRRFw IC8+TE7nFUTeFohmbNGeb 4Q9oFG0A06jws7vYNnblT A7SYLeZiKuwjbjg8ojtWx 6IDcuNmluOyBt MFNjrZ69DTV6eR03Hl22e TXqtLPio1eivKa2XdCvFE RoPQR0dNbnIByey7EsUSN xN03wkECjd3E7 AVVopYtshKBxEpAbeWW9t Y8qCZnooguak7aebkasXg j0iy98kITcr0G3wGE3U5A krgT6NNOkoRKi XtbaeJTUoE7hencol7xuz wgeNyGpVTOoQAk2NXg9BN PueTcmBiVgPL35HRE8OLY hcaQoW1YzRHJr xVaeXfQ8u2A0Ah0XU1FIO ameH6HTYDHUTVtygRV+PC 22jr48R5AfXgmmLgo0OHR qOYA3xAB3lN8z WUAgJPtvg6Y4eSG4K3Dfc kBzjk1ak1etPFTsYFavD9 4vkIPto5T3VPMnyBN5VGH pbKynZmVfpF51 Oyc+LIEonPjbt0WdTxyyf 0uvn5rwvLb3SnkrDULiov XqsTjiESN4z3RcKv2tCMG gyGK1rVS8kQ3v TgGtZpQ9SHkfT163DdMzt GXbAyjqW12hT3FpvTE+PH ReWyz3HMHxeKrzKJ4fY5C hZGRpbmctbGVm iDhkMP4lZPPfamhoJCTjd K8bRIXuV0p0DoMuUsF0LD xsE0McVJYgtinyOx41dZ3 cYnUbKlE2JJdm S5MfjsS0XDNnuMEyUEfvP ET0K59xn6J5HKUgNTYoSC U6aFT6cN9bqBpynddppKO mdDsgdmVydGlj ALrbEEotP405QUBkwZxyC kNvZGluZyBEYXRlOiAgMD QvMzAvMjAyNDwvdGQ+PHR yEFK6uBnyVBAw yALnNZngDd6uuVutsByoB D2lGEJneeenJMPraV9lII ErpKMfsOnuXX0zNJGqafq uo221IkWoDZM4 YOOifYBzX4OkwY2nDoMzL RIzVFUoU6HpzHZfGFzfZ7 81INnfGhF5RNTtpnYeC5K sLWFsaWduOiB0 g7I2Iy0Vq1EocslxD2Tqr RLqBuAcJkcwTMq0K5ZkZm wvdHI+VV24UHYeHS49QJu 0WRK9hPgtXAvo BXDjM8LolI5rXoZwFJRcO GRkOyc+PHRhYmxlIHdpZH RoPScxMDAlJyBzdHlsZT0 jDf9tLHJjSNJl cHpjwXVqTuHuw2arFZBhN CgaAY5wlHjmM5TjoNH0VR Kne7w3Gl21K05dM9YpoGP +YFEksMC0cGM5 sK6vEbKqVaA3CYrjV669R wIkeHVxHawzo8ktr1nviR p7SdI7IYOepcXjvRnoZIU 6u8LwOy73L75l IHdpZHRoPSIxNSUiIHZhb Mxzvf8cjJ0qGj9+PGNvbC S2qPX7qG3bFnVyFrU9GBd pL699NbCyvAAq Jrjhn5uxd6csvOl2TjXvN JTbziNtrDbwBZS8l8UwTr 67Y0SeiLzlw6VfJcx3mh0 6jMYrn0O7tDZ4 W7FeZUJpdsqolATjuJvqX W9zGARxjwdbCHPntK6wOW UoV8o8RtRyMqL9MCyvM0T efqZ6NNZwbYQz NXDvdDCYpG3glccsk5mzr hzgPaTaQVDpUHr5WRr0HN UhqSzhVpUiPPR8QqI5JJS 5sFMkfK7mvLbl bpwwdF9xJmh+YBK5qSZpq UIUAE1yJifgyVC+PHRkIH C9pRwrMRizCSZfcO8bYVP aG7q1NxCgHoE4 NMqiM1OmlyF2BTUrhRXuH XRupFQIgU5rgpefb0urrp zqLuPkNBYzDXp7BSi2HRQ saWduOiBsZWZ0 NeR0DOD4sRJurB2bqBvad xyhjY3kGpe+QmlydGggRG M1TZx3D5HqBma7NFSylTa uEU5noXPvPPmw On8sqAghbTgmKB9tCWTcj fgvj997IkMxp4yjAZWmpF QcGAntREY7X87tr6P9MRG kVGOrYRN2bEI1 sM5kqBntsnnxpXFyxXflu bUwyAkzWYhfRUlbV240CA XzuEyrYlEbBAk0F6NoTxz 1LLHttUivQJ1a kFPlBRpnSp5mhUslnPtiX F9fKKHknsflf894VhUtm8 rhKUFmzPLfTEneHAG7S59 su2D7HODvAJMg XIC4bJZ2bW3wuCcwwbcsb GVmdDsgdmVydGljYWwtYW omJ245ZQIwgFnrHzPtzCa 3D7WgJnk4AAWi lGmeQZ7geVZrKBshRd1eo UwikKevSX6kGWGzuntim3 62StYsd7abIWDqxGDrVQl mJLV1U38el1G0 CEHjXIRmXZS4rPH2cL8he GlnbjogbGVmdDsgdmVydG pbFDxbWSfpH487IFReiPg nPlBhdGllbnQg JYkvAOq4O4NdBhmbfKN+P P36GPGaLK58yLTkbFLfx2 gpqMh2YhSzBPCtOSC8oEd jOKxsu6ShFDZs B70xeLJyg7H4LNJxsZktg VQvYgBjiMO9wO5bMRjngq wyd8jvrpzrAirel0kaaf0 6qY69G20kNQao ZHRoPSIzMCUiIHZhbGlnb x1poR6pSv9+QAJpmWM4sN F0mE4eGBNwGkA7EWtoJ91 9InRvcCIvPjxj n5oqe4qrnZw9OoH4OBEfh oGjdEwgEAD2j4GsOa89F5 9sIHdpZHRoPSIyMCUiIHZ igXrhij6jtB4o Ii8+VIKjfAA6fTS0zY8mI sIzXdG7ZFbcS617VdXamB ZcOwrcB47cK4UcsOI+PHR qRgy5NAPmtKuw TR0zrPEoJLmrAa0sIJU9G nWfQpUzBGcxJ9BwBDOtls saofgwtWL6HICxYDCwwQ1 1Im6nqMpgEAZc cYNEzB4aknlah8ekisjbF pJfAHYgEJd3SWy9MYCvxH vgQhXoAGH7ZvV2GKW7lKU zpB9fmRxazkft pJ5bH7SnVFKxqiqkLk73h F3wOlJxWvP9QRygMbp+V0 3XWiBlPLdSWXyRQI9cYOp OKbAPFDEFVO74 CC96eRHjq0P4iNF1G9PtL KIrxfowucxmhJP5LQRhOD UqdG78hNTrKHjmSg3lz8T 0x171BSXwTRRq tX58St7tkCztUZJekLFQu U2mtptgx4efzeohOuYvIB GlPYp2EWh3LXExfNghPmT sTSJ6CnH9XHS2 uCNcuP5ybGeimogfcD8wX yc+OMSnBQOmCLa6DNgbsZ Q+WCPyUQF8sBnhLUtpPOF joI4sKZLhQ9r0 NlRrYhG4XWsoR9NjTZSxk kosNb58jD3dNiWqYbG3TR msV7JbwlS7RXTjuFPsUSg tZAF5M40yv9E9 VBDoQMZhCHH6oHB1aQ9vl GlnbjogbGVmdDsgdmVydG mwMOziUFiiR294LOHzmLh zRxV2TPacOHBv OK78PE36iFPer2U1bFL8X 7OyFMGjfaodlctmzLV9SG ShNSWboC00pNJoRIqeJx9 ia8V0o647IOFn YVHlwP52Ab6xaVlkTWHst GHIaU2detqck5skcznzAb CgLZKfUQj9LHx0BWHtwHk xTjNiWSD2YkU6 PKL8vAKahN8cqAqmfbyps G9wOyc+DqDQZLeXIL05XK 69wEBii1I6tXP1Y2ZvCVZ pbmctcmlnaHQ6 FPGzMYTjsT96lKAoDFeaR l7lx6P9h321UXKeNNMfgH 48Hx5joTwgDXWngXTOkQ2 wozair5flradi CpNzWSJlVUv9IKv4TVEmr UhcWtMrKND1NlW1RZI8nE VznX2itQcptjqdgF7eHzl +Z9F4R4IjVdue dHI+WW50WROrST47wBXod YKpf0gpqIw7PlYtNLQpAN D0dTuvTCijk4YiDBHrE77 ukCWrx3V1WFVl bNmtcYHtJuXfiYF8nH1tD Vwweffwv9ypuvmdAevau1 npny79nR87Y85yJSzmOJO oPSIzMCUiIHZh dWmyna9dvJ8nCe0+PGNvb BP5dRS8nI7vWqWqIkX0WI mnB542VbTheRWcHnuoi7s fu1ycgMv3BrOw CYNpxmEtxSzfYUF3s4HcN d35G83oSJtiKAYoQBDuKS GaDONruJpzqp6ygR1iIt9 +IF6vv5bfwa88 nQ14nUR+VCVhDWQ0bBwjU YxgQKCclF6qEYpxCvC9RG UfFrIuxO08xVWlOLjmAf9 duCjfcBkhJD4y EKYwpwexu069JtRws7eaN BEgfGArVEyfJIV3E97rx1 G5TLIkVXFkAEU1pLS1eP8 hbGlnbjogbGVm dDsgdmVydGljYWwtYWxpZ 419FKIjcDotVrBtqTDmR7 kigeZKDU3kOervoTF+PHR pIYR1wUesTChw VIEwcP0qPDVrA2j7IeAdP iA3EWbdH6YywyR4AXMdiF IhVVBlfTYGfH4ekponw4r vcjogIzAwMDAw HLm7SAw1KVZqhTyzYfJfC VY7ImL7JXF5dIRckY0xiW eipszvqJ9aHhv+RklOOjw vdGQ+PHRkIHN0 yZhfJHwrBRFazM9oEIVeO 7t9AcIxPvU6QFejK8Gtgl A8JOEzlPTnMTIfgSYLrE7 llrfjt8gqaqhp MrPiCQKqFPd2TQo3TZRen WolYoGyCIT8CqD0QCG9oJ PicX6hvZcfjyjfaC6iHeq +TVJOOjwvdGQ+ JFMqKPY6hPsnWNzlYDNyc C2lNRJgM8w7QsBkFxG4SU idM7WtszF5YOCbcTRkPUL clARWiD6wmifu n1olbhzuUaWcEPRoGFp6G Lo5QGDupMxrRlXqHTH7Zy A7LYG1kBAtfZ3koMtrcqr xrV0hDxz+UGF5 XHI3UI27VX27K5SkUlteb GFibGU+PHRhYmxlIHdpZH RoPScxMDAlJyBzdHlsZT0 pOp5eUAGtKCZf bGx (more content not included)... [facility] Office/Clinic Noteon 024 Office/Clinic Note Patient: TERE RADER Age: 68 years Sex: FEMALE : 1955 Associated Diagnoses: Contracture, left hand; Hemiplegia following cerebrovascular accident; Left leg weakness; Depression; Lumbar spondylosis Author: Dale Flores MD A History of Present Illness 68-year-old female with previous history of hemorrhagic CVA which is left her with left-sided upper and lower extremity weakness. In the past she has been able to ambulate using a walker and help transfer but more recently she has deconditioned. She is also starting to notice worsening contracture of her left hand. She does not wear a brace on her hand. She does wear an AFO on her left ankle. She has undergone physical therapy and Occupational Therapy in the past it has been a year since she has had any. She also has history of depression and because of her deconditioning it has exacerbated. It causes a lot of stress between her and her as they argue what she can and cannot do. Also because of chronic back issues she is on tramadol as needed. She will take it at night occasionally. Depending on how her back feels sometimes she will sleep in bed other times she will sleep in a recliner. Because of her decreased mobility she does require assistance with transfer from her and at nighttime when she has to go to the bathroom it can take quite a bit of time to get her to the bathroom and she is frequently incontinent. They do not have a bedside commode. Overall the last couple months she has deconditioned. Review of Systems Constitutional: Weakness. Respiratory: Negative. Cardiovascular: Negative. Gastrointestinal: Negative. Genitourinary: Negative except as documented in history of present illness. Musculoskeletal: Negative except as documented in history of present illness. Neurologic: Negative except as documented in history of present illness. Health Status Allergies: Allergic Reactions (Selected) No known allergies , Allergies (1) Active Severity Reaction No known allergies None Documented Current medications: (Selected) Prescriptions Prescribed buPROPion 150 mg/12 hours (SR) oral tablet, extended release: 150 mg = 1 tab(s), Oral, BID, 180 tab(s), 3 Refill(s) docusate sodium 100 mg oral capsule: 1 cap(s), PO, BID, PRN: if needed for constipation, 60 cap(s), 5 Refill(s) ibuprofen 800 mg oral tablet: 800 mg = 1 tab(s), PO, q8hr, for 30 day(s), 90 tab(s), 1 Refill(s) losartan 50 mg oral tablet: See Instructions, take 1 tablet by mouth once daily, 180 tab(s), 0 Refill(s) pravastatin 40 mg oral tablet: See Instructions, take 1 tablet by mouth at bedtime, 90 tab(s), 3 Refill(s) solifenacin 10 mg oral tablet: 10 mg = 1 tab(s), PO, Daily, 90 tab(s), 3 Refill(s) traMADol 50 mg oral tablet: 50 mg = 1 tab(s), PO, q4hr, PRN: as needed for pain, 60 tab(s), 0 Refill(s) venlafaxine 150 mg oral capsule, extended release: 1 cap(s), PO, BID, 180 cap(s), 3 Refill(s) Documented Medications Documented Golo with meals: 1 tab(s), Oral, TID, 0 Refill(s) acetaminophen 650 mg oral tablet, extended release: 650 mg = 1 tab(s), PO, Daily, PRN: Pain - Moderate, 0 Refill(s) , Home Medications (10) Active acetaminophen 650 mg oral tablet, extended release 650 mg = 1 tab(s), PRN, PO, Daily buPROPion 150 mg/12 hours (SR) oral tablet, extended release 150 mg = 1 tab(s), Oral, BID docusate sodium 100 mg oral capsule 1 cap(s), PRN, PO, BID Golo with meals 1 tab(s), Oral, TID ibuprofen 800 mg oral tablet 800 mg = 1 tab(s), PO, q8hr losartan 50 mg oral tablet See Instructions pravastatin 40 mg oral tablet See Instructions solifenacin 10 mg oral tablet 10 mg = 1 tab(s), PO, Daily traMADol 50 mg oral tablet 50 mg = 1 tab(s), PRN, PO, q4hr venlafaxine 150 mg oral capsule, extended release 1 cap(s), PO, BID Problem list: Active Problems (16) Chronic low back pain Depression Hemiplegia following cerebrovascular accident Hemorrhagic cerebrovascular accident (CVA) History of stroke with residual deficit Hyperlipidemia Hypertension Lumbar degenerative disc disease Lumbar spondylosis Muscle atrophy Muscular deconditioning Obesity Somatic dysfunction of lower extremities Somatic dysfunction of lumbar region Somatic dysfunction of pelvic region Spasm of lumbar paraspinous muscle Physical Examination Vital Signs 10/19/2023 13:54 EDT Peripheral Pulse Rate 88 bpm Systolic Blood Pressure 110 mmHg Diastolic Blood Pressure 80 mmHg BP Site Left arm SpO2 96 % Measurements from flowsheet : Measurements 10/19/2023 13:54 EDT Height 165.1 cm Height/Length Measured (inches) 65 in Weight 127.69 kg Weight Measured (lbs) 281.508 lb Weight Dosing 127.690 kg Body Mass Index 46.84 kg/m2 [place] Body Weight Calculated 57 kg BSA Measured 2.42 m2 General: Alert and oriented, No acute distress. Neck: No jugular venous distention, No lymphadenopathy, No thyromegaly. Respiratory: Lungs are clear to ausculta (more content not included)... Normal [facility] Progress Note - Provideron 0 09-11-2023 Progress Note - Provider [id number]. [email or web address] Coding Summaryon 09-10-2023 Coding Summary HTMLBase 64 NfummiomINr2zFc+PGhlY WQ+FU7GRWYvN85koIIozA 6eY3SYNPnCBjmrTBORMQw ZEoXjrwYcQL0flKYtIJAg IC8+AL6bTTOpMsxmtTWkl 0Z8rOX8K53fqq5cDVtnsL Z3WXZyEeVncxgnt3cnrMy 6IDcuNmluOyBt YMLjmT83MYR6nC61Qq55g JVulNWri7elrOy7PpRxHU DtLOL2yTlvGMtju3FrJXG sQ77saCLhr6R0 AOTwdVvgzZWnHkBjbRC1c I6rMNxnqtegr2qoniiuMk g0ya72hTHvg7N2aJJ7C9D zadJ9KBBkzRDe XieqfNVCxP8bipduo8fmx nwzVcTmDBFbIKc8EOz9IR JcoYyjBjDnYG47LEA3TPP zivYyA8BwDJXx aKuuHlB1b5P7Fc7KV2NID jcsH8BTAEIYPNkowMP+PC 65di77W6GoBfojRhb4IKH jVPQ9xLT1rQ5r UAGfLLvla9B4uOB2F1Fbp dInpt3vr7sbABPtKZijT8 0ucOCxd1U4EBSlaVW0ZFY jqRzkRvLwcV62 Oyc+SKAprSmwy1ZkJqlzb 7iqf6kzbDm3MkikUJYjnp JoyHfvPHC7f4EbOr5pIYE fuVO1rAE9lO7o RcCzDmA3NKxjY007ZdMwp IEnRvbbK78zG5WmjXE+PH HgXfm6STVhbIhvIA5jO3I hZGRpbmctbGVm jDjiMS8hNHBfiymqLOLqp J8yMKPjY3x1CcOzNsM3HJ epW7SqSAVypdvhTy98oE6 kMpOxNwP7EKsf M2WgzdC8VQQguZNmCDqrU IM0T47qf3Y5NAMrHCXhZW X8eST7sK8dfAjefqbubTD mdDsgdmVydGlj TQtnVHqmX147BQMhoHdqL kNvZGluZyBEYXRlOiAgMD MvMjEvMjAyNDwvdGQ+PHR nUPD8bZtgZFEy kFEaBRwzLb0umYojtTamW X9aCFJjwgieFEIlpJ6hZV RauNTaqDflRT2eABFoniz eg338XuUxOOE1 NUChgQByT7SsiI9yTbIuL WPvPYOyK9EktSKjKWpkU1 73VYqjKrD8ZYLgjoNcR8B sLWFsaWduOiB0 i0W5Cf8Wc9VicfdvI1Ork NAkKoQaGxqxDJw3G3TaAo wvdHI+UP06PLQlGR39SJj 9VAV1lXzeIKhc ULOyT4RtrU7oNcVuOODeQ GRkOyc+PHRhYmxlIHdpZH RoPScxMDAlJyBzdHlsZT0 aRg7zNHOpNPAi fIdvcAChYcCbk2bxNNOnR XcjFT5vvZsxU2NhwYX2AW Gid3j6Tu90B80zV0RkeXC +ZCTimZI9lCB4 oA4qOiHuDcR8LUehO649P lSmbKIhFeqhn5sff3aauM l0IvW4SZYuphIdcSppIBG 1h4BlFa61Z96m IHdpZHRoPSIxNSUiIHZhb Tyaym4rmW8rGr0+PGNvbC R6hAG1rA4mIfQhOnA0OTw nO165ZqBshGSj Lpqmh1fwv4iwaGk0MyClD HJfhuDwhQinQPS4x1QhCw 98B1EtsDvfw7MlGvn8uc3 0gIJrv3Q6qJV3 J2XtBABwdksraIObxIvvT K4qVQWyagwuPZMmhD7cXA FyM7f4QxQoXuG0HXsbB4E chrW2QLAutWBt GEObwBAAfS3alvqco3zeq kchLnWiCPSwUKr2HNq0AK OpeGeeAlPgKTU5RfP4VFP 3cIVynR3uxYsr rpuyqF9vIxf+DOJ0dWBtn QSUGR7bJgcwvJE+PHRkIH K8kLvnSWmoMXAvqN5zGKT tH1r1VxDmMnJ6 FZscQ0PlttE8UDPzlHVmO BHjnEGVeR0mnodhq9ahoq irNkZqMNWiAWr7TYe1GCP saWduOiBsZWZ0 BoL7ZCX5wNEprC3jdZmtl rzorZ2nQov+QmlydGggRG V5GEi0H9QuOxz2OSZuwWe qXH3mrVLvRGos Wx5kqGvstGyxVH0uYCWoj fgyb016TcLef4bsDHNgoQ TqNPboXLI9P70mo4S8MWG sGNJbSXP9xQI1 uL2yjPgjnziwtVRoaCybj bNxrBqrSXdaSOuuZ989TX JnmJvzJsSqVRo1Q7GeTwt 4LWKhhUbqSA0g lWJrQFurFt0xoRyqkXhkB U8cYWPybkszf439QkRzm1 dzHAXfqHYhORziCBJ2K98 mm2P7FOBtZJSa PXQ9sNB5oT7xkUdcqywgg GVmdDsgdmVydGljYWwtYW khV924QVVbyZmaKjDmmCm 1R8RmHrk1CITw eCpaOP7lpOMjIRxcZw2nh ImxcUgcDS6fJGPxdfkcz4 00DkGyz1fiAIEwkIVvCDs yIOQ3F70dr6E7 OZOhNZSeWSQ2cYW5vX5me GlnbjogbGVmdDsgdmVydG jfUKjdISejV872URWmpUj nPlBhdGllbnQg WNwnKYs4W1IhQwnohRV+P F69YSHvXE83kIIvdOPqr3 tizNo8FfNuPEKlTUH0eZr mSUikg9IrXICl V92maQVot9E4LLNuiElmq OXaIiMiiIV6wD1uQAcqlp qpy2esyptdIkkbk8nruj2 6dT67A88mYVoa ZHRoPSIzMCUiIHZhbGlnb w9seM9aJi3+HBLunUE3xP R0cG7jXYGeEyD4ACgkT42 9InRvcCIvPjxj b2fqu9dqqYg2GtH1IUZck pAdiAraUAX1x5BbRi51I8 9sIHdpZHRoPSIyMCUiIHZ bxQapgo6hpO4s Ii8+EXFjoSP7oJC1nK6zS gTlZhN3LHycM135XdMfqP TnGmgrA55uG0MaoEJ+PHR vAxy6ZGLqaNqk AP0rzOCwSWmpJs7zWRY3B jLnDwRyPYezW8LeICTety imyhtdyME3BIJtTWLetC0 3Xu2rpGczMDOl cKAQkQ7pvotsw5uklrxtT iBkKMSlJAj3QBg4TCZiqC ptBmDbLSH3MzV3HXU1qMU quP4mlFlragdx yE6uP9RzQOTvblcvEy16z F1tBfMqMwD7YRqmLje+V0 1TPxIjTDaZSWbPRG1zLNa ZLfCADMHFKB70 CR85hRRzc4E6eHV8T4ThK VZeitfxsdlddBS7YCQrDM LooF84jUSeFEozYz5at8M 7t786JAYxNDWo nM09Mz5obQerPVXcjXGIs G4zpnihz3hmmxvqKfTqEC BsWEm2SXw0TJHhjQdhSoZ tUMM2XdT2QCZ1 kFFqiI9ryCswqewrpF7uF yc+YUYbABBzMOq5TIdsyI Q+VBMxBXR9aTizVTvuOOF etE7vVUQtB1d1 LxYaHlR0NTsoT4LuPVZys dquTf95nM9yVpEyAqA0ZE qiN6CwexN9TPMftJBjFMg lFGJ1U35hw6D4 HERlCHUtTPP8nRR2mO8qr GlnbjogbGVmdDsgdmVydG vyOZnhISpgY855VXYhjFx nFdP8YRloSBDd GT36BG73xPVut6W5zFG3C 8MoPENjavvzglsnwGY3OB ZkCYMcwJ88hORvEWnpZg8 xv2E2s337JFVl INLtpK53Ge5mzSubGHRbk KQGdH7horzzu0dkgpdiBa BbIPXhDEl8FMc3LHWddCt mLnCfJAO7TaG0 LIH8rBCxoU4lsBnpvnxpu G9wOyc+AsVXPOoVZO78OK 02vOJqz8E0iZO7P4QnUHQ pbmctcmlnaHQ6 TZScGBIagB99lRNjRIhkH t8ie3F1z194TYVsAWGbyY 58Gy5fjSqqJREwzIKUrE4 hcnsse4cgmyis AeYaVPViJGz0YIv8ZXAqr WdvYzCoFEF9RvQ7JBA0nP RicQ7muWkpnxlogV0mNzs +A7C9H6NaPnkz dHI+BG89KNWoUK05rNRog XTxq5dtnVw0UbFzVIDpTN J8zDorLKzng9WtBSUuM13 vsFFwp0K8GWXm oMazpDJqFiHmgWY8eH9uN Yukbiuur7ycwbqgHvprx9 olce99iM38F16vXPgkTCQ oPSIzMCUiIHZh wAnwpa2qnQ3qIk2+PGNvb MH7cJY0oJ2qCoXzIfD2AT baI450UsZvxUFoTmjiq0d gu6ktnNe1FrDo MNMmnpLtmDdwTUU8o5AtI w46U27fAAlqXKGtYFLoLN VbGDZjpHztrp0yvO2gOz2 +TK4er8rnxs42 jH02aTX+EZBtKDH9bKuwG JjaPZWfdA5cMAlkJsD8NM UsQdMshS20wRSwXMfuKh6 agMtgwJdiMG7m OYFljenrm759SiZpe4ymF PWriGPiTWgaMFE0C41by1 Q3STBnVONzVSQ2oZW0gG9 hbGlnbjogbGVm dDsgdmVydGljYWwtYWxpZ 476OKJerSinDvSfnPGwQ4 yqdmXBFL0vHgfcfGQ+PHR vLBN9tJwvFXiu AIKnzM1gZYIfI4l2DjRlC vX7UCkzA0RdwtD9VETwdF VxMMFvpGUMmV7bdeyim2t vcjogIzAwMDAw MGz7GDy7BXVaiWutMmGeU WE8EfW5YNT1pQEhwF4snR dgbqfgfF3uNcb+RklOOjw vdGQ+PHRkIHN0 aLchAXvaRIYjpQ2kLJDfE 3x3CcFaXlD1WOgtF7Zqnb V3IAPygWGbOILmxMYGdG6 fnyxvi6tkevce XmXwNTJpGLq7YXg1WBBfh NdxXwUwOUB9YlN6OSQ1uP DulF1apIdxlgmkuD7gRnq +TVJOOjwvdGQ+ OQHnIRC8dEuyHHanUQWtb E9rPMMzG2o3YsTdSiJ0MB nmA0JhxhG7EYTurBHkPAW iuABQpW3ricex v8aomkjrUuFnKSQlFGf2G Un0TDZetIcwYcCdGMR7Ov J9ONI4vJQuqB9mpBgearb ofY3sGrt+UGF5 GDS8MP88ZO15Y3SpGulih GFibGU+PHRhYmxlIHdpZH RoPScxMDAlJyBzdHlsZT0 oKg7lBKLlTYPz bGx (more content not included)... [facility] Coding Summaryon 08-24-2023 Coding Summary HTMLBase 64 AuzivljjWVd9mTr+PGhlY WQ+XL2XJMXsW77rqNYatZ 9xP9COAKcUQqwlLSMDAAt DXtArqxCkWB5rsQJfPMJc IC8+TW7ySKDwSymkyDThx 5K1tKB1A47cwo9lVFqgzH C8TBLvHfOinmdyq3esbFh 6IDcuNmluOyBt WWJidF23IHN6rN93My78u SXcnMPmn6nqvEa4PuStIO FnNXF6hLfvVYktx6HmVFJ iS35rnMChi5M1 TXKdmIythXGcKgRmgMK8d D5gNNhcgfpcp0daosfiEz f7ri30bYUio7V4yKM7E8Y ofiJ7OKBueOEf KspavJWQeO6dfhnmt9sin kueKoAeKRKtAIa1AFt1ZH YcjByfLuFzEM88UNS2DNB rioIjB4EbAVIj gUlmObK6h8G5Ov7ZQ0PZZ preO8QQALPDDAhjuGM+PC 00uz35B8JhTltzJzr8OGY bQXB2zKM8dM5r SUMbPDyda0J2pZF0R4Drc lAgrt2ss0ndLSKgRUekO5 1xhPUvt7O3LSLjaBL8EBW lgIzdVvFuqH17 Oyc+OSKqxCoqc6QySjaql 7xxn7gezKp4EproLWXvty YqgUhcFMO1z0XtSm7lBWP bgQS4wCQ4gB5k ClIsNkT5ZBjmH823AoZtu OLlFebtA61cD8ObpAN+PH DoStl9MKDqsRnlBP6kD7K hZGRpbmctbGVm eMrcZV8kRYHareyjSIEkd J2kVTSzC4l7OxUfYqJ8KU grK3YbFQDmhjayIu58oM0 pIdOoMvR5LEtv W9GnlbN3GOChcHLwXEezH PC6X57sz0T1REBfXDUoRU S7cBX1nD6iqRawkzhnvPZ mdDsgdmVydGlj PMrwVVzhI168OOLgeVsmQ kNvZGluZyBEYXRlOiAgMD MvMDQvMjAyNDwvdGQ+PHR eFZM0qEyvMWEc yXJhTDvtIo1eaMlblNupI Q7gEWFblmznSRArnN1qRE HfwJNbrTqbBA7mXZBytfm xp795ViGaJIF0 FIWoxIIcM7YzdF2gPyJnN FWkCPIyW4CqvEAzPYcoI3 72FAvoOeI7KYZwsvLcP9M sLWFsaWduOiB0 e9P0Uz8Rr5KypcufP8Kbg SJiHiYtCejbECf6G8XnDr wvdHI+AH19ZVVeLL97YGe 8GZX4kFxgHFmq NOQnP7YhsW2aOmDtZVObB GRkOyc+PHRhYmxlIHdpZH RoPScxMDAlJyBzdHlsZT0 iZk6fYKYoHGJu tXmguJBhGuGhe8acZVCsT EodWY7juOcnT4RotZR6UL Psf2u0Rd68W42xR1VdzWA +XTBdqCC9mKA8 uS6eUkNfGfB3EPsqB720D iKmmNUrQdpdx7ezk5cehD z4YgD2NAVjsdLdlMfpQCD 1t0DjQt48K94n IHdpZHRoPSIxNSUiIHZhb Gvxdx6miD7hQb5+PGNvbC L4rXC4pG7jVuHeOvY4CRu aA146WeDuwUKx Waswp8fxq4zajEj9HoYsU QIebbFwqHxjOZR3u5ExMo 87G4PnxAezm8IcQlk5yv9 6fTEhv7W1dCN5 B3KuPMDoczaxkRUfnZfaY R6zLLVfkyjdMKKvkV5yYD OkQ2z5OyCbWyI8MJqtE6U nduB4FTMiiULs FABauFEOzS2dqjzeg6rmk rmfXxCrKWIzXVv1SEd7QO WovJfuOjUzCNJ2VeL8URI 9kDFlpO7niRfv nhlfzT3bNhj+MTT6vIDgr BTRVT0lRfmqvXP+PHRkIH V8wUvnSRspTRUixJ8gVOC dL5u7PaWgCqN2 GSotO7FbbcS6AIKhwJEtN EPpuAAJdE4ialttk2xdhs ctYjWdJGIjSOo9QUc2OVP saWduOiBsZWZ0 YkG6IFA9eFYgvY7fxPptw ttszK1oXrl+QmlydGggRG R8OXf5K8FoEjd9TRJagZp xSP7uvNLsZMcn Ka4feJzbzLjdOG2yWNDld gwii927JqMpq5mgBOStiX CrLOljCWK0L42ba0K6YXO nJUDvALP9rRQ1 uD0fqLzanmwpnNStyXshi bWrcMqcGUpzVDmxS117CT CgsPcrWcZnJOf0Z1LeSwb 3YWDryXykIF8d nJXsWEplHq3kqKedfFvuX W0rNOWmaqrms909GaGri0 iuUDFpkMBaQTepLTF6J39 bx8C2GJShRSQn XWD4wZD8dU2snVkavsewd GVmdDsgdmVydGljYWwtYW qgH244EOYqtRgxTaUcaKx 9B5NjWrt3DRJe sRrdAF4aiRYkYLhiCg7ja FztpTwrIF9cOBCnervoq0 67EvJkv8ckAWVshAEoVIe nNWQ9V06gr3W3 LYExJYIrIMD1dLO1bD5lt GlnbjogbGVmdDsgdmVydG xuCKdgEHmnA355ZUTugCi nPlBhdGllbnQg ESpgJUs5H6YiHzqspGK+P X62VNGwNM46uQFulBVkt5 ivzGz4ApCvFAMqZKV4hOr pCTasz6ElDOGk Y08goCOth1H9NJZrwSfxw FShEdAmaDE7bW8yZNvscx hvs0eheatxZcldh0abat6 6rH73Z04gWMje ZHRoPSIzMCUiIHZhbGlnb o0hvL8iJt6+VOApcBI0iQ G2sZ4gOEKgZsV0DNovX36 9InRvcCIvPjxj o7ybi6jtbGa2KfX2BORdw oIlsKcvDWK1h9HaKo54U4 9sIHdpZHRoPSIyMCUiIHZ idLrlch5rpZ9l Ii8+VUInyEG2aMG0uY6xX aIyQpL9TIzxR126LyBhuI OvEdikE06cR4CoqIZ+PHR sPkc9HWDaeXpz DA7ytXReWYnwXh1oDSA5B ySbOkZeVGhyS3RnCSWgvd qetkqidUJ5AHDuFUXfdS3 1Jf6vaObvYLIv lDZQdL2haeybr5naostqC mUmRAYpFIb4XQb0QOLtqH pyRxKdACF9WjO7VMM6gXM ofV3gjHeutxrt kB1pF8MkBYShtmssLq89n E1hCwBcUrU4NUxdYgc+V0 0HWzMuDJhDYJdHAB6ePAl UUuCJRQQWTB07 DD89iSSer8Y7bVI9L4GgS XOyrcwqhioqwGC6AYSdMJ PbcG67yTSuSYdsZb9ro7K 3k192PTCgKIEm pR60Fl0iiSykILEotXXOx W5rofdtt2myhhnmDnMnYF DsXIe2PSl0POPzzWigGeB aSGT0HeW2NJX1 mSLpqF1lpBalceicvS8cU yc+IPRjFVOwRUh5QZfgxL Q+DDAeFKR8dKptCLomRRI nbB2lFZJdN9n7 IlGmJpI2YVsfT1IyGXKdj yiaZu39uC9aZvEtVlG4DF kwM6JyimK1GZFlyMEkXRb kQRF6K92gr7F7 HJTaCRIfXML0vGQ7kN7mt GlnbjogbGVmdDsgdmVydG nqTWfjPRleY619VQSgbGh eEjS9OVeaVTFm PK35TB10hQTra1B4iHC1Z 2YtBFBujtohoenmmAA9CP WcUKChcM02aBHnIZdzTf6 uf5Z1d413VHPn RMLugC01Nh2evRdiQQEeb QZRfM0rztqof6gjbicjTj NiFPZoNXo4YQo5WXKkpJb xYmHqNQZ8RfV9 BHJ0bJBntC5ceZhrcgmph G9wOyc+QgVSPRaPFX84BO 69uTDul7L9jZR3H5PhSUE pbmctcmlnaHQ6 GGHmUUMojK78aYIwLGigG g1fk3I4w767HXKlPKBjjG 65Gx3veSyrGVRvqKUBmP1 cjxjwc1rcmbhm MkWpVWBvNUb8ASd2RKHfe JhhXwOhRYW4YsA3DVT5wC TrzI7myJhjhqqpmL9tXfu +AFM5FOQ9odam iiv0J7FpEningVX+PC90Y GTbUZ06uAVutVSfl9wqcA p0OcOxOHEeBBH3aYueCOo cb6OpGITfF36a lIAgf0N0ITUbuRifiYYyF wLsfXX9fS1aZOllifatc7 hjyhbzSjzeb0fkib42nU9 6C57zRQanUEVq WCPdNCOgNERhyYmmpo4qm G9wIi8+PKDxwOC5sBV0mP 0eOmEsAoK6RHouI343YzP yrBKyWgphd6pi c4triUp9SeVbZQTtjrEhr LwtVFZ8g4EwWm97B76yNM dpZHRoPSIyMCUiIHZhbGl iqs3yxZ9uDy5+ GW5qa1nxmp21mF55sIM+P WXyZTZ1rMuaQHqtKSJpgI 3vZWqvLlB4UWUcJqDwvZ4 9wTGoPOwkPk5i eQudcFeqUC3zQCNaredgp 279YcYlb0emLRYwuUYxCH zfXUO0D57rj8H7ISJyAWH wQVI5vJV8yA9k bGlnbjogbGVmdDsgdmVyd UhdDJfoZMznY151FCZgdN gpSzTwdEMmO6oxijQEVI3 lOjwvdGQ+PHRk FAC0xMmdJUijMQHxzX0zV JLaN8n0VfFuRrU8ISdoE3 BwrdO7LUXuiVKgLWQjyYU QpD1uqvpvg1qe akveMnSnTLOdRWe6IKk5M FQnuGpmVeMfYXZ1SaR8PI R2xZCosB2boVuffmjzzW1 wOyc+RklOOjwv dGQ+OYMnMGZ4mEpvTEhmI UFeeI2jOYGqD4s6MuMgGc P2YYmpI1XwdlZ8WCZydHY uIBWtpPZRoL9f crsvx4extdgtUnXqDZGrM Mc4BTw0RUBvpCccDcPjJL M5TnU3DRS8fXUquI0eoKr pvioytZ4kNoq+ TVJOOjwvdGQ+RBIhOZH7k UqxTHnySUKybQ8lKQUuV9 u2CfSnPjC5WWltU0TkeoT 6IGJvbGQgMTBw hYEMqW4ouunda1rywitjV rQaWIVbKSf6KLj6LZUptY niMmEgSDE7YpA3SIC2lFJ vpB9mrLcybtwb lB9uDyo+KDB0YRQ2OS97I D97X6KrLwanjSTxtZJ+PH RhYmxlIHdpZHRoPScxMDA pYcRrpIxuAY6m Ym9 (more content not included)... [facility] 08-24-2023 Consent Forms [id number] [facility]R Intraoperative Recordon 08-24-2023 MAGR Intraoperative Record MAGR Intra-Op Record Summary Primary Physician: BEN ZEE MD Finalized Date/Time: 08/24/23 12:42:36 Pt. Name: TERE RADER/Sex: 1955 FEMALE Med Rec #: [id number] Physician: BEN ZEE MD Financial #: [id number] Pt. Type: D Room/Bed: / Admit/Disch: 08/21/23 10:40:12 - 08/21/23 11:56:00 Institution: Case Times [facility] Patient In Room Time 08/21/23 11:42:00 Out Room Time 08/21/23 11:47:00 Anesthesia Start Time 08/21/23 11:45:00 Stop Time 08/21/23 11:46:00 Surgery Start Time 08/21/23 11:45:00 Stop Time 08/21/23 11:46:00 Last Modified By: Paola Gamboa RN 08/24/23 12:39:27 Case Attendance MAGR Entry 1 Entry 2 Entry 3 Case Attendee BEN ZEE MD, Brenda Torres RN RN Role Performed Surgeon - Primary Bmx Rider Bmx Rider Time In 08/21/23 11:42:00 08/21/23 11:42:00 08/21/23 11:42:00 Time Out 08/21/23 11:47:00 08/21/23 11:47:00 08/21/23 11:47:00 Procedure SI Joint Injection(Left) SI Joint Injection(Left) SI Joint Injection(Left) Last Modified By: Alexandra Paiz RN, Erica RN Baumer, Erica RN 08/21/23 11:46:03 08/21/23 11:46:03 08/21/23 11:46:03 Entry 4 Entry 5 Entry 6 Case Attendee Khushi Miller CST, Jacob Kraus, Sarah E RT (R) CT ARRT Role Performed Scrub Personnel Order Expediter Order Expediter Time In 08/21/23 11:42:00 08/21/23 11:42:00 08/21/23 11:42:00 Time Out 08/21/23 11:47:00 08/21/23 11:47:00 08/21/23 11:47:00 Procedure SI Joint Injection(Left) SI Joint Injection(Left) SI Joint Injection(Left) Last Modified By: Alexandra Paiz RN, Erica RN Baumer, Erica RN 08/21/23 11:46:03 08/21/23 11:46:03 08/21/23 11:46:03 Surgical Procedures MAGR Pre-Care Text: A.20 Verifies operative procedure, surgical site, and laterality Im.150 Develops individualized plan of care Entry 1 Procedure SI Joint Injection Primary Procedure Yes Primary Surgeon BEN ZEE MD Modifiers Left Surgeon Comment LEFT SACROILIAC JOINT Start 08/21/23 11:45:00 INJECTION Stop 08/21/23 11:46:00 Anesthesia Type Local Surgical Service Pain Management Wound Class Clean Technique Details Closure Technique N/A Entire procedure No was performed via laparoscope or robotic assistance Last Modified By: Paola Gamboa RN 08/24/23 12:42:30 Post-Care Text: O.730 The patient's care is consistent with the individualized perioperative plan of care General Case Data MAGR Pre-Care Text: A.350.1 Classifies surgical wound Entry 1 Case Information OR MAGR OR 02 Case Level None Wound Class Clean Specialty Pain Management ASA Class 2 Diagnosis Preop Diagnosis SACROILIITIS Postop Same As Preop Yes Postop Diagnosis SACROILIITIS Blunt or No Is the procedure No penetrating injury considered occured prior to Emergent/Urgent? the start of the procedure: Last Modified By: Alexandra Paiz RN 08/21/23 11:39:25 Post-Care Text: O.760 Patient receives consistent and comparable care regardless of the setting Time Out MAGR Entry 1 Procedure(s) SI Joint Injection(Left) Time Out Checklist Verifications Team Introductions Yes Confirmed Identity, Yes Completed Procedure, Incision Site, and Consent(s) Presence of Yes Site Verification, Yes Necessary Site Marking, Site Procedural Marking Equipment, Devices, Alternative, and/or and Implants Site Marking Verified Exception in Accordance with Facility Policy Anesthesia Review Antibiotic Received n/a All Anesthesia Case does not involve Within an Concerns Addressed an anesthesia Appropriate Time professional Interval Prior to Surgical Incision Surgeon Review Anticipated Blood Yes Expected Case Yes Loss Risk Addressed Duration Addressed Critical and Yes Non-Routine Steps to be Performed Addressed Nurse Review Equipment Yes Fire Risk Yes Checks/Concerns Assessment Addressed Completed and Interventions Performed Diagnostic and Yes Sterilization n/a Radiological Test Concerns Addressed Results Displayed are Appropriate and Labeled Other Concerns n/a Addressed Time Out BEN ZEE MD, Time Out Time 08/21/23 11:44:00 Participants Alexandra Paiz RN, Brenda Segal RN, Khushi Miller [employer], Morgan Shah Kraus, Sarah E RT (R) CT ARRT Last Modified By: Alexandra Paiz RN 08/21/23 11:44:30 Patient Positioning MAGR Pre-Care Text: A.280 Identifies baseline musculoskeletal status Im.40 Positions the patient Im.80 Applies safety devices Entry 1 Procedure SI Joint Injection(Left) Body Position Prone Left Arm Position Resting at Side Right Arm Position Resting at Side Left Leg Position Extended Right Leg Position Extended Feet Uncrossed? Yes Press Points Checked Yes Positioning Device Pillow, Safety Strap Outcome Met (O.80) Yes Last Modified By: Alexandra Paiz RN 08/21/23 11:40:21 Post-Care Text: E.290 Evaluates musculoskeletal status O.80 Patient is free from signs and symptom (more content not included)... [facility] Preoperative Recordon 0 08-21-2023 MAGR Preoperative Record MAGR Pre-Op Record Summary Primary Physician: BEN ZEE MD Finalized Date/Time: 08/21/23 11:36:07 Pt. Name: TERE RADER /Sex: 1955 FEMALE Med Rec #: [id number] Physician: BEN ZEE MD Financial #: [id number] Pt. Type: D Room/Bed: / Admit/Disch: 08/21/23 10:40:12 - Institution: Pre-Op Case Times MAGR Pre-Care Text: Patient will be optimally prepared for surgery. Patient is free from s/s of injury. Provide information to patient/family related to plan of care. Verify patient allergies. Confirm identity and verify consent before the operative or invasive procedure. Entry 1 Patient Arrival Time 08/21/23 10:50:00 Preop Departure 08/21/23 11:35:00 Last Modified By: Dyana Menezes RN 08/21/23 11:35:56 Post-Care Text: Patient is prepared mentally and physically and is ready for surgery. The patient remains free from s/s of injury. Patient/family express understanding of plan of care and participate in decisions affecting his or her perioperrative plan of care. Allergies documented appropriately. Patient identifiers and consent correct. General Comments: Pt to [facility]W via W/C. Pt with hx of sleep apnes but not CPAP use for years. Pt bethel any recent cold/flu/covid symtpoms, SOB, diabetes, CP, or pacemaker/defibrillat or. Finalized By: Dyana Menezes RN Document Signatures Signed By: Dyana Menezes RN 08/21/23 11:36 [facility] Outside Recordson 08-21-2023 Outside Records [id number] .00OTGTIFF [facility] Inpatient Patient Summaryon 08-17-2023 Inpatient Patient Summary [address] [place] [address] Patient Discharge Instructions Name: TERE RADER : 1955 [facility]: [id number] Patient Address: [address] [id number] Primary Care Provider: Name: Dale Flores MD After you are discharged if you find you have any questions, please, call [phone] ext [phone] to speak to a nurse. Discharge Diagnosis: Prescription Information: If you have been given a prescription for narcotics, seek immediate medical attention if you have any difficulty breathing or any sudden status changes such as confusion and sleepiness. If you or anyone you know is experiencing suicidal thoughts, mental health, alcohol and/or drug addiction problems; contact the [facility] 12/01 Crisis Hotline -text 4HOPE to 355918. If you received any narcotics, sedation, or any other medication that causes drowsiness for the next 24 hours, unless otherwise directed: ? Do not drive a car. ? Do not operate machinery such as power tools, lawn mowers, drills, sewing machines, or stoves ? Avoid alcoholic beverages and drugs for allergies, nerves, or sleep ? Do not make important personal or business decisions or sign any legal documents [facility] would like to thank you for allowing us to assist you with your healthcare needs. The following includes patient education materials and information regarding your injury/illness. TERE RADER has been given the following list of follow-up instructions, prescriptions, and patient education materials: Follow-up Instructions Medications During the course of your visit, your medication list was updated with the most current information. The details of those changes are reflected below: Medications to Continue That Have Not Changed Other Medications acetaminophen (acetaminophen 650 mg oral tablet, extended release) 1 tab(s) Oral (given by mouth) every day as needed Pain - Moderate. buPROPion (buPROPion 150 mg/12 hours (SR) oral tablet, extended release) 1 tab(s) Oral (given by mouth) 2 times a day (scheduled). Refills: 3. docusate (docusate sodium 100 mg oral capsule) 1 cap(s) Oral (given by mouth) 2 times a day (scheduled) as needed if needed for constipation. Refills: 5. ibuprofen (ibuprofen 800 mg oral tablet) 1 tab(s) Oral (given by mouth) Every 8 hours (scheduled) for 30 Days. Refills: 1. losartan (losartan 50 mg oral tablet) take 1 tablet by mouth once daily. Refills: 0. Misc Prescription (GOLO) take one tab before each meal. oxybutynin (oxybutynin 5 mg oral tablet) 1 tab(s) Oral (given by mouth) once a day (at bedtime). Refills: 9. pravastatin (pravastatin 40 mg oral tablet) take 1 tablet by mouth at bedtime. Refills: 3. solifenacin (solifenacin 10 mg oral tablet) 1 tab(s) Oral (given by mouth) every day. Refills: 3. traMADol (traMADol 50 mg oral tablet) 1 tab(s) Oral (given by mouth) every 4 hours (scheduled) as needed as needed for pain. Refills: 0. venlafaxine (venlafaxine 150 mg oral capsule, extended release) TAKE ONE CAPSULE BY MOUTH TWICE A DAY. Refills: 0. venlafaxine (venlafaxine 150 mg oral capsule, extended release) 1 cap(s) Oral (given by mouth) 2 times a day (scheduled). Refills: 3. It is important to always keep an active list of medications available so that you can share with other providers and manage your medications appropriately. As an additional courtesy, we are also providing you with your final active medications list that you can keep with you. acetaminophen (acetaminophen 650 mg oral tablet, extended release) 1 tab(s) Oral (given by mouth) every day as needed Pain - Moderate. buPROPion (buPROPion 150 mg/12 hours (SR) oral tablet, extended release) 1 tab(s) Oral (given by mouth) 2 times a day (scheduled). Refills: 3. docusate (docusate sodium 100 mg oral capsule) 1 cap(s) Oral (given by mouth) 2 times a day (scheduled) as needed if needed for constipation. Refills: 5. ibuprofen (ibuprofen 800 mg oral tablet) 1 tab(s) Oral (given by mouth) Every 8 hours (scheduled) for 30 Days. Refills: 1. losartan (losartan 50 mg oral tablet) take 1 tablet by mouth once daily. Refills: 0. Misc Prescription (GOLO) take one tab before each meal. oxybutynin (oxybutynin 5 mg oral tablet) 1 tab(s) Oral (given by mouth) once a day (at bedtime). Refills: 9. pravastatin (pravastatin 40 mg oral tablet) take 1 tablet by mouth at bedtime. Refills: 3. solifenacin (solifenacin 10 mg oral tablet) 1 tab(s) Oral (given by mouth) every day. Refills: 3. traMADol (traMADol 50 mg oral tablet) 1 tab(s) Oral (given by mouth) every 4 hours (scheduled) as needed as needed for pain. Refills: 0., OARRS reviewed on 10/03/2022 venlafaxine (venlafaxine 150 mg oral capsule, extended release) TAKE ONE CAPSULE BY MOUTH TWICE A DAY. Refills: 0. venlafaxine (venlafaxine 150 mg oral capsule, extended release) 1 cap(s) Oral ( (more content not included)... [facility] Patient Handout[facility] 08-17-2023 Patient Handout [facility] Progress Note - Provideron 0 07-09-2023 Progress Note - Provider [id number]. 00OTGTIFF [facility] Coding Summaryon 07-07-2023 Coding Summary HTMLBase 64 KymrlewyUKk6mJd+PGhlY WQ+MU0RQXLnT43ipSExwZ 5yI1HFTKnOJlvpTCTANJz AKoTwwpTgLN7pmZLbOLOj IC8+YO2wJBWdJqxftLLrq 7U3mEJ3O30rcl5aCFtvaX J1FMEqMrIofcxff2vssYt 6IDcuNmluOyBt CWNdvP45XTO2dI29Zn10l IZbqOJde2taaBd5EsTwRU QgURW3wKnhCTwhq2MwIFV aK34yiAHhq5V8 AKDvkRyfgZQtPfZlwBE1z E5iCVtoxxgam5otksfhNo f4ys95uJDht5L3bLB1D5M ibyN3ZICwcKGu QdamkOTGrQ0sfzpev0qnq wzfIpAdFNGjTYx9BEg1IT DtnHuhXlOaTF90SIK0VVE dlqAuY0MpBYWt kRoxMtA0w2K3Hl9ZR0ILA mvmW4GCPZHNPTtdmCZ+PC 15ld92B7OuVetjSab0WRE kCLG3wEV5vX6n OIAkKLzar2U9iFL8K7Lgd dEnml1er5hiHEZxRVhdN1 4tgZPju9S8NNGhiNW2XDC lyOdfOlGzkS39 Oyc+VHZchDguf2OmZhbgg 6huw3chqQd9VvrcVEGxny MulKljVYU5f1FuSi4zKUO nuVC7jVD4qX0y BmWsMdP0MQrwK530RpKtd PHwTuzbX52dK4NoqTT+PH MfXbe5TAFhaSplLX6cA5H hZGRpbmctbGVm kUfbRD9eSRIcpaioIOFok K7vXAIdY5m3RnFcOyA6OD nvY0CzBVDvkogjEi06jN7 rJrDsYuF9FCtb B3QuwaX9GMZnrLGdZSndG DO3Q08hz8U4OGVkKDNqGG R1eBA6bQ8mxKjbcgnoeBB mdDsgdmVydGlj YUppHVutS534LEPhtDotE kNvZGluZyBEYXRlOiAgMD EvMTYvMjAyNDwvdGQ+PHR kLWT5dKsgENTd rMGkIXzfRl3sqJcjbBttQ L5dOYHkvuopGYIjvH2sVV LvaYCsaLzrEF1xVJHcigo su495BfAwOVB9 WOCsyXQvD1QijV9uCiVkO INeMUHqL8GsvHJkZSmfE3 11ACmuGjH7EUEkcvMeI2B sLWFsaWduOiB0 n8U4Ql6Xa7UvzjaaS7Xhm EMmVyLvUzxbQXi6L1VqDu wvdHI+WL25TGWfIC53JHh 7OUJ7pMfkBOrm HXZaE3OowE5nPgGjUBWfD GRkOyc+PHRhYmxlIHdpZH RoPScxMDAlJyBzdHlsZT0 cRh7eINTlXZFt oRofoNPxMiZyo3tbCITrS XmkSB3aqVvwD9BenAC5AM Zbm6u4Ir42H04aA9XjyOJ +IBKngJJ1eHN1 hU0wBjYiJdX7RQxcA189N mSwfGIfPfbeg4bzg7vloX g7JqE4ALTtldOznRzvNYC 4f7FsFg45P73m IHdpZHRoPSIxNSUiIHZhb Bshfo4akK3oWy9+PGNvbC P3dWW2cG7vWiYrSqR4IOq aN857BqFjcFNa Xsttx4cvj3aguHx8SfVmV WKeeuUnyXoeDXR1j5QeAm 45A3LfmQbgb0TbGay8ch9 0tCYpp7O2xUR2 L0OvGHOepuxeuKIpuSqnI L0kTVXtkiaxTEUlgA2tIQ FeR2v5PfSmKgM2ELncB9D hlvX5JMIahZZx BXYlnUJJuV5rthzvv3vtl opbFvDiQBQpPYc3BWp0AC LkuKjaWzItQGW8VnO2YNL 5tUDzsT6lqVpr qchllO4nAlo+RRF2aFKly UQALG6qLukfcNS+PHRkIH D1eZdrNZnbFYGvmT1qXZR gF7q7MrVnYnL5 GVcwX9SrebE0HWMtuABsV HBhdGIZbB3sihsrx4pktz erAyZvKVExFWy7NTz1TDN saWduOiBsZWZ0 DpT4QSY9jKIksS3buVpdp asytK1pZvc+QmlydGggRG A1KTt6J6EwSwm0TURaxGj ePC2bkBCsBMsj Oj6qnAhotRxsJA3vHGWrh hkaq524FaQbh7dgHDDcpJ VqISdqUHF6F71pc8O2NSK pZXOzHUZ2zFC6 nE4qrTeuxpjmuARutMmtv mLfqHsaHFhtRAzeX766YV CioZgdAuNlCLs5A9KcDyy 9LRFdmZorGT0t tJBdIQwjKt8kxNnreSgfN H8aMZIxdanxp227SrLbx1 ycEAMhnMVpOCksGYH7T51 sd0I7YROfXGNn MLR9pID4pW6fqIqvxsjrw GVmdDsgdmVydGljYWwtYW rtG961RPEhhLqdWwRosKb 9G5EaKmb2JZUa cJcgSM5olHYtPZsmGb5is QofnRuhDM0yQBAcomcfm4 30KtPmk9giZLLvhDNvRKo rSHH9F65ci2E0 RLHcYXVaTUB5jHA1vP8uq GlnbjogbGVmdDsgdmVydG txHOstGYvnP630TWSggEe nPlBhdGllbnQg MQifGZk3S8TmFuuckNC+P N56OGHvOI09kOGgfOEbb7 udyGi5InSdGUBwEFW1fCo mOObvs9TyAAUd F66nuMEki1L5JXOhkBqqy ZYtPqZimTQ8yR8iJNwqds fiw6jytfbtPsxul6ndte3 7dP91U15wQHia ZHRoPSIzMCUiIHZhbGlnb g3bxZ3mAi9+ODWbvJW2pV C4oU7sIDIuMaO1ZJbwP67 9InRvcCIvPjxj l2sjo2auzDr3OoP5QZRge iZngUlzNTC0e9LgZl81C1 9sIHdpZHRoPSIyMCUiIHZ jfZifmw3byY7i Ii8+WDQquKS8yPI0oR4kG jOcGfF6PRaiW725IxVxaM FsLrsjS28kU1SdgXG+PHR eGig3JBCcmKgn QI1dnBLyPYmfLp7aFQK1Z eMeSoBpTVbcL7XpBPZghe cwwyaxsCV9DNCnELBphV3 6Io8wzDqfJNXd fSNDgL2vyxwxi2gazkluN mLoSQPuGFg1HPm8CEQwdU miJxWlMIC0PoZ0EDV5hLW jfI1syAeuojes fK5rQ6SpAUVnjureDg33b T6kPnVkZnK0MUdkZoc+V0 3QYlXpPWjSEMvGOK9eOPq SXhKHSYZFLQ27 NM82sCToh3F9gGH1A0DzP SUjipkktslmmOX2AFUzWY FoxX31jYQcZJrgQv8fu4M 4p458KYKtAUGl qW84Cx6vePiwBQXqkQMLj M8zmhcxk0ghacicChYcYU JcRKw5VCn1ECGpnOrvJwY hCNI2FiJ0HYR9 jRZcuW5meHnhgvtmoA6tQ yc+MBLnNDNdBCa3DFsfrU Q+QKBfIGU5jZtbSKcsJMH xvT6tETUtB4l1 GuZkUxM2KBliZ3LqIGKjx hfoSu06iY6yYuRaYeO9UH nnW2GtqcO0GKBzdEOjPSj kPCJ7Z71im1J7 OVNhNJJdPUA0nJR0jB8kl GlnbjogbGVmdDsgdmVydG quKDnpCDyyX400ANVvhQn kLoG6ERhaXUBe GQ58PX29mNKrx9Z0ePS4M 4QmQNLuugsyehcedDH2PV VtVSGakI28bEFsYSkgWp9 up2P1b765AGQv PZGkwE26Cc9fgWzrWWPkw TCRdH7onexga4rbdqcmJb YmHXBmTJt7ABi5WJQdjLy zBuQiCLI5LpW9 CXT7iNKqgG5qgCkacrzls G9wOyc+DaWQGFcHVM43HV 27nFRjh1X2oYD2F0McQQP pbmctcmlnaHQ6 RFIrQALyeG86gUTxAEeeI y0ls5K8p880YZHdCSVkkT 86Fq8hjHlzUFPtfKVKkH4 wthasl7dgrfwv PmDjPKSbJBn8WGt1OEKba CrwUqOpINI2HxJ7HSV1yC IvlS6vhCxlmuhfiW7aZbh +S3S8K8TgVzqr dHI+OE05IZZgCX51nMFat INxa1njkMz4KkMlBFLaIL U2dJmsYEcxl3GkZFXvX94 ruUVqq3M5AGGt rVvubYTtTxVbkRE3gA1gH Xxdutqem2peznnwNhbxo8 kimc51vX02S07zUTzmKEN oPSIzMCUiIHZh dTtplu9wzE4mDf0+PGNvb GD8rWI7yU4yPjTbEqX7XL jnW197VvCiaFWbSkqrf8x vh0vglPw0WyQb FRFyjkXfqUcnILZ7w8GyN b87G50fVUmcOPXpHSUuNW TrNXCeeGqxpz9ckM5fAa8 +TO5tk8fnap70 jH85qKV+NREiLHO6kKdyN UatCPZtnG3pTZsqIyL2VQ EwEpJqcK12kYLcZKhmMg6 slCtnaXnbHK7w LWPfyehab735XhCdw0alU BQeiMEuFAokFIP8B61kb4 L1SAAiJIUuHWC7uKD4sA2 hbGlnbjogbGVm dDsgdmVydGljYWwtYWxpZ 098DAJzbVmxHkKfmWKmE9 wkwsVBRV4sHvqbrOS+PHR kOTQ5eEpeNSzl RPManI7zKZKuE4c2HcAqW vI4DRemE6BrxaA1DYWvdQ XcRSDtgAFHgM8jjhcfy1j vcjogIzAwMDAw QIq8NSb7IELqzLsxUaHqU CN4LrK5RTX3hWYzjN0jaH mapfpweS2pDsa+RklOOjw vdGQ+PHRkIHN0 mVxdJPfrGGXqrC0cQCCxQ 7q8AuGnVoB9ITusZ6Ghai X9BXHtsRJgYIHesHQCjT2 jkndky3parllp RgXqQZFjEDo7RVm5ZKHry OrxBjPoIRG1PcU5SOK1iN YfsX5vgCduvafqmE8vXck +TVJOOjwvdGQ+ BXKrAAY4tDsjLDyzMDVgb J9kOYZaN8o1IwWgHfD0LM kzY9IqmpF8ZNCgyCYuOKR duTOFzW6sysbf s5htzfrnKxRyIHTuSYi4Z Mp8QPDteMadUzWvSPR4Yv T0GDB3hNZdpO6lyOtwxod zlO3lPut+UGF5 WEP1JI64EH93S9CpSfuhp GFibGU+PHRhYmxlIHdpZH RoPScxMDAlJyBzdHlsZT0 wNm5nBXMwAPLb bGx (more content not included)... [facility] Coding Summaryon 06-29-2023 Coding Summary HTMLBase 64 WdbdkgadFRi7lMe+PGhlY WQ+QO3GXIYhM09yhMDrqP 9eD3NHSGdZCjdgKVXFXJh RPcJnryAwRO6zqZWjZIBu IC8+JD8nJMDmBewuiIQdp 1G7yYC0P63qgo5sLIlsvC C7ISNbLxSlgfpej7iquPk 6IDcuNmluOyBt ZZYokS49ASZ8sT59Jj73d OOhgHOce9yqdDt1IaJrMX KeSSP7pKnzMPfyz9VaRXC vL16byAJjh6P8 LJJdmApxdMWoWvKnwHJ7z B9zOMnocodcy0ecvblqPr d3qe26wQJsc8K3tLN0M7V wwhT9DVGhePPb ZgghwJYJxB9xjksnm0wnp xaxTaYdIDKbBMj7LHz1QY KhcGzrHiNoOR44PWL1XKK qpdSyT1DcUOCo hNqoCjQ3q8D2Fx9DZ9OCE xlbW3ZLESGUZQnkqQF+PC 99ur49B7BdOxkwCvn5WVJ aKJZ4bDC1jO5y TCZdJVewz6I4oCH7U6Zqm tEmnn3qs8mhKWLuBJtrF5 7bvSUny1T3VEMvaHS1MAB yhWupXtIhfC56 Oyc+PGRlwMtde5HlUwlwh 4yop3plxFt9LjldCSNrmp JwjJrqPLY6m0UnXn2kPCG soCH0sVN6nI2k VgVsByX6UFfcH223DxFoi LJoZqjmR88tA1IlwRU+PH AyZyl4ENMdyBldBG7uQ7W hZGRpbmctbGVm yElyRJ6wCDMwfyemBPLcb L6gWCUqP1q0ZwRtXuU7AE ezK1ZpJEFvaxpnIg51qH3 sFbJlCpX3WYbw R4IrguF4OALchHLzMNzyL XR9X96gq9E1DHZsFQRqRY Z6uPN2dL5flGffxsmsvHZ mdDsgdmVydGlj CJmgBDkiE604MCWggRzaD kNvZGluZyBEYXRlOiAgMD EvMDgvMjAyNDwvdGQ+PHR sWOL7fOxwKKSb lRPjWRzaHn3tiTgcfAbnC H4oVYFdugqyDHYetT2nNA NtrHFqaUkkBP6qARIcton zq634EeDmYBY8 MAAdePKbN6AdpF9jScFeR SNjZMAeS8LozNQpCGuyG6 21MYreAbC5RUQfoySsH8B sLWFsaWduOiB0 p5Q5Hq6Yn2ZizvyhW0Pie JJvDzHfZfwaMMp6Z9BhQg wvdHI+PN68FCLiIQ73XXz 1YPH7lFivZKei TNYgX6AatY6zWoZsVDKlI GRkOyc+PHRhYmxlIHdpZH RoPScxMDAlJyBzdHlsZT0 aYk7tTLOhQPOq aCgghFHqYeDyu3drBNUfY FdlRT6mtHukT7KqbEX8WH Nfs4e8Hv28N58tX9NcpZG +NYOlaMV0mQC4 jC7xGlSeWuK8KBflY971B xPcwUNiHjsqf9ygc9jdoH a4QxZ8VVVlkiKlpBmuWDV 3o7AvMp81O47v IHdpZHRoPSIxNSUiIHZhb Jvfir5qnA6rTd5+PGNvbC D3vJP1sE6sMvMmXeX0ETa fG435FuOfnXSo Lrimz0mif1vdwLb3UsTdR XEiovUvtGkgYUK4a7PdEv 86I9WcrWxbm4TjPye3oj3 4bFUzd9Y8xAI0 V6XtQXKtheakqYGmsLozQ O6pSHWhcbqfOBXdiT1aYB XmE9w6QlOlOkS9QKbuF2Z dblC5WQZjsSIt KELkrDSUmJ1btspyf6mnr ddvOuWkJAMpQPe7GKh1EQ OglIphPqUfELO0OnD9DZM 0rRJacK1taTuq rcvslZ5cAci+WQC8pMPow FOMQM4kNpuenEN+PHRkIH J6gCawQTyeQKHcmP8iSUI xV7z9LgVnKcN8 MOrdD5YdllB5DYTpwZGeC HJbcAXIhU4pmknnf9qifw tuFoMaEQYyZGt8JAt8SEY saWduOiBsZWZ0 InT7ZVO5jCNnbH7ixSmyt evveL0xYwg+QmlydGggRG L5JYy7P1YpMnr5XVRnpSt qOY0tmMWtFZzf Kz1nzHydvOlrNT6bUKFyz ytvz224AhKbx0fzYWVwfA DoSCfpOCM4G23af7Q8XUZ tUCQzTBB8cVU6 zW2vsUvihteigNXxbSziy aOwjZqjVOhaFJrcO733GC HtnQwrRhTbACk5G6VhRtw 5XSSwjBlpOB3r sLByVIrtGb9afKwokCnxS F2pMMIdlxrgy235XnFbg7 hkXXRsnPLtHGaxJDP5N09 bv7E3LOFyFIBc OJM2bSU5dL7ugQshcxqck GVmdDsgdmVydGljYWwtYW doV871QJXdcAnuNjBtjQf 4K2GbFsx7CXFw eRzuMO5keUFnJTcvSo7pl LecsPliSG9pIKAekfoam0 10GaXwa7daDRVmyDYzADa tCQJ1D40co5L4 CXUvVGRyGUR2bDN2fC0kw GlnbjogbGVmdDsgdmVydG nmGVheBMkeB259YYJkmAp nPlBhdGllbnQg RFbkRBr2L2UoPotowMX+P A09FBEkAK37uBMmzJJey3 dscZn4SmHaLOWoKAL4jLn iHYxyo8HmDXGb X30lcSNxg0V0IMKovUqjj OEpTlUtbKO3oK7wSRfrwm bpr0piycbmObylw3scfr5 2rB18V32zCBhv ZHRoPSIzMCUiIHZhbGlnb s0uxG5pHu0+SVIreDJ2tX H3aQ6gIPGoToJ8TGeeT26 9InRvcCIvPjxj f6xqb4klmDq0ThU4BDPbv nDtlBraPQX2j7WeHj82P4 9sIHdpZHRoPSIyMCUiIHZ xzInmqz2tyF6x Ii8+BENvmYD1aXY1wN4bL bBuVzN0TTxmK223UxSgcF GsMypyV37qG2XlaDY+PHR qAol9PVXbvQsm PS4hhAXhTIblBi4iZDT8V lJwBcIyRUqrV3MkXBLavu jhhylwvPF6DIWiDZPdyC4 0Vt2voCqhBXYc bUELeT3ldzebs1orwwskA rObDLBlGOp1ANg7DLAvhT rtDyHfXLL4LoR9DHK2gWR qeF7yfAffezzp dL9aR7MfNTTbbwxwXq94c Z2jQhWzIwI8QIsjVyq+V0 9MVbHvEVkFNQrRDB0gNFq SKnDLKDTOTB46 RD98pFVka3F5uFW8E5HtP IRoopcsfuifgKN9MIVuQF HoaO56lRMmQQmdQp6ek9T 0i557LTGrBAYj nE34Lh1krGofOOMsuHXSr B6harewf9nybsvoWiYcAO CjJSd3NKj7RQBgoDylXxH zZIA9ZgF1NNN0 tJPqlK4avMdwfnviyF1dL yc+YIBnIDRfUHy6EHxoeZ Q+PVZoKUR6oQsgNBzaZVU iiA2fIVJgG3f9 GpNnOeG0UEjmA8NnNMSlo hlzAn56pI6fMvUfKjF2SU pfQ3OiegG0LCAwtGQzRQp nRVP8Q10dm4Y1 VUCxQOXnSXI3nTV5mP7vi GlnbjogbGVmdDsgdmVydG drYGtjAYaoG975RKIybHx tOlB1IBpeQVBj RH76CY57zBUsm4Y7tOX3E 4BnBPXnkvyhhlcljJY7CB QeGXDocU55mLQiPKtjIu9 fk4K3d933TSWk ATDhhT90Wa8ukGwmUWZou RVTbV1ewnitq7wtcicuOm LpHXTqLYj9QJu3GRIjiNz eQgIfQAH3NxE8 ZYH9hRHroV6plZqlluyqz G9wOyc+BgTIYNrQKK83RW 43dZOef2H7kYS8U1QcSME pbmctcmlnaHQ6 DBNqLRXotE80zOHbIBnrL p3ie6E5r216SPDfUXUusE 51Xq3ifQawAZXsrIWZaQ5 cfxkzc3kqlzcx ZcBjGXUlFNf1IDb8CXMev WzaEeAoLKO7XeE3QNR5kO OhoU5pkGmyschliM3gOmn +J5T9Y4NjFpdy dHI+NP73NZCnMM89uVUdz KVfb4oqjVv0DjRvPDLfEF H0qWzaXIpvt0VgIDZlD00 lvEKtk9G1BRCs kGilbHRbOhQgjUR4jM9wM Yjgjlxzg0ttxolbAiwkd3 paxw72vV60B45fZHygPZQ oPSIzMCUiIHZh mJdbzo4eyO1bQw4+PGNvb MN0bVA2mT0uKhEcAnK6VB seV401XjGpoBJcCuwpt8s hs3uuaBo7FcDj BCBnokKjwQpxSKG1j2KoT r86Q52dHRbcNNSoDALfEP PlWLXmtRtjsn9nhS4bKi1 +ZB7kn0xgxb88 lY40cHP+XRSvGZL9bKkjQ MbsFFRbgT8qFBccBdC2UZ PiCiZpwN37nYUwOGlzCu0 iuHbrvOtyAS0w HXJacwqvf913KdSjw3ewE SOmtKTrPPrmTLZ6L38ar8 V3EFUxDDMcKPA7oQQ1lV5 hbGlnbjogbGVm dDsgdmVydGljYWwtYWxpZ 621QMJifWapUxGpoDZcF7 syrzOSTK9bNnpwxEE+PHR dVSY7jDpkUZqy PRFhoQ9gZVNkH1r6TtQyP xE9LCplA5UanlA5OOYguM VrRBMiuQOMwW6gffcup0o vcjogIzAwMDAw PKf8AAj8ZLJqaPprWoMfF AG2AxK4NMT5bOAxrD1txQ taliwgkL9kFrj+RklOOjw vdGQ+PHRkIHN0 lPerJLgyVVIciP8hMSDkN 4b4CmXpNyL6BEqwV0Avhf F9QEDwyBAcTHBpjJWErW7 tizhoy4mksxus DkTtAVSjMMs3LVj7HPIlz JmoPkTuEDA4CwF8WQF0fJ GeaQ1spLwfglsjfB5zEhp +TVJOOjwvdGQ+ QHYxIAT9rKtvBOhvLPWcg G0jGTEeX4g7MfMsOfQ6TL muY8AkyxY1BWRszANiWIZ fqRWQlH2tqrhy e7imimtiDdGcPBGgTNa8Y Lq9SXTxtCosRqHhVAR0Sz J5PKM0rEWlaG6tqSgsqny bqZ5eZjt+UGF5 RNT2NO99OE15O4YtSzjpe GFibGU+PHRhYmxlIHdpZH RoPScxMDAlJyBzdHlsZT0 hYs3bGFSxPFPk bGx (more content not included)... [facility] Office/Clinic Noteon 024 Office/Clinic Note Patient: TERE RADER Age: 67 years Sex: FEMALE : 1955 Associated Diagnoses: Chronic low back pain; Hypertension Author: Dale Flores MD A History of Present Illness 67-year-old female here for 3-month checkup. 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 She does occasionally ambulate but with the use of a walker. She does require assistance from her . No recent falls. Medications were reviewed. She does take tramadol as needed for pain eats well. Sleeps well. Does not require any refills at this time. Review of Systems Constitutional: Negative. Respiratory: Negative. Cardiovascular: Negative. Health Status Allergies: Allergic Reactions (Selected) No known allergies, Allergies (1) Active Severity Reaction No known allergies None Documented Current medications: (Selected) Prescriptions Prescribed BuPROPion (Eqv-Wellbutrin SR) 150 mg/12 hours oral tablet, extended release: 150 mg = 1 tab(s), PO, BID, for 90 day(s), 180 tab(s), 3 Refill(s) docusate sodium 100 mg oral capsule: 1 cap(s), PO, BID, PRN: if needed for constipation, 60 cap(s), 5 Refill(s) ibuprofen 800 mg oral tablet: 800 mg = 1 tab(s), PO, q8hr, for 30 day(s), 90 tab(s), 1 Refill(s) losartan 50 mg oral tablet: See Instructions, take 1 tablet by mouth once daily, 180 tab(s), 0 Refill(s) oxybutynin 5 mg oral tablet: 5 mg = 1 tab(s), PO, Once a day (at bedtime), 30 tab(s), 9 Refill(s) pravastatin 40 mg oral tablet: See Instructions, take 1 tablet by mouth at bedtime, 90 tab(s), 3 Refill(s) solifenacin 10 mg oral tablet: 10 mg = 1 tab(s), PO, Daily, 90 tab(s), 3 Refill(s) traMADol 50 mg oral tablet: 50 mg = 1 tab(s), PO, q4hr, PRN: as needed for pain, 60 tab(s), 0 Refill(s) venlafaxine 150 mg oral capsule, extended release: 1 cap(s), PO, BID, 180 cap(s), 3 Refill(s) venlafaxine 150 mg oral capsule, extended release: See Instructions, TAKE ONE CAPSULE BY MOUTH TWICE A DAY, 180 cap(s), 0 Refill(s) Documented Medications Documented GOLO: See Instructions, take one tab before each meal, 0 Refill(s) acetaminophen 650 mg oral tablet, extended release: 650 mg = 1 tab(s), PO, Daily, PRN: Pain - Moderate, 0 Refill(s), Home Medications (12) Active acetaminophen 650 mg oral tablet, extended release 650 mg = 1 tab(s), PRN, PO, Daily BuPROPion (Eqv-Wellbutrin SR) 150 mg/12 hours oral tablet, extended release 150 mg = 1 tab(s), PO, BID docusate sodium 100 mg oral capsule 1 cap(s), PRN, PO, BID GOLO See Instructions ibuprofen 800 mg oral tablet 800 mg = 1 tab(s), PO, q8hr losartan 50 mg oral tablet See Instructions oxybutynin 5 mg oral tablet 5 mg = 1 tab(s), PO, Once a day (at bedtime) pravastatin 40 mg oral tablet See Instructions solifenacin 10 mg oral tablet 10 mg = 1 tab(s), PO, Daily traMADol 50 mg oral tablet 50 mg = 1 tab(s), PRN, PO, q4hr venlafaxine 150 mg oral capsule, extended release See Instructions venlafaxine 150 mg oral capsule, extended release 1 cap(s), PO, BID Problem list: Active Problems (16) Chronic low back pain Depression Hemiplegia following cerebrovascular accident Hemorrhagic cerebrovascular accident (CVA) History of stroke with residual deficit Hyperlipidemia Hypertension Lumbar degenerative disc disease Lumbar spondylosis Muscle atrophy Muscular deconditioning Obesity Somatic dysfunction of lower extremities Somatic dysfunction of lumbar region Somatic dysfunction of pelvic region Spasm of lumbar paraspinous muscle Physical Examination Vital Signs 06/29/2023 13:32 EST Peripheral Pulse Rate 61 bpm Systolic Blood Pressure 124 mmHg Diastolic Blood Pressure 86 mmHg BP Site Right arm SpO2 98 % Measurements from flowsheet : Measurements 06/29/2023 13:32 EST Height 165.10 cm Height/Length Measured (inches) 65 in Weight 125.6 kg Weight Measured (lbs) 276.9 lb Weight Dosing 125.600 kg Body Mass Index 46.08 kg/m2 [place] Body Weight Calculated 57 kg BSA Measured 2.4 m2 General: Alert and oriented, No acute distress. Respiratory: Lungs are clear to auscultation, Respirations are non-labored, Breath sounds are equal. Cardiovascular: Normal rate, Regular rhythm, No murmur, Good pulses equal in all extremities, No edema. Impression and Plan Diagnosis Chronic low back pain ([id number] M54.5). Course: Stable. No changes made. Continue on tramadol as needed. Will continue to monitor OARRS.. Orders Orders Evaluation and Management: [id number] Office visit - established pt, Level 3 (Order): 06/29/2023 13:30 EST, Qty: 1, Chronic low back pain - Hypertension. Diagnosis Hypertension ([id number] I10). Course: Blood pressure is stable. No changes made. Did not require any refills medications at this time.. [Electronically Signed on: 06/29/2023 13:54 EST] Dale Flores MD [Verified on: 06/29/2023 13:54 EST] Austyn Flores MD (more content not included)... [facility] Coding Summaryon 06-02-2023 Coding Summary HTMLBase 64 OxjhbuqjYVf5fEk+PGhlY WQ+UP7NAAQxO31hlVZciE 4vV3ZBJQaBXhpsAGDAITz ZTvZpaoHnRU5voXTuFCAa IC8+YA8cPPKbCsykdEMtg 1U1mLC8I85lho6iEGicfL T1RYKvBsRwqjhyb7updJs 6IDcuNmluOyBt QXWzzE66FZC4kX61Gm85h HHhbEKcn3drjVl7OfDwWB JnGHJ1jJzkGUjdx0EtDFF tJ79jiHShd7R1 CTUbgIzpkAGkXrCooTJ0z I0lAFmwglika3uevcleOe l5iq36qHNdj2R4vER6K9X ooiG0FOGfnQIk EsfseFMCvA5zmwpbt1irt xonGzFlXKRcAAc2UZh3HM YucJhiPeOdVX97MUI0NIK bgfLiB6MjFYHn sKozImY5q9S9Nd3SU6FXL lvhK2FGBLZIZEvqpYC+PC 28cv23C2YxAvmsFkt7XQP wTXE3pCK0pA4o WVFsTVxsh7T1fJL8F5Trd vTpfl2nx3xhUVAzDLdnK7 1ueLDep2Q5OFHsoFF9SVE mrOhuMnKnxE74 Oyc+GAQpoGhms8OxOjfsi 9mkf9rhoEi8MrawZFBhqv SovWzePZC7p9MkWh4kZCP bvET3xJR3gH4m IkJkVuA7OZzlZ559NxYih QQxItirE03aX3QbxBL+PH TbFhg8VBFatMjyXJ6mC8H hZGRpbmctbGVm jJkjDM8bVYRymamhVLZcd X0lZTMyY3k2VeZxGkR7BV urC5EuUBEibyceOd23xG4 cObXqKjH1VLrb A3FwocT8JSVhtNCrRBcvK IP5B66mw7G0HKPrJEZeEA P4yWL5gH5nxQvdmlqynSR mdDsgdmVydGlj BGqoIUhfA268SFDjyZzrN kNvZGluZyBEYXRlOiAgMT IvMTIvMjAyMzwvdGQ+PHR gEVY7vXneFMSq tMRgRKayJa1rdPbcpHsuN A4rRVFwwmqqPWHoaJ3vUU VufEKnkKxiSC8wAVYjxve bw941TnSpAKV3 UMOzcSOfS8NvrQ8pUrFwV IUnFNDcM2VuaOFfZBmmL0 61QKsvXlN5FWYaxcDrG6A sLWFsaWduOiB0 e5O2Uo3Of2KtvgkwI2Bva PHkDeSyTykkSZa9E2IlHl wvdHI+RA85ZOCgNM69ZQa 9BYT9iQgsEUix TCFuY3IzqQ1zKfDxAGUyZ GRkOyc+PHRhYmxlIHdpZH RoPScxMDAlJyBzdHlsZT0 hBn1jOODrHZBp xNhlmLJlXqMia1jbDIFqY SktSX5ngIeuJ5DzqGY1MW Wjz0a0Ou95M47hR1CdnYU +CNXihQJ7nDU2 eW0bQwAdNrG0FHzkS823Q vZkbBZkUciuz2uqa7zvxE o3SoB4WMDolnFycNmfZQU 9t6GqEb30P96w IHdpZHRoPSIxNSUiIHZhb Adjcr0fmX1hIy0+PGNvbC W1rNC9oI1yCdEfBrI2EEs oC024GjInzYAr Egxcd3sfj6uvjTj0ExGwG YCidzWewVjqLCN8v5ShHb 37K8VuxGaql5YrTdj5ve5 0pFSpc7K9sRJ6 J0BvOZLfogvpdYYqbHkuQ A8nLHDutttkLFLceL7vMI GvC3d0KgAtYiU1PKiwM6N uuuZ6PVLxkGZx SVWmlOYSeK5bomemb8zlr xdxCfPaERCrTWy8YTt0LO DbaQgxMaVcUET2NjV5HBC 4kTFasO5ohAyl zkkvfT7kDot+HNT4kSRaw OAUET7pNkuuyEJ+PHRkIH P1oFryBTmrFIMioR1vIGE fE9m5XdVkHtU5 NGcaX4XxjxA2XOLquERvV GCvpZVUjZ5lcovhr5vizd dlZtYcVWLcKUc9MVu8HQR saWduOiBsZWZ0 JnD9YYM5wBMrjW7zkJnph saqvV3pWvd+QmlydGggRG U5GRk7L0JgDpl2BJNvlDc gUJ9beAZhFLnv Ts9obMlrwOakKJ4kKQIxe ztei027FmEgi5gwDNHzwS ReWSnkQWA8L71jl2M8HLG wDZEpGFA3kHW6 vW8juYggjtqlqHRkyJuqr oPcxOfxRBhtSOzdY874QV RvnSgjZtDoMSb7A4ApBkz 0TVEelVhgKL8s cGVaGYxwGc3zyQginKzhZ A6iMVMffpgfw005YsXvk9 bvFHObxGUgFBhhOSN7N95 au7B9RGHeLZKi IIB6yQY2nK1riTktyiiql GVmdDsgdmVydGljYWwtYW ikO861PAUzoCvzCwXhjCq 2N0NbUwb5BWRp xRoxBJ9lmNHeXZjqIv8wz IdybSxjOV9lUENesuthw7 28JaSaa0mhKWRxbTTsUBp mJJY8G88et9H7 APHsKXBiQKH6jTC3xH3yc GlnbjogbGVmdDsgdmVydG cgKWppRFfoA752ECVgqOn nPlBhdGllbnQg AKciJHw9Z2VrQxmvcXG+P Q92WYTrUJ78qVIbwFPqi5 rllEz8HnNtNOAwLEX9pJx eKRjdp8ZgIWOv N30tsPFze7N9BSQahAlgu QAcEeBwrWR3vS5jHMxmma zhn4dxtbmlWkova2graa9 6lW52J49pEVre ZHRoPSIzMCUiIHZhbGlnb y3wmH7gCm9+VCWmtGR3lU F7uA7lTAHpRqJ2LSjyX55 9InRvcCIvPjxj h4oxs3jxmIb9WvL5KPKgm nOciHkgBQJ0p9PjFw54V5 9sIHdpZHRoPSIyMCUiIHZ zzGqprc8scS3g Ii8+OBVrtVY6mOZ5vP4dZ sBvLrO0UPvuE008RbMocE PlTvnoL21tV3QyhSO+PHR zNnu6TSRrqCdh ER1plUYzWJqjOe2xTSW0K aRvZtBzDOouA4XcDNNnas lrggrjoUN5NEJyEBOkzV6 9Cw3yvBwmJYJq eWZMmH8cebgri5kdjfxaZ jMlQMJeKPm9GOp2OOTrtX uhZcKvRKS7AkC1XBJ4lGZ mfJ2scHrporxg dO7pM8LyEQNgylcbTt09o R5nUqZyEgV8FHbsMya+V0 2WPqOiJFmBGQzDHV2zWIq JPvZZJBUVOI88 OP51aYGvi4F5eQE4O2FhI LQlrphfaeaszVA6NGTmYT VopZ63cYKyGPscMg5hy8I 4t562QDPcVIXz lP24Jn7sgPxhCUEryQQSp I6ccwupl8bgcfkaAsJsJL BsQYz7XXo5EYPlmJgxAmP jRSV8PnM2CVX6 iDRkjW5pgAeknipfqX7cY yc+PIPhODVfONn4WWuycM Q+MWAxVWY6pQsuJGukTZV ydR8gOTOaB9t8 ZaLuJkT7PYvmJ3PgKAFif dveGy12oD0vKjQqPoA5AF rwY6DqilP4YBTueOWqAEu yIAX2A23jo2N0 XTRlCTUoJZG8qHE1jJ0il GlnbjogbGVmdDsgdmVydG qiKKqoAWrpK541SJVxyPq lXjJ1THtiEXAo EO44HH62yKIby2M5pPO9S 8OqHPPjmyewsfywbLN2DF YhKSSqpW65wZQpIPxnMy7 rm6Z5s077VISe POXytU02Sv2utSpvYLCiq YEZiT1pdkmdg3kywonqNo UzWTWbTDs7UIb4VKSgwGs zRkDcNKP9BoK1 EOT2xRLuqO3xpLndwbzrb G9wOyc+KwFXUIwIJR88KD 14nYLgy6Z5nNB9Q6XiYWT pbmctcmlnaHQ6 TYTfBDOmhZ88iLXuGTziR j8ye1K9y663VVOgFVGtpX 37Av9uyJenZJEhcYSZrE8 rlnqqo7rmkmsr RlAwWXIrSSk3CIw4JTKel SmhYbBzXUB4SsB3YAJ9kJ OdhO1epJnreuaymS8lKqs +FGJ9UNP8otfb wuh6J2GpFcrvoVD+PC90Y GTdDM73gORmkQUoh2rulT p0GxRzRBCyAWK9bKzfTIi cd6WlJOJzG15z yAUvv6X4JUBvoHthoUTlQ nHkhOA7hX0qWRlswnlym8 usfhhoLoasz9mjea49iS2 2X36wAJsaDLVr KWYmRGOqXOAkmAvqlq0uj G9wIi8+EJNsmFB3lAA0oP 0hXbGoJdF7NBldK583NdJ ftXVrEbwyo5cx u3fhdNi4RzGaHWZdjvVii WluWOJ3m4HuNq35I04mMB dpZHRoPSIyMCUiIHZhbGl ypq7qnP6zAr3+ EY1iu3vyfw94nW15qBT+P KDzKPK2aQcdLLimHGKobJ 6vZIduWvD2SBMzUuGpnV4 5qZUpDWuaLb1z rJyfeOkxDY2pSKKyjhozn 306VbVcl0gjJAQajCYnAG nzUXH8C80zs5T5POSoUFU vYLY1gHF6vA7v bGlnbjogbGVmdDsgdmVyd QtbWXqpOJskR934QPUbrN toUzJlhJYuX0unueVXAR9 lOjwvdGQ+PHRk IJB1bOvqVEukZFBenG6mR RXcX3g6ZlTfJfQ9GSqzD0 GdkqK5QCMvxKQqWISxsPA HeB9nfmylk3uf tsetBoQtHLDcMHt5AHy4F RWplUydXsUdQRD2AeX9FT D5iESzbQ5miQtgkomtoB5 wOyc+RklOOjwv dGQ+AJXiPPF7xFlkXDjcB RLzdM5gYCZrW4k6MoFbLq C7BYgnV3OcncZ4OHKnlAN jBWEurGZUnO4l rmntd3lqoipkJbJeGALbV Zz7NVi1KUTwoOtxKtKvGP W2XvR3YEZ0uLUyeL8khAy mihzlxT4gHwd+ TVJOOjwvdGQ+GGNzRJR0s GexMKfiNUNgaF4oGELoH4 j6EbAuKyF3FRfsL3WcdkZ 6IGJvbGQgMTBw yNYElB9jpwlle0qwfqnyB hBvYKJnADu4JGw4RSBpfS wsXhHvNDC2XyD4YDN2nYA igS4xqZwjsfiq vP4kXji+FQF3ZKR0KX72N S44B2YqFzhuoJPabSO+PH RhYmxlIHdpZHRoPScxMDA iQgPdgNjpWP4o Ym9 (more content not included)... [facility] Consent Formson 06-01-2023 Consent Forms [id number] Normal [facility] Inpatient Patient Summaryon 05-29-2023 Inpatient Patient Summary [facility] [address] [place] [address] Patient Discharge Instructions Name: TERE RADER : 1955 Patient Address: [address] [address] Primary Care Provider: Name: Dale Flores MD After you are discharged if you find you have any questions, please, call [phone] ext [phone] to speak to a nurse. Discharge Diagnosis: Prescription Information: If you have been given a prescription for narcotics, seek immediate medical attention if you have any difficulty breathing or any sudden status changes such as confusion and sleepiness. If you or anyone you know is experiencing suicidal thoughts, mental health, alcohol and/or drug addiction problems; contact the [facility] 12/01 Crisis Hotline -Text 4HAXT qi 946544. If you received any narcotics, sedation, or any other medication that causes drowsiness for the next 24 hours, unless otherwise directed: ? Do not drive a car. ? Do not operate machinery such as power tools, lawn mowers, drills, sewing machines, or stoves ? Avoid alcoholic beverages and drugs for allergies, nerves, or sleep ? Do not make important personal or business decisions or sign any legal documents [facility] would like to thank you for allowing us to assist you with your healthcare needs. The following includes patient education materials and information regarding your injury/illness. TERE RADER has been given the following list of follow-up instructions, prescriptions, and patient education materials: Follow-up Instructions Medications During the course of your visit, your medication list was updated with the most current information. The details of those changes are reflected below: Medications to Continue That Have Not Changed Other Medications acetaminophen (acetaminophen 650 mg oral tablet, extended release) 1 tab(s) Oral (given by mouth) every day as needed Pain - Moderate. buPROPion (BuPROPion (Eqv-Wellbutrin SR) 150 mg/12 hours oral tablet, extended release) 1 tab(s) Oral (given by mouth) 2 times a day for 90 Days. Refills: 3. docusate (docusate sodium 100 mg oral capsule) 1 cap(s) Oral (given by mouth) 2 times a day as needed if needed for constipation. Refills: 5. ibuprofen (ibuprofen 800 mg oral tablet) 1 tab(s) Oral (given by mouth) Every 8 hours for 30 Days. Refills: 1. losartan (losartan 50 mg oral tablet) take 1 tablet by mouth once daily. Refills: 0. Misc Prescription (GOLO) take one tab before each meal. oxybutynin (oxybutynin 5 mg oral tablet) 1 tab(s) Oral (given by mouth) once a day (at bedtime). Refills: 9. pravastatin (pravastatin 40 mg oral tablet) take 1 tablet by mouth at bedtime. Refills: 3. solifenacin (solifenacin 10 mg oral tablet) 1 tab(s) Oral (given by mouth) every day. Refills: 3. traMADol (traMADol 50 mg oral tablet) 1 tab(s) Oral (given by mouth) Every 4 hours as needed as needed for pain. Refills: 0. venlafaxine (venlafaxine 150 mg oral capsule, extended release) TAKE ONE CAPSULE BY MOUTH TWICE A DAY. Refills: 0. venlafaxine (venlafaxine 150 mg oral capsule, extended release) 1 cap(s) Oral (given by mouth) 2 times a day. Refills: 3. It is important to always keep an active list of medications available so that you can share with other providers and manage your medications appropriately. As an additional courtesy, we are also providing you with your final active medications list that you can keep with you. acetaminophen (acetaminophen 650 mg oral tablet, extended release) 1 tab(s) Oral (given by mouth) every day as needed Pain - Moderate. buPROPion (BuPROPion (Eqv-Wellbutrin SR) 150 mg/12 hours oral tablet, extended release) 1 tab(s) Oral (given by mouth) 2 times a day for 90 Days. Refills: 3. docusate (docusate sodium 100 mg oral capsule) 1 cap(s) Oral (given by mouth) 2 times a day as needed if needed for constipation. Refills: 5. ibuprofen (ibuprofen 800 mg oral tablet) 1 tab(s) Oral (given by mouth) Every 8 hours for 30 Days. Refills: 1. losartan (losartan 50 mg oral tablet) take 1 tablet by mouth once daily. Refills: 0. Misc Prescription (GOLO) take one tab before each meal. oxybutynin (oxybutynin 5 mg oral tablet) 1 tab(s) Oral (given by mouth) once a day (at bedtime). Refills: 9. pravastatin (pravastatin 40 mg oral tablet) take 1 tablet by mouth at bedtime. Refills: 3. solifenacin (solifenacin 10 mg oral tablet) 1 tab(s) Oral (given by mouth) every day. Refills: 3. traMADol (traMADol 50 mg oral tablet) 1 tab(s) Oral (given by mouth) Every 4 hours as needed as needed for pain. Refills: 0., OARRS reviewed on 10/03/2022 venlafaxine (venlafaxine 150 mg oral capsule, extended release) TAKE ONE CAPSULE BY MOUTH TWICE A DAY. Refills: 0. venlafaxine (venlafaxine 150 mg oral capsule, extended release) 1 cap(s) Oral (given by mouth) 2 times a day. Refills: 3. Take only (more content not included)... Normal [facility] MAGR Intraoperative Recordon 05-29-2023 MAGR Intraoperative Record MAGR Intra-Op Record Summary Primary Physician: BEN ZEE MD Finalized Date/Time: 05/29/23 10:41:27 Pt. Name: RADERTERE/Sex: 1955 FEMALE Med Rec #: [id number] Physician: BEN ZEE MD Financial #: [id number] Pt. Type: D Room/Bed: / Admit/Disch: 05/29/23 09:33:35 - Institution: Case Times MAGR Entry 1 Patient In Room Time 05/29/23 10:31:00 Out Room Time 05/29/23 10:43:00 Anesthesia Start Time 05/29/23 10:35:00 Stop Time 05/29/23 10:41:00 Surgery Start Time 05/29/23 10:35:00 Stop Time 05/29/23 10:41:00 Last Modified By: Alexandra Paiz RN 05/29/23 10:41:20 Case Attendance MAGR Entry 1 Entry 2 Entry 3 Case Attendee BEN ZEE MD, Erica RN Long, Barbara RN Role Performed Surgeon - Primary Bmx Rider Bmx Rider Time In 05/29/23 10:31:00 05/29/23 10:31:00 05/29/23 10:31:00 Time Out 05/29/23 10:43:00 05/29/23 10:43:00 05/29/23 10:43:00 Procedure EPIDURAL STEROID INJ EPIDURAL STEROID INJ EPIDURAL STEROID INJ TRANSFORAMINAL TRANSFORAMINAL TRANSFORAMINAL LUMB(Left) LUMB(Left) LUMB(Left) Last Modified By: Alexandra Paiz RN, Erica RN Baumer, Erica RN 05/29/23 10:41:21 05/29/23 10:41:21 05/29/23 10:41:21 Entry 4 Entry 5 Entry 6 Case Attendee Angeline Conde James RT (R) Leonora Paul RT (R) ARRT ARRT Role Performed Scrub Personnel Order Expediter Order Expediter Time In 05/29/23 10:31:00 05/29/23 10:31:00 05/29/23 10:31:00 Time Out 05/29/23 10:43:00 05/29/23 10:43:00 05/29/23 10:43:00 Procedure EPIDURAL STEROID INJ EPIDURAL STEROID INJ EPIDURAL STEROID INJ TRANSFORAMINAL TRANSFORAMINAL TRANSFORAMINAL LUMB(Left) LUMB(Left) LUMB(Left) Last Modified By: Alexandra Paiz RN, Erica RN Baumer, Erica RN 05/29/23 10:41:21 05/29/23 10:41:21 05/29/23 10:41:21 Surgical Procedures MAGR Pre-Care Text: A.20 Verifies operative procedure, surgical site, and laterality Im.150 Develops individualized plan of care Entry 1 Procedure EPIDURAL STEROID INJ Primary Procedure Yes TRANSFORAMINAL LUMBAR Primary Surgeon BEN ZEE MD Modifiers Left Surgeon Comment LEFT LUMBAR Start 05/29/23 10:35:00 TRANSFORAMINAL EPIDURAL STEROID INJECTION L4, L5 Stop 05/29/23 10:41:00 Anesthesia Type Local Surgical Service Pain Management Wound Class Clean Technique Details Closure Technique N/A Entire procedure No was performed via laparoscope or robotic assistance Last Modified By: Alexandra Paiz RN 05/29/23 10:41:22 Post-Care Text: O.730 The patient's care is consistent with the individualized perioperative plan of care General Case Data MAGR Pre-Care Text: A.350.1 Classifies surgical wound Entry 1 Case Information OR MAGR OR 02 Case Level None Wound Class Clean Specialty Pain Management ASA Class 2 Diagnosis Preop Diagnosis LOW BACK PAIN Postop Same As Preop Yes Postop Diagnosis LOW BACK PAIN Blunt or No Is the procedure No penetrating injury considered occured prior to Emergent/Urgent? the start of the procedure: Last Modified By: Alexandra Paiz RN 05/29/23 10:28:46 Post-Care Text: O.760 Patient receives consistent and comparable care regardless of the setting Time Out MAGR Entry 1 Procedure(s) EPIDURAL STEROID INJ TRANSFORAMINAL LUMB(Left) Time Out Checklist Verifications Patient Verified Yes Allergies Verified Yes Procedure to be Yes Presence of Yes Performed Verified Necessary with Consent Procedural Equipment, Devices, and Implants Verified Site Verification, Yes Site Marking, Site Marking Alternative, and/or Site Marking Exception in Accordance with Facility Policy Anesthesia Review Antibiotic Received n/a All Anesthesia Case does not involve Within an Concerns Addressed an anesthesia Appropriate Time professional Interval Prior to Surgical Incision Surgeon Review Anticipated Blood Yes Loss Risk, Expected Case Duration, and Critical and Non-Routine Steps to be Performed Addressed Nurse Review Team Introductions Yes Equipment Concerns Yes Completed Addressed Fall Risk Concerns Yes Fire Risk Yes Addressed Assessment Completed and Interventions Performed Skin Assessment Yes Diagnostic and Yes Concerns Addressed Radiological Test Results Displayed are Appropriate and Labeled Skin Prep Allowed Yes Sterilization Yes to Dry Prior to Concerns Addressed Incision Venous n/a Laser Safety n/a Thromboembolism Measures Implemented Prophylaxis Ordered Latex Precautions Yes Other Concerns Yes Implemented Addressed Time Out BEN ZEE MD, Time Out Time 05/29/23 10:34:00 Participants Alexandra Paiz RN, Marlene Lundberg RN, Angeline Conde, Colby Lynch RT (R) ARRT, Leonora Paul RT (R) ARRT Last Modified By: Alexandra Paiz RN 05/29/23 10:34:31 Patient Positioning MAGR Pre-Care Text: A.280 Identifies baseline musculoskeletal status Im.40 Positions the (more content not included)... [facility] Preoperative [facility] MAGR Pre-Op Record Summary Primary Physician: BEN ZEE MD Finalized Date/Time: 05/29/23 10:46:33 Pt. Name: TERE RADER /Sex: 1955 FEMALE Med Rec #: [id number] Physician: BEN ZEE MD Financial #: [id number] Pt. Type: D Room/Bed: / Admit/Disch: 05/29/23 09:33:35 - Institution: Pre-Op Case Times MAGR Pre-Care Text: Patient will be optimally prepared for surgery. Patient is free from s/s of injury. Provide information to patient/family related to plan of care. Verify patient allergies. Confirm identity and verify consent before the operative or invasive procedure. Entry 1 Patient Arrival Time 05/29/23 09:47:00 Preop Departure 05/29/23 10:25:00 Last Modified By: Anabelle Ha RN 05/29/23 10:46:30 Post-Care Text: Patient is prepared mentally and physically and is ready for surgery. The patient remains free from s/s of injury. Patient/family express understanding of plan of care and participate in decisions affecting his or her perioperrative plan of care. Allergies documented appropriately. Patient identifiers and consent correct. Finalized By: Anabelle Ha RN Document Signatures Signed By: Anabelle Ha RN 05/29/23 10:46 [facility] Patient Handouton 05-29-2023 Patient Handout [facility] Progress Note - Provideron 1 07-28-2022 Progress Note - Provider [phone] [id number] [facility] Coding Summaryon 05-20-2023 Coding Summary HTMLBase 64 KxrkwcmuXEc9fMx+PGhlY WQ+ES9PNMHwX23weAQbaG 2eS6GHAZjQXdizWAFNWYg MRfMwsyFuZW2ysBViGHFk IC8+XF4dPPUoMwjybWByo 3K4nMT5M00loj0cLHobvT S2AYLcGyHclzjzl8eipNo 6IDcuNmluOyBt QFFyyV42SAN8qV37Vi80g JDakMBzw4iyhIn6LuQbDT EwUCQ5aYorNWlgr6CjMYX oH14ivZYvz4M3 SCOwwHobdDTpOnZdkGG1a Z3rHToicjfnz8oqjrsmYd s0ll54gNViz9N8gEJ6X5T qquO3UBScuWYz TrtfiFMPgY6smkndw2ufy lqwIuViUQLeLBf2NMq6TM BksTthLhZlLR97NHK7LZV reaTpO7EbJVTz wYznFyF2v5U8Pz7EZ4AVK ehgY6OXACUTNNzffIS+PC 54ld92G7ItRfdhMfg9DSK wDKR9aJH7pC0z FHInWPpbz6E5vXN1J3Ljm bDrtl4nu2lrFJPhMVpkC5 8rhIMas0C2MBAqeUS6KIU eoDmwNvOwuJ63 Oyc+YPCqmOncc2VuQjwel 7jns6masYm9UsubVRTtgg JdkZqcPVB0q7ZvZd7hZMW lpVM9bVG6tP5z SkDaVaX4ZZouL210DmPxl RGdPkwgX30nB4BfuDI+PH MeQnd8EGIjmXwoMI8iG8S hZGRpbmctbGVm fSxxXM8gNOMslklpQYSuq U2rNUCeF2b9XcNbKnW6TG vcV7TwQDIuqqwmXm82fS7 eZcTnAvW9YOaz X0WnzkJ5FWZynWQaQWiuY PM2N87rp3M8KELgOWWbJY D6yVV6lG0qhCpdoorttLL mdDsgdmVydGlj PJmzVZsmF152MXWbkVnxB kNvZGluZyBEYXRlOiAgMT EvMjkvMjAyMzwvdGQ+PHR oYER1vFzbBPQp oJQfBUnbDn1wqAquaRodO Z9bUPRhmfsqGUWcqS1pFH RbzEFjeSwnEF1pKDCtaob xq297RqKoQFL6 JQHqpPHnA8FceE5cHoTwM AGaFOLeM4DsjWEmDLssA3 04CBvjHrZ2BBBlclDzR1X sLWFsaWduOiB0 k4S8Kt7Ff9OcjvpiN4Qpu XXhGfQyKddfLBz3D1PbQt wvdHI+YX02YIOtVL85ACb 4CGI2lGfqHYzw UAElQ8NsqB3zLxNyKVWaC GRkOyc+PHRhYmxlIHdpZH RoPScxMDAlJyBzdHlsZT0 zRm4uTWKqOCJg aIgxaXQoOkIoy7joYIGmQ PulEL7yiGadV0NoxOP5GI Qnm8n1Zt52M77uC7AclRK +IYOrdXA9jUZ4 zK6gXyOvCfO2OEkkV261T aAcgDTpBxufq6olm3purT r2VcU4CZJhkvCgjTtqKLB 3s1AsAh46J31f IHdpZHRoPSIxNSUiIHZhb Aahze9wbJ5aVe3+PGNvbC A5qIJ4jS9dKcHoXjS9BAy tZ606EsUlaESa Rasvj2fvf8obiRu6IdAxE AXmtuJrwIvuSYQ2u4TeZs 64T1JuxTvwe6PlKfw7hu8 6sTDep6M0pZZ4 Z1DaZTInpwtxaRRyxSrlG K1iRZNxerxmMBLalN5lNS RbY4p0PvTwScC2UHupP9X typK5WOCxaLSd XJWonLLUwB4primtr0esw nnqFqUxPPYkQRx4YFz7EM NdhGkiOeXoPOB4ZcO6CIL 6lMEojO6jmRae uvfuwC8gUqz+IXL5oWFhg BXYHM7rYaofjKW+PHRkIH L3mVoeRQcvDKCosH6uSZV uR2k1NyIxCvX6 KMbjV6AtpeF9ALGhuOWgC PFysZOZxH1fygqga3gopb yoPzJpRHXaXDl7PDs7VRD saWduOiBsZWZ0 QoF6FWO3qXAehU7pxIsiz hraxL4lMcl+QmlydGggRG G2WWo1T4VkZxj6VOPcrWy rOL5teRPpCGls Kz4doAjjwVgpND1cLFDnp kgbv748AdOqa0nuPHMcqO SiEBljLPV5A86tc9V4DYD gWZJrLZV3mGD0 hX1csJyunoayfQPcnRjdj yNbmZhdAFjxTAayY675QW PtnIqrXkDwEAp8N5EhVpd 6ZERqjNwcCM4z bLIwQLhpJh0xjNtuaEtrV U0hPWTgbpulw791HdRyk9 toBZKppIMqJIydSUX7L37 kk5R0RBHkEMWz QTD7iVR2xZ5lbPahrsclb GVmdDsgdmVydGljYWwtYW vpV537IPCiyDgqXjMdtLs 7S5NyGes0RLFt aKxsHL5isQJmNOvzAy3ii DgwmGxvIM8mUKMgbnugc5 24SmCmd2gaEFSfbDHxBIs mXRV7G54hw3F5 WDCnWKBbLKY0fGY5uB8ux GlnbjogbGVmdDsgdmVydG tcBJfuMTpsR195GGXsgCu nPlBhdGllbnQg KNvfYLc9Z5KqMfzjcTB+P J70GJHmUR44dQKexYQto5 vkvVj7OpQmRYOuPLE2hGq lOOsgz4JcXEOm P60dmNZyq3H1NCXmzMpzk LUpUlKvhRS2xV0uTNdfmd pcm6tgvllzGppsk7vmzf1 4sB12K13kKLbz ZHRoPSIzMCUiIHZhbGlnb v7emQ0yUi8+TXUkuZE1cK L4fG6bHVEqVqU3LYsrR65 9InRvcCIvPjxj n8esy4uolNm2RcI2XHGny sCubXfvNLB7e1TsDm45L8 9sIHdpZHRoPSIyMCUiIHZ vpGhlkc0dcB4d Ii8+KDPfuWS6kNB0kR0zX qGxIkH8KLsfB574EuGlaB HoMmnbV40rU6HpdSM+PHR kLkf5QXXxhTeb QB9pjYWcGLwiJb7gNYJ7V kSuKbJpWIyyZ0JfJUDirt moowboaWR6AUCuUNWgvQ5 8Us5xdGsgEAGc uKMDgT8qeqtfu2yrdufjR zJdEKUoWDc4WSb8CQUmiR wbZaTbDPQ0EsS8GPU8eSG mjO3qlUakqfec iA6hQ4SqKROiqqfuJl93k L0hHyBgAzZ0DIlyAgw+V0 2GUjUeDPjCVJxGLW2rFNd PKiLLMJGBXU65 MP24cLLcp5Z6wQR6L2TeJ NJildwopkcoiGL3VKYfCE EhiL33cRJxYDiqBb9lz5B 9w920ZEQrYKCi iW39Ql6ooFyyIMOqrWYWc P6xoofrx5cjznbxSkFbDE MtCEv0DAc3FHBwjXgkHgE nRGD3YcL5ABN7 gBNcbQ7amZkpipoedG0kY yc+TXOhHXSvHVd4RPwaiL Q+PLItKBE9zSnyDQkuSLT hpY3iBGNxQ2y7 YrXsCkW6PDasU7OhVBCoo zfvWc49iA3qDgMkSfY7IY ihN0VjuzG1GTAvjDHjUEn zHSN2V15ki2P0 QNMaCTZhTPO2tQM5tR8dt GlnbjogbGVmdDsgdmVydG gcKOimGIuxS525IQMnvPn cNxJ3QZllWPEf IX40CR26uMYtj7J8uZE8U 9OrHNEehsjzcjmiyBX0JK AzLJFxqO65aCVcTTkoWc1 js8R0u246UPNz KUErnZ54Vn9ujYvcCZQpv XWIxN9tclgat1fwphckLy UqKVMhQBn6QTh9SOVopLl nLvPgTWF9RgG4 WWW8rBYlaF6xpSldffcru G9wOyc+UyWKBEcURQ72BX 70dMCgw9J2dLU6B2GkOLS pbmctcmlnaHQ6 FPKmQKPbbU56zLHtOUtpM h2wf8Q9z021VKNsJSWdgG 95Fv4fsBlcLDYimYASbP9 coshtg2kbvkbk PuEqDDKkLIc0WMb9PEAwf OdxVgKaWRR8VvT1JIO4dT DmkG7apUzjeuehoW1bHvs +H0G8V9LrUdip dHI+NJ03JMHoXD90aLGpj CZwd2gnpXx6QuChMIKyLS C1vEgkQSlnf7AsPFPlL70 xlMLvv8P7PDCb qChplFNqUcMmpZR7dG6nO Wxwgeddo4fgskexHiqrd3 wbal08yO67C47jGReqAPF oPSIzMCUiIHZh qBhphd9xhY0eCm5+PGNvb GS5uCU0aL2mKlNnYiI5YC cqU742YhDdqWVgPemcr1g sc9lsbIn9UpVg OROkgkRqzUhuJFA2d6KlS f48T19lWOwwAMOqJCEuWO LgGQYvlChpsz4gfO4dYj8 +MA8tv3radl66 xE84xYX+IDHoSLZ4eFisD XwvVKBtdR5qNVegCfC1BH QkWmMhqR33tITtNRwbJw1 upFlcxRvmAV1k SWTtiguqc006LdKun2sjS QYjaUGeZYjrLWL8D80mv0 D2CWAoKSKtXKP6uMX3hL8 hbGlnbjogbGVm dDsgdmVydGljYWwtYWxpZ 843YFLmvPvfMlXzpLHcD7 lernZHDX1lWxnlsDR+PHR tDHF5yRonSEpj BTQkoG2nWRAtA0m1IhJvS gE9HKdwH0IckiN8QEKuqU FpYRWcoJRThO3gfbdnu3m vcjogIzAwMDAw NBl0BIx6JEIpkDklHxLoW WO9JkH4RWK8kCHufV3qgT xaugywtS5aRbc+RklOOjw vdGQ+PHRkIHN0 sApxYBzuAZKgxZ9hQQGyU 7y8EnEyTuZ6DNowP3Erce D2NCCwiFErQWTtrHPYzK3 osiwbc4gzesfe OmBzNHGvYNx4SZg2GJBrg PioSyVgRVJ2WmC3HFV0jK QhoW0hgYrhiykxrP9pYcl +TVJOOjwvdGQ+ WSVaPQQ4nMetCIfsSHJdy Z4sMJHrV2m1BtDaUwT6FW knX8YjteB3XGHgmXKpRHV qdMXPxT6kgfsx c1kazbnnMgEiYTLxWWh4Z Ka9LVLocDkjSgZxFYQ2Ql H4ROB7pKIdhQ7pzQladuf mfC0aMjq+UGF5 ECF9FU86PS11N4IoAspme GFibGU+PHRhYmxlIHdpZH RoPScxMDAlJyBzdHlsZT0 zDq3oDFBvWIOd bGx (more content not included)... [facility] Coding Summaryon 04-29-2023 Coding Summary HTMLBase 64 OfbmmhvrOFn2mOd+PGhlY WQ+SK2CNEGkA86ggUTsmN 9iU2KBVJdRHrneQGTQFTn DByYpfyXzBX2jkDNyEBYn IC8+IS1pHGOuUwhqjDTdt 3M7uOW4F80flh5nLIjyjY I8MBEoJnLtebhub4ghfFc 6IDcuNmluOyBt XHJgoC33PNQ6eC70Ny30b RPbaYIqb5ovjAa0ZtKbUI DwTCR3rVfkYHcqn4NtSLX vQ63zkAJvi2P3 PNQjkSjrlJKrZnGfuJT2w B6xKNqdrgxew1amsodnAw h3xk74oQRkx7E4lNJ9F2I tdiH7OXGzuERh OwjmhGBCfT1xoavgp7ytt ogyGgNiAWGsVXd4CGw6PJ DodAciThJgLT99AOQ1SOG eahUqV5JoKKAi rLbmOnY5y7N5Bw0HN0ODZ zfuR9WUNUIXOIqlqDO+PC 85lc94N2JbHacdDmw3GVE vYZF5dMT9uZ4a YNWyEHawa6T4uYH4J7Syg rSdeo6mw0zoQBTmCNzzG1 2idDQkc9S9GLStpZC5PGZ oyTvvWjWdaT35 Oyc+IYHksQqfk2HdSlvai 9pzr1expUw8VrliFDGcnu GalYgeQSB8y8OtCg9kRWY fsKS4aST4aT7v GdRcTiS1FKwqC010QkFgy VEiEbkiA90iL9FixTO+PH MeUwp6BMYjdDltJT6rS5T hZGRpbmctbGVm xTpxPE7lFHEmjmutXXOls A2kCMKkF5r5EuMhNxW0EZ hjW3LrBQVmjctvKe13qA2 nUcKnBnD4CEsw J0RrfdA1RDZtoSPkGHayF IA4H68qa1B9AFLlAXDlJQ V5gJT0aW8egJvhbkpilPI mdDsgdmVydGlj QGapMMldB754MBVbeMrrR kNvZGluZyBEYXRlOiAgMT EvMDgvMjAyMzwvdGQ+PHR xUYO3bViiFCHq eMUqNPbxVa0ivHhlgSnuF V8jELSaurirKSSsfY2gDY XrkFGhwIibUM9mTEMzyit wp715QfVmOYP3 QJVsoZKrO1EefL8pDlMsA BFeWVWrU1ZyeGUtMOxqS7 08KBfvQuQ5CUVedpHsU5R sLWFsaWduOiB0 m2T1We2Ow5ZzpcgyN5Cgo QUzFvGrCjhzETe6O0YzNq wvdHI+TR65VDOoND07AZo 0KVY3lZjhUCpj HMEgW9InsM4vDlHzIRUzC GRkOyc+PHRhYmxlIHdpZH RoPScxMDAlJyBzdHlsZT0 sSv6zYJXwRMUw vSnksAWbYkUcc1hzRASsF UotGD6sbZrdW3MyoOE9RM Kpp1v3Va86J66jF8RghNX +NYEtmXD2iIR4 hK9hCvBhDgA7OJnbW594M qMnkGUvLucus5dot6fmnV j0VaP8TCKdutOoeJkfJYG 3a8BiOu15Y60u IHdpZHRoPSIxNSUiIHZhb Pleuo5qmR3rLg7+PGNvbC P7mDO5pA9dTjUiOmD3NGk aM429UcFctUXy Ardbs1duc5smmGy8CcEgM LCaijVooJtnKTQ7x6OcJw 42D5YpxLlad2IzEjt3ys6 0mIDza4F0aGZ4 C5FhXQVhvstbfQPhvYbjD Q1bFBFfflwqDQNdfX0kAM QsV8l8ZdMvMmD3XSfhA7X jmzO7ZFRwhTDc USUuxJSOqU8uwgvfw1cub lydSkFaOUAwGFn9ZNb3NO YqiPgpRaHwPFZ5BjS4GTJ 0hOIfjU1upWlx nuevxC3nBze+QAV0oULui BZSNO6kHexfaFH+PHRkIH T8rIvxBMsdHJOkyH7hJYC iE5y1DmReAyC2 ZJgcK7OwhcA2XJCgqHTbK URvuJGMtB9oecncs7kmer eeTqNjFLFvNZc5URr5LWH saWduOiBsZWZ0 IkL1QNS2fNApeO6aqEtkg aunvQ5wYtw+QmlydGggRG I8WAu0B0RlKwz4GTYpoZs sYJ2dkXXuZKog Vk3hpGddcKctVJ2lGRInx glhh114ViUbr1tkOGMnaQ NhKDgoWON3Z45ys2W7YAO xNVTwFNF6nXO7 rR3ttKjhlumrcBQiwEsjj pTclEsvEUqpMXloT095UD MwjLqyLuRqUGb2R8TvUzl 9VYSwnJglBP3h gSIoWJdxRk0vuDljgKzvH Q3wAYQwduzbm573MhWtu8 xmECDqqHPbZYvtPDR9M65 kk5K4TBLcKIJw XYC3gWQ6uK5ssBrjrvhdn GVmdDsgdmVydGljYWwtYW knH314BCBbrHfxPkJokMc 7M1FvBts3PSAs fKfmOB0phCAoOXskPn5eb OzmtUvoKX9oKMOdpoysf1 09JbSxl2vvUIWgcRKyCUw eSCM4F56ur7Q7 EAIdMSEoBVV8uDI6oS7nf GlnbjogbGVmdDsgdmVydG acIWdoCMkuI564UOKvzCb nPlBhdGllbnQg XVylBZp1G5TaDhgqjWB+P C41ULZoVD78bHUpbPMng6 rljDk4DyPzBYLxCTZ2fIi uSUxms9MbCYSd V86bsPSvd7S2MIXooGqnd UXrPuCmtPI1wT6uDQftpr frr1gabkcvQcsgy0ikqn4 6dL59I71iGHhf ZHRoPSIzMCUiIHZhbGlnb b2meZ8dAh3+DBKrkFS0qZ Q9aQ7nGALmYwM0ZQoqP05 9InRvcCIvPjxj h2glh8aflHv0WtU4QMAxu lVfdLtiTYL6r5XpFo13B3 9sIHdpZHRoPSIyMCUiIHZ wpVjkao4kzP9f Ii8+VJFmbDC8aWT5aG5tB tOpKgT1UGjlW170XtTxiE PyRydmN75xG0QxsTC+PHR fObi5LPHmeIcq YX8lhNUeTDqhZz4fCYF3B aLxUdXlKKcrW1PtTIZptk qrdyrmuNC3IXPlINJzsC4 4Cy4wbCtmDMJh dYCQiL6aipzbl7uacqloH bTyHZDxJXm6APm4FUSicS caGuGzLVN6WcE1ABP4oCS loX2qhUpdlrpv jO6mK1WeQBJszdxhNb49a V7hVjAvBcO0VSxhUrr+V0 4GXbVuNYdSYJnHLX9aIFb HVuILJIIVZQ64 II34jUCrh1R9pHA4F4GwB NFqeikzzxvgoNP4MAGfNG YxzU92aAWeJUajTh7wz5K 4c266OFWeGUMj iB36If2jcBwrYTLjuDPAs O0wtjsyz2nvudtoElDvRU TuRQy6JSl3LPPhhTjrZoS sLLE9QvM1NVX5 wIWywK4ttJartuwhaS1sG yc+GAVjLAQoNUc1XUcprT Q+ENZhWAF5xXufYWkqDGV ukA0fFHVvA7p6 JhWhWaW2YAzpW5KpAYIhp vqcHq52kJ5zAoMvGrQ7TR ghN3FqopW5YBZjuDSmKLh oLLP7C66wo0O5 GEEaVZTaTYA4aMN1tD5kh GlnbjogbGVmdDsgdmVydG krFOlyDAvuA177CMRquUg sNoU3ZAhiIALy IV93ZE99bGOgl6M5yYK0J 8SbAJKkoztngftgiEA2AJ JrGIMmiC52pMOsFQexDl0 cv3Z7o640LGEi YBUhsR75We1cfTvjVSOhd JEDeY1slnuxp1pwptzuGa YvOYNdNBv7WIo9IAUdrJa pTiYrLTX9GjP9 AZF3uYKypB2gkArxgtjnr G9wOyc+KzAEONtWYD15LS 75hKKgg4O5hGO9N6CtXHN pbmctcmlnaHQ6 LGFjRGJiuB94rWWoWRqaM e2kg8N0x651VYUiCWFegG 84Id7pzMmpIJYvuVCHoD5 chgfcf6psfgco KhNcGMEvNWk7WVi6DUNle JhlVlCnHKY1DzP7QMU4wJ RfvZ7dtBophsdjeZ3oDgt +H1U6F7SiBlxu dHI+QQ32GDElJB03mJGcs HKlt7zksXz4NlFzAMJkQH W6vDdeOIefn3RhVSAgP37 qjCDxa0B3BVWs tUnuoBDrIvXjcAN7aX3bD Kkdrylqo6mdogxyBmblk5 zekx23kL69M28qPAnqSNA oPSIzMCUiIHZh lFbdcd5eoP9iSw2+PGNvb NA3aSB0hB8gNjQaPeE2BZ jdJ320JnIqhPTdAsxdq7y rw0ktqWx7VzEe UAHhfnCrbIhhSNR7r7UiR v52A49lCQlmGLScRXJiCP VfEVXxvVzwpj2lpS0xHf8 +QN4cb0qkei77 hG83mSX+ZCEvYKW4nTmlP KfgWUPktB1wDHycCeB7AR AeRlPswT53zMSlQQnrHw5 lwNgmlIjuXY8a DLRwvakze664ToFcl5cvA MOziUNeFClrLSW7U87yj9 Y9NMQsQRNdHMP5xPC4sV2 hbGlnbjogbGVm dDsgdmVydGljYWwtYWxpZ 719GSKymFowAkYdtTFhO7 mjymBPFL5yLjcikEV+PHR hNAJ9kWdmTEpt OLUygU8mUJElF9g7OqAxL vW0EHbjV5PbtiJ2CPLpaD SlAXDwjPBPlY0ugmejj9o vcjogIzAwMDAw DYi2XCu3TPFivGfxNfEaH QB3FjR7USS6uCVfxZ9cfD vptkjtaI3fBdj+RklOOjw vdGQ+PHRkIHN0 aNogDEpkNBRyuK1oWUSpS 6d1UtZgRsZ7NLdfQ9Omhj E4BCEenMGxTGAlzBSEqD3 qvbydd0rogbzt FrRmLTBhJPy7YOc3HQCdz JwvNdYqZCU6PvZ2NER7mH DzcO5ofCdnghxbhW4dZzi +TVJOOjwvdGQ+ LLAoHQL4rMkdEGgiHNPcy D9dOUMeP7a0ZnByCgD1DA saE0GujyS9SUXijPMjUVZ goNVVvX1ncwux j8cdsucwQpBiBACkJQr0E Kj7GVAlgZxaPoGxTMC1Fu W3RLY8pQDjyT6uuWfazan mbZ2jXie+UGF5 LWK6DP05WO28G0FgKplgx GFibGU+PHRhYmxlIHdpZH RoPScxMDAlJyBzdHlsZT0 rCr3gDCTlLYVw bGx (more content not included)... Normal [facility] Rad - MRI Reporton Rad - MRI Report [id number] Normal [facility] MRI Spine Lumbar w/o Contras ton 04-27-2023 MRI Spine Lumbar w/o Contrast HISTORY: Bilateral lower back pain with left radiculopathy. TECHNIQUE: Routine lumbosacral spine MR protocol [WITHOUT] gadolinium. COMPARISON: Lumbar MRI 04/15/2016. RESULT: Counting reference: [Lumbosacral junction. For the purposes of this report, L5-S1 is considered the last well-formed disc space.] Alignment: Slightly exaggerated lumbar lordosis. Alignment otherwise is essentially anatomic. Bone marrow signal/fracture: No evidence for recent fracture. No pathologic marrow infiltration. Posterior decompression laminectomies at the L4-L5 and L5-S1 levels. [ ] Conus: [The conus is within normal limits of signal intensity and morphology.] Paraspinal soft tissues: Disruption of the posterior paraspinal fat planes at the surgical levels. Small loculated collection in the posterior subcutaneous tissues with hypointense rim, measuring around 1.7 x 0.7 x 2.7 cm, nonspecific, probably representing chronic postoperative seroma. Mild paraspinal muscle fatty atrophy. Small T2 hyperintense renal cysts. Lower thoracic spine: [Visualized lower thoracic canal and foramina are without significant narrowing.] T12-L1: [No significant canal or foraminal narrowing.] L1-L2: Facet degenerative changes without significant canal or foraminal narrowing. L2-L3: Facet degenerative changes without significant canal or foraminal narrowing. L3-L4: Tiny disc bulge. Facet degenerative changes. Ligamentous hypertrophy. Mild canal narrowing without foraminal narrowing. L4-L5: Postsurgical changes. Canal appears decompressed. Broad-based disc bulge. Facet degenerative changes. Moderate to severe right and moderate left foraminal narrowing. L5-S1: Postsurgical changes. Canal appears decompressed. Facet degenerative changes. Mild bilateral foraminal narrowing. Sacrum and iliac wings: [The visualized sacrum and iliac wings are within normal limits. The presacral soft tissues are normal in appearance.] IMPRESSION: Postsurgical and degenerative changes of the lumbar spine as discussed. No high-grade canal narrowing. High-grade bilateral foraminal narrowing at L4-L5. Final Signed (Electronic Signature): Sp Stanford MD 04/28/23 2:59 pm Technologist: [facility] Coding Summary 04-10-2023 Coding Summary HTMLBase 64 PgdbplstFLg1sYt+PGhlY WQ+DB8RSMNbG44qhATulY 1yX5ANJTlRFnyjGATAVZd YRkHrdyNxYI2sjHKoOGKr IC8+NO4hXMCuExvrjEIcj 8H7aXD8A36vqj4lMMcgmZ G9VDXwHsRcesfkv5lbiIz 6IDcuNmluOyBt MQFrmN12FIP7pL04Fj38k ULleRKep1oxrAr4GhUiNE XqFDT4vFdwKCpdt0HrQQA oE20wyDDvv8H3 WWMadXltkYJhEpSihTD9b Q0aKKvpvdcbc1jyizflHp m9ye08vDFvw1C8mKS1X8I qtiM0YNKxjYPa CyxeqCFOhD3eswttx6pbm iywLoRaYVSbQMz1KDt2VD LfcBqyLyZcIS39VSP0ZUY wnzGsY4ZdWFSc sLzuPyK7z6I6Bx7JU0MMB zziC1ANHPHYLNbwbXE+PC 60jt53Y5CcIvswFwx5LYQ eINE5nYE7tA9t YRSrHIyvh9B9uIK0V4Agg wTyoz6jj0ofEKNlCWqjM6 1tvWDtz6G7RZBdlLW6YBN lqHhdCzWzlN81 Oyc+OUUerSiiz0TeWyvcc 8pcm2ouxUz5NncpDMMkfo GzlZugFCA9s0DsEv5fDIG kkNA9qRK3pU0k LaLqGpZ0WCwxE870PwHmd PDiRwqyV02sZ7VowDE+PH DpUpz2AOOemOleIX1sH7P hZGRpbmctbGVm fVpgWB2bWVGhmitiOQDml Q8yKVNaU4o2GfJwCtZ7PZ msE9ZlYQJeuoylBj72uH0 hDuYcYjT2QZqw P4MugoT0FVRwkIRpJHhnS GP1K04qj0U3PCNyPMPjDR F8eKU0gZ9uiNruotxgoDI mdDsgdmVydGlj XCrnMVdeE657HWIvdZyfZ kNvZGluZyBEYXRlOiAgMT AvMjAvMjAyMzwvdGQ+PHR jUBH0lPkmQCYh jHCfLEeoCf1znHkozXviU J9pVVBtkkdnKAZezE4pWD OwwAAcjSlwFP5iJRBdiqy nb853XqLkPLN1 CECqqLSpA8SffG1xJuUaM SYqNOLlS5NquGPmTJrlA7 43CTfzBbE7HCRcojYuE4K sLWFsaWduOiB0 p9L9Pe1Jd3YidetoZ0Oqv RXiRcLzFxlxJNr0L8XvYs wvdHI+JD89DLFeTJ49WZz 3BKT8lYnxWUqx VROoX3DtxI2cRaUdNUViA GRkOyc+PHRhYmxlIHdpZH RoPScxMDAlJyBzdHlsZT0 wSw5kQPBmZSPx sWapkTRxSgQcm0rfGHDqF BbuML4ylJdqI3GvrPI3MH Yuy7r2Au84G81rL3OvtXW +VZMnjSE3gWO5 lU4iTyZhWrD3JIakI392S rIhnKUjZllxm4opb4qzeO w6AoF7UPNranBjwGofFUI 8c2WkOz86O77x IHdpZHRoPSIxNSUiIHZhb Wlihe7aeR1qLs7+PGNvbC D8vBY1iY8dGxWcPdK6OPh dW253YwUmfFBi Ifagz4csj1pvfRk5KbJcC MQeorTumPwpOWG6s5XyQs 64G5WgvHsow9XuTwo3ka6 5rDWor8Y7vEY9 D6CeXVRsobbniUPgxUfkT U0uMUEypjlrQJKpbQ0dEF OtY4v8ToKwUmO8YLsiB5X whtK5XIXztWUu TRGwiRAJyC9razvvc9tib ckhWeQuICTuLMf1ECb6ZA PjvZoxFqLiDJA3TxB5QRH 7vYGpfM5hjJxh pykdpP8fVhp+ZKS7zSGlj BYMEK5cWwyrvZP+PHRkIH F8bTmoWOopORXysA8pVDE dH5f6HrOuSrE6 KPwcX3DyobU8ZITnxUDyI UIsgNAQsH1whntmt0ptzo rvKrUzLMFhCOt9UTg0JWH saWduOiBsZWZ0 UpL7TVH4aFJeeK6ebGdmu dxtgF9iMju+QmlydGggRG W5ZKb2L1LiDkj9HJKozLb qQP6iqADgJPpc To1exPoglTffWF3dLDMnj rwlo528ZfQjo7jmIVFjvS YeWXxgCXP4X54bb3O4WDI jHJOrVRA8qGP2 xY2dmFxvarhqoYPjdWozb nJtcAgzKJnaYMiaK117XL WufUaxBjZgRGc0F2FqGql 8NPBmxIkaRP3c mIQjXSylGd6djWykzZxaH C3nKCRpgbzcj708XhCmv0 joOJEyiKUkCLeiTCJ4Q74 bl6M0NUMnASZn QPK7fZN5qD3uiCaqizhkv GVmdDsgdmVydGljYWwtYW wsS916XQDdgUcuWaSgxXn 6A9GwQan7WIVy sXfaBR8vwHPpYVsnPg0st RcavByxTV9lFJFyfvjqf0 22AsIga3ynJPZxhZCvMYb vVJX1C96lx7N2 EAIiZZZtDCO8qPC4sH2it GlnbjogbGVmdDsgdmVydG fbTQdlKPulK066CXOcjXd nPlBhdGllbnQg PQofVFu2F4AuFnphdEZ+P L66APUoJI36yFXmzDZsp5 jdeYs1IrVsRHQxREN9yIk kEHulq0PnURJf Y48qrEAgm5H8XBHmgAadv OLcKhXloVU7lV3uCQlfys mec2wgkhhuFjyyr3mvyk7 4lZ90W20dGYvd ZHRoPSIzMCUiIHZhbGlnb q4umD1sXn8+FSTzxJB5dY Z2uW9zYQPzCwL6VMxcL69 9InRvcCIvPjxj y9iti2xegRt6ChT9GZNbd wErcEwhWEX0c5CsYn30O3 9sIHdpZHRoPSIyMCUiIHZ yzDovkq7rdA3x Ii8+GNTcmJT6rIV3oE9cE aJzEvL6DNmtC728MgVobQ KuYloqC78sQ9GzkFO+PHR hJdv4HBPajCxw VQ0vsLBwCSaoEn3eUXE3I pKfAyVuPZacC9VxEVQnph nvqhnqpUE3AVIfNSHpoP2 3Bt0dwAfuQAKe iAGDwV7fnqouo1okmnrmL bUpKRWtWCv9RPm8PYCcbE ymAyPcSHW0RcS4JGG5cZK lqZ6bkIzkxhru yJ6dE4KuSNAykoujTy74x X1zSaVeDvV5IXdbFag+V0 1TElXhBPqLWJxDCB7zFVv ONjOAOEDNQP91 YK86kOKfo5S9fAN7N9YfB QEmldcbxyzfcUK8KWPvWG HulJ04fDJlFWhwRn0yr9M 5s007SIVtYTEd pZ81Fe2zdYwlREZyrWPBn I8aiwbfa7ywoawjWeIqEQ EgHEh5DNf5CODiaLrwNyM gTPL8GaV2SEV0 wEJzdE4erUvkqtjkeJ7rL yc+TGNiNQVzPFz0VXywpM Q+JKXxQME6dWahVEbrLPG bvW2cWKByF2x2 CbEjCrX4AGxwZ7YzVYSdq vixGd41bI0qEkVzXtP9NF jkC8ZelpM5QNOsuYXiIEi aDEN3B10cu7L1 SRKbFLUqDKO8mOI0cJ4kw GlnbjogbGVmdDsgdmVydG hwLXdpLRmiD512DZYteFk uRrI4SYtaUXXx YD02ZR98aMBye3Z0lSC2G 4FkNTXukacrxjnpjBY9RL UqAYIsmL73oDQtMPwgEh0 pi6A9l303KWLs ZRBfvM96Nk3epZjyATAzq URYtV5wdrsva4iuapbvCt TvBBDpPJe6GUd2GTZzkQx zQwDzMGK5ZnX7 RRG0eNSwkR4epYsftqopg G9wOyc+YmLULNzEID37OD 05hPVdd1Y8pIZ8P4TvTBD pbmctcmlnaHQ6 CXJrVMXjtM45rJZcOXufM q9gx1B7t030BXXqSPRlqC 87Hs7emKeuQOMqoRISjT2 sdbbzx7cmpumc OtYzWNFiMGv1DJx2TAOjy RjnMuIjZDZ3IyM8QBU9nA ZarJ3zcOynlbqxoU3lOqa +A5K9W0BjNerb dHI+OP03VCJuYB77tWSwf MFjq0zgrLm5QhHtGLElQO U2rLxtXAvfl5RnCUJzX65 tyJUnh6H6OKYm eGrzqNVoQoTscCG2oE8bZ Fsfasehy0jmwmscFbcem7 jjny91rY39V47yXRjkHFQ oPSIzMCUiIHZh rFzexq5zdG5yJl8+PGNvb OE0cKT9eA2sZuSzXwF5QR oiQ146AwEghCNsThmve2l nx6fjqTc8FnSq APYlreXsqQwxJSA3q4XlS u54I69jVOjiGHWmIWLzJV DyTCFktAlplg5drR6xAp0 +DG8tl8iamk89 tT61pOI+HAReMXW5wYtoK RdcBOZkhQ3uXPuwEvT9VO IcUhHwcL13nJLpAJsfJu2 mtYwjsXfaMI2x LJDskvftz370RsRut0jmW ZWhgTHaSXasDCK5R78ab5 J8UGRtCYVmWMC0qYW4fM8 hbGlnbjogbGVm dDsgdmVydGljYWwtYWxpZ 138CEHphMlrCiNswEMqF4 gtqyVLHH1kUzmfaJG+PHR jHAS5aKirHPzy SVVdtU0cVTDhI1j5OvFzE bY3BRomS6IrnnV5TFNdrA JhLVUyiAEYbD3ximuhn1i vcjogIzAwMDAw YQi9YTx9HRWwvIeaHaTgA YG8CoH6WBH3xXJoiP8arK pakgrfkO5pSce+RklOOjw vdGQ+PHRkIHN0 tYwuUMbbKXNpeQ4hBLHxY 2u7KvEtJuQ6ZGirM9Kems A4SZOzvBXtDGSnbRBRpW8 ujbdye2rpoghr MqIfULEzUKi8DCj3RNTqt IxbQhKfATJ3XzQ0GVM1pZ AwlD5skYzmcykrfS8cJqd +TVJOOjwvdGQ+ RRLaKHE8tWnnAFrzXKCfp R3rAVYgK0l1YiXhOaD2NH pjV9MbuwZ4IHFlmQGiDJF afVLPfN7qyajp b5nnwbygSlTnFGFnWHs5M Iy0KJDlnRirWxYdRFJ8Ge A0QSL3eUOtrU9kiZvllre bwC4cGwf+UGF5 OAK6ZT79AA93S1BaJkqvp GFibGU+PHRhYmxlIHdpZH RoPScxMDAlJyBzdHlsZT0 bIz8wPJUnXMFg bGx (more content not included)... [facility] Coding Summaryon 04-08-2023 Coding Summary HTMLBase 64 QgjjumjpIBj9mQd+PGhlY WQ+HU7LGUZtA10kdPAapW 8rU7VYHZbNChuhAJUOEGv PWeTxrhTtSH5wnJPtZSDl IC8+OW3rGQJdEvtnnYIrp 8K4kUI1Z17ail4kXHlbsL C0BTDjDdZuondgp9ftmTm 6IDcuNmluOyBt JOXegB43UNJ9jK70Dr06q PIkdQYbt6upoTf9HcGcHC LvOZJ5zVcyKRybw6MbQKR oY15fgPMpx1V1 DWVtfLuinLGiOgEmoXG0a U5tZFxcicmxg9dwdjiqWp x4kq85zCGdk4H5hTL0A6S xkqO2TQCyoLRq OypkxXCYvU3vgiuqk2scq lohUhBbMKBbTPu7WJj8EY OuwEeaMjHkHB24WKL9ATI dgfCqO8HqJZEz qLmrJfH0s9U2Bs5WH4IHJ zvcT1SVETYNPUgqlAX+PC 84el54D3IdEqctEzx4BTT wSXN1nLG2qP8c UFAnONjkg2X2lVH4S7Eka kVlbh8to0grEMEvARfoP9 4ncWUqh9R1MJPlsBO2WDY eyRqxTqKbzW22 Oyc+SUWlyEgjd4EcQmmnt 7rmy5oqoIf2VrmwKJUgre YxrNwwFCD3p6MhGn5mNLU tqBU7uFV9pQ1p KeCpCiR2PWskH621YyYhr MAuYajnD11cO9GdgSL+PH LrAki0OYTxtVgcNK9zE1J hZGRpbmctbGVm jNfdKT1iISXdbnuvQJHrc V2nYTLxX4q9LyWvObW4QR dmW8DnMHBnhckiNl55wX1 kBeHkDaJ4XCcy G6VbwbR4ULJdyRQiXThuY CN4G28xk7B7FFViYRSjNM L2vLK4oB9isOjwrulffNM mdDsgdmVydGlj MLnqAWoeS527UXSkjRmnE kNvZGluZyBEYXRlOiAgMT AvMTgvMjAyMzwvdGQ+PHR nIAP7tSxxXLWd mWHkHNwlKy0utDtaaLhlR Q1fBXFirptdHHBtaB1rOK WawDCbcVfuBG2uTWPvwbz pp002GmAmJTD4 JNYyvVKrD1IetE6wWfPlC LWrRGDcE2TucFFxNRajA6 66XLzaNgF4GLBtjtSuG1F sLWFsaWduOiB0 m9T4Nz4Ln9LetcquQ7Pth LXuErJkSrlvHCy0V1CyRt wvdHI+KN65RUKsGZ08QUh 8SJV2iZaaDAgd BAHnM6DrwD1mHnMbWKVyH GRkOyc+PHRhYmxlIHdpZH RoPScxMDAlJyBzdHlsZT0 vRh1nMXOyHEDy cTmwpZUpCpTza6cjWSBrS ZwrBB3qcLuxY9HrfTT7OZ Knf5k0Hm47M88lX1ZgbGC +IOKpgWR5wNO7 xF6wXkEaNkG2VMmnT731C sQyaQMbVdcop7qkk2lfwG s4JgY3EMJhxsCxsZobZOZ 3v2TcCs14Z74x IHdpZHRoPSIxNSUiIHZhb Cybre7ohP6tSy2+PGNvbC S5xNJ5xH3hDwAnPvE0NLj aK620NnYwfLVe Qpzlw8lzv7ynrLe8NvFzK FDfzbPnuIhuAEF8p5FjTv 89N7SdiSkgh9SwAti2wi6 6gDLlx9M3oJE9 P8UzUECfuswzqSXntYqrW X2hBYOnqqcyURUtdI0rBV RkZ5s0FvDlKrC0SRczC6H hywV3BXThxFIa WHZwjPJCnI3tsqdcj2rkp phnUxBvJJYoAWj0JJu4JQ HjsKrgYeSwUPL4XwH6BQB 8lBBrbM6noPfe fdsxoW9wQvz+FWU4rXRzf QGQUR1nFdetpRN+PHRkIH V9jSdwGNgzGLImsI5zBZH oG4l6OoZmEaP4 PKwgP2HdarN6ZHVbkPJkQ YIzhUWRpR4emwoat2idws ggZoRmMNBlFKq7PYn5HLX saWduOiBsZWZ0 GmO3OZE1eYCmzN5svNbyg nwmrM1rFjv+QmlydGggRG H4WRl8H1JvJoy0UXYtkCo xFF6uyMRuCDon Dy5ctPxwnWvuDF6qOCIvb gbjr546CoMna8puDPUyaD FeLUikOEM0N97uz4F8FOZ tWIBfPSQ5fYL3 lP9ftBaiecxhcUXvyQhql hBwnQgsAEmoZTcnK439BR GktFclNtQdTMi6Y9GnUro 1YMJgkLybWR0s tOPkAFgvOh8jyFvlwWfzU P2oHAYaydjsy050GhFng2 qgXGHweDFyMTbfGHF0E86 oq1X7OZPiXGSp DFS1aDN2wL6apTbrcgfgs GVmdDsgdmVydGljYWwtYW mnE671HWTjfUwyPwLmmSi 0K4HzZrw0ASUa mCikYF9fyKIcBLqiHu4ab DtjsXwvFP6gJBGnoabkl1 81MzUzm1wjFRRmlDMkTMf nTCK8P41tg2W4 WQDxLEFlEEO0yMY2yW4tv GlnbjogbGVmdDsgdmVydG oyDPkdXIflS330BZKutYu nPlBhdGllbnQg BEzrQPa4Z8UeMogjeCB+P L18RWQpVT76uKQjwVUdv3 livQz2MoKtFGLhXSE5sYj aUMrin4SrJERk Q71kxBApl1E2ACGgtOuzl CCrYjUgsGE5zX8yCPmzuj rle6rukslqCpzdn3rlmg7 3kJ15S34bSCpa ZHRoPSIzMCUiIHZhbGlnb y3slF5zGo6+HAUwhKL4sC I7nD9aNMCeAbS8LHhjM79 9InRvcCIvPjxj u3brn9kkyNj3OcT8OZYua xPmzUjgFCS0h5ByEh60T0 9sIHdpZHRoPSIyMCUiIHZ lcXdtba7wrR9c Ii8+QFDqrUZ2kRV9zR8dF wYbYsB9LOnqA081LrAsyC BsQrvcX26kR1RilTX+PHR yEvw1IWPzpYsd SF8pbYNqNVveGd7sJXU1M hHrYzJcEHwbI9LwFBSrnm gyihdddZC0SELyKEKwsV9 9Qz2cuDnuPPZk bGAIwB3rlbqjt2mrmsinK xVfRVLfNXh5CUa0XYDaxS mnBxMaYGT0MvO0HFX2cVM fbI1bbCjwjzgt yA3rY7WgIPMbxngkVy06g E8rZcVvFxY2PDqgYcd+V0 2WBhNhOKpMFQfBOF4kXYr UCtTOGXVELA56 PL38vNWsd2N2cXO8M6WwK DPqrhhnpawlhJZ9XSApTW MahA98gIFxETljGo7zn7N 4x618AEZgTOXq tG61Mn6bmOvaEZDhbDKMe F9dyqwur2gxxjkzBcErIA EpDZn6HFa4ZBIjmUyuYcE jYMQ7VfR6VUE3 oZZulG9wwRpkzjfguT9dJ yc+QDPvAQVeHTs8RVowiB Q+IIBzBKP6qAbfJSvgWGI jxV5uMUJhB1q6 NdKbJhF6HAmuL8YtVJZgv hlxGc63wR7eGrQkWtQ9GS geW7YiphF0NNOfgWHkYWx sMMG7J45cz5E2 BYTfKFAqLMD7mLN7kP3bx GlnbjogbGVmdDsgdmVydG ttLOazVAisU071XINnaLx iUdF1CUobYOSa UJ07EE62zTNal3M1aYE9C 4JdGPQvqcvpdlqmtMI1QX IjWPMczU36kWDsJJnpAd6 oh4M3i475MJBu AXUzfJ88Yh5xrWiyIQUup ZYHkF4mxkoze7lpzcrsOc FaCSMgWDd0LYd5FITxnKr qIfFlSJL4PvP5 QSD6xWLxwW9xoWdzsjnss G9wOyc+LuHGXZqNTS04SS 21vWWoh7C9tVE4D3WxOHC pbmctcmlnaHQ6 CJQrMPMxlF57sJEnBUqtU v7bt3U7x899RKMpBFGeoP 62Ik4paFvcJDQzaLVBhN8 sxwmkz8qqtrdr MiJvAZHqYJr9EAu3HGWxq NseToCgHBD3CrH7MVR5uI EboU7ekMqyipaylV9pUiw +C3L2Q4TbAahf dHI+LV19KTKmGK73qAKfz XImx4nbuGk2QkMzDVLsJO Q8xNrgOUbhr4HrNYQvQ19 ieATef4O6IWRj sCrhwZHzXkIrxEN1qQ6aP Rlknbtcy1izusxdPpjpo5 jsge15jN33X58mELgcDYC oPSIzMCUiIHZh dVeoze2ssW4fGh9+PGNvb HJ9wDV6bI0dJbObErN4SZ rfK732KlJzjKIcZriew0b lf0hhxZr0MtXw UBAveiWoiEsjJUH1v8NjI h95Q31mCDthTHUfMRHzEF RsNUAboDxnom2zoI9wDb0 +WK4sg5aiej98 rF81jXR+LMNrBLJ2rOfeA LwiLHFhhF7cFQecTvF8HA OmHuAhxR86uIHqKSmmKd7 byCxjsYwuAV8g GICxbrbgf772GmVed2viL AAalMQsGIvkXEK7W19qk6 A3YPUuBARdYUY4pUC5uS3 hbGlnbjogbGVm dDsgdmVydGljYWwtYWxpZ 445YMEysScxToCojYSzT7 eatlBZTJ6uYyibvLB+PHR yTTJ1iDscUPef RDEpuH1iRVVgX8u7RrIaQ zX6VSfhR4InuqW8QKGmhT FdRPYkpXFOgL9nnbibe7v vcjogIzAwMDAw VWn5OYp0WHNwjRzrDvTyU ZL8MiB3MCJ6tSNsdP7xdR qbjmgloN3oBkq+RklOOjw vdGQ+PHRkIHN0 tJdvVAvpVLVfyS7wRGVyJ 7z5PjHtGfD9XBevY3Aqiq S6GEWywDHoRBLpmGPZdW4 fausqy6znyrit CyZzJFBaPBg7RZk1TQXwq TsiBwPeZYO9BoO6SCN1nE ZxrJ5jhKcfveirxS9pOzz +TVJOOjwvdGQ+ OVJjXUE2wWriLQwaBLWdw P9sRRSmV2s5JeZpFuT1HA ijX0LjhmD6EHCtxHYqJQV rqJQMfE2mrhya a9iftqxoXbNdHFOxZRo6U Pc7NWHxpOerJiDhUSQ7Jr U6JZS9mEPteC3poEyijgj iiU0qRwf+UGF5 MBA7WV25UZ61J5YeAxtrn GFibGU+PHRhYmxlIHdpZH RoPScxMDAlJyBzdHlsZT0 yBs9cHJHsRHLg bGx (more content not included)... [facility] Consent Formson 04-08-2023 Consent Forms [id number]#1 .00[facility] Controlled Substances Agreem entson 04-08-2023 Controlled Substances Agreements [id number]#1. 00[facility] Progress Note - Provideron 1 Progress Note - Provider [id number]#1. 00[facility] XR Sacrum/Coccyx Minimum 2 V iewson 04-06-2023 XR Sacrum/Coccyx Minimum 2 Views History: Pain Technique: Sacrum and coccyx, 4 x-ray views COMPARISON: [none] FINDINGS: [There is no lytic or sclerotic bone lesion.] [There is no fracture or dislocation.] [There is no significant degenerative change.] [There are no radiopaque foreign bodies.] [The soft tissues are within normal limits.] IMPRESSION: [Negative Study.] Final Signed (Electronic Signature): Ketan Sharma MD 04/07/23 2:17 pm Technologist: [facility] Coding Summaryon 03-30-2023 Coding Summary HTMLBase 64 KlziyxzxYFv1hSs+PGhlY WQ+JM6ZHOOgK09vaZMnrV 1fP9CINYxQBrdxNCGYIXf IPdZmhdIgQR3yiEGnQNWb IC8+MU5lXPWeKrbraDJif 8K0rPB1B60sod2hFRgnkR T7PDDvQdAjdguvl3tjgNi 6IDcuNmluOyBt ZDZocO37NQT2vF01Yl30n LMbbUQpt2kieHt1AzXbQI LzUOI4kHxqIQqzn7YyHZY fU03mhGSix1T2 EIBpqQzrsJHjCbDisMN5n U5hXGtrffjmy3cuotcmMz o0to97bCThl9Z8tJI8T7I lstO8KTXrtFOq VygavPUGoN9tdsgwp0tcg jksGfQrLCIuONa4IMw8MP LxgRmdVpWeOF73PDU3PFG dbxRkJ7KuKJVt aOzyDjY7i9P1Dv4XK9SOM xybT1ILPJOVNCkixGY+PC 99ua50C3PhPgjdLqd2AYJ nLRO3bZS9pO9p XJZzLDxai3J2lNV9C3Sih vJwrt9dd9ecJEViKGweQ0 9bwAAbb2C9ETHxfZK6CAX quVgdXgWjxN83 Oyc+TNSjcVdcq2VgFncsw 7pej4xnjTj0TfsaYBQfca KqkUjqXVG7s5MaDa5xTUZ twEF1uMH7cD4a SdVfBtX3GWlrR605HvYkc ALlRbutG13yD0CurEI+PH AvUza2ZIDpcZxzRI4rB3L hZGRpbmctbGVm kNzgZU5dGCClykryVISuo Q7nRFFdC8m3SuTkFeR7CO qiY3UqXLAdyrkdXx67cF2 fObYlGeJ7AZbc O0VhffN4NBYgmLPkUPpmN AP5B31oa9F9TYRwYOPwLC M9mXS9xW5vmSkusiyqyHZ mdDsgdmVydGlj WDvtSGgoI244GRAqvVnzO kNvZGluZyBEYXRlOiAgMT AvMDkvMjAyMzwvdGQ+PHR wXXT5hRxmFQOl qGHxZLrtHm4dlEsnyTsaD X3lAFBwopbmVQZqkM1wPE KsdMGbkPqtFC4kHTGsqry qp294BqWoEHJ9 JBHkhFJhD6PwuI8cXqWnZ KYnDQCjA4MkqHAxXIyoS7 99QQflCnZ0LPIzznEvM6A sLWFsaWduOiB0 y5J2Tf1Rj7NzueleA2Czw QTuPlPuRylsLOa8A1GwRa wvdHI+MK20PVYnSO46DIf 3DPB2ePnqGCcz RMOzI2RpgV4tIkVuMITsF GRkOyc+PHRhYmxlIHdpZH RoPScxMDAlJyBzdHlsZT0 fVo1cGOHgBSZn rOpuqLBgMdMyd5xcAOWnA UbmXX4zrVtpY3BtuGF4KL Wrq0t2Ya89C73zS6WgrLF +LBKwmHY0oRZ6 yL3kNvCuJsX3OHatZ643E bUwvBAaCrqbl5vkf5zidO q1PqG6SXPyfhXnhLftAJG 1u7MtZf44N97i IHdpZHRoPSIxNSUiIHZhb Sgfll3gsT4hUz4+PGNvbC V2jZJ0fJ9fMdZzFpQ8SYq fA975UkXdmRDq Sdlqw9idh7zrbWo2UrRqW RNetxKyvDcuJKM7h4WxBd 69U2KqaYzsx1GxZjs3jw8 1iIEvm5J5jEU5 M4TeLRDnjnyhqPWnnBfjG L8xSNSofhpmVWJbvR8tKO PiB0n3IoBuXjF8WOdbO9W eraQ7NXMhjVPx WTRbvDRUuJ4xlckcd7uyt yjdGiWjKKWlYIb7FIu0GD IvkAgmGxHwDDA1KcP7JSV 3gRMzrS2arZgo zttwsI3hVuq+APX8iBKfz MEZRS8cYzkwvOF+PHRkIH M3uEphJWsaNWIduB8tPCR sF8z1AnTuXaZ5 VOarB1QbqwK6HFQqpZDwN MOjfCSQrY2nogvqg5rlcj nwQyRtCNBeJBs9HVn1OUK saWduOiBsZWZ0 JlI5FDA2dEFhlR9ynEest qgqsN9rMxi+QmlydGggRG M4VBd3B2TmEny4GKVclZy pER8wiHPdFRwr He3eiSivnBptXT4vXKJzx fbxl483PuZtd6fiUCTloY IzUMpqJEC4E00zv4H2AJX oEYGwSAK2zDY9 pI0siAlhaunusHRswDwat rWjlJdbDUswCOjtQ927FK OxsCwbFbDzAKj6P3IhQxi 0PGDnnCbsYE2y pPMpMYvbUp9ydQrdmWhwO R8eLPNiphxis632QvUox7 ruHDQgaIMvCKmhAEN8L61 ji0G8YWSyHQJg NCE7uEN6gA7fqHpddcbyi GVmdDsgdmVydGljYWwtYW vbH242UHIatTbvVzXihKs 3T8LpNsl3NSIp iRojEI5awUDtKJswTd3mm LtffLymPG8wYWOmbglgh7 16AmHnx4ioZBKerIKkSTr eGOJ8C66kq5U7 OUMxXOGoHOL0xQP1vW0sq GlnbjogbGVmdDsgdmVydG eeSQssNBrtW442DFPwyUr nPlBhdGllbnQg VOatSQy2F1LpOmlxpPL+P M42QUMtMX85tGDjqKNcc8 ggzZi4XbIjOKIjNFV4iXv dCGvqd5CjVURt G62sxLWgz2Y1FMEtlBlsa ZPeLpZevQE6lX9jTCvywn mgj3hmhlnfXvwhd1dgys3 4bO56E71uHDvt ZHRoPSIzMCUiIHZhbGlnb m1ivE6yAk9+DDNhrWE3xU K3gC8hVDCdSpU9ZZcmE29 9InRvcCIvPjxj c3heu4lqfQy7BnY2PWKoq pWywTftTEN6u1PjRi46K4 9sIHdpZHRoPSIyMCUiIHZ fhZcbsj1srB9h Ii8+APCboLD8lAU9tW5gI cEwNiS1YXpiS534SzRhrV KcSrkvT48wC4BgqKS+PHR rTfh7SSHreHzp GA1jtBRbYZvuEh9dDWK0B gHaMgDdHQioS5DeAKSbsa kavyjnuFD9CAAxRMTmsV3 6Nk7ydXywVGPb cUCHxL1phqvte7vkxfxiF dJjRFVpFGw1KIt7WRPeaU nhQiUzXGA7JqW7UCT3kBO qqO1ffLnvunzp jY2zN8ToQTClkhdhIf78n F9nYsYgIhN1KYhwXdd+V0 7XYqXhDLlUHNfSXM1qNRd IQyHEVGBOSK37 LV65yJTzo8O1lEV1R2VsU EHbvyvqbopodGD4CTMcJT FweX58sOAoWHutJb2lj7X 9f068QZOvESLe uK19Bh8ycHyjVVPhdGCEd Q4potyjw9muwffiNcOyZN NcDRa9YSy7OPPwzXvaMcC vLEH2OxA6IGO9 dEOlkH0ivBllbyyvrV2xI yc+MSApDDYsFDu2SRivsJ Q+HBUlLVD4oTicFSclYZM xpY3mMVPoS7g1 LcMvZcD6UWqjM3UqZKBwg ympJh04dD4yIrGbLcI9JW fuA9AkveO5WYIfmICbULa bGWT3E53us0Z0 XVCxRFSaKOJ9kNM1kG1hg GlnbjogbGVmdDsgdmVydG sxUAcaBXdvP235QRLxrUi eItL8XWzxRQGw KV64IK13pPQls6C8rOD4T 7YnQATcxlobmkvlsJD2MB OcAXGraH67oHNyGKsyVk6 ob8W6v195UWNb TBNmeU52Jq0amLsxKBKka TDTvF0ffievl8lpyoquAi YgEBItFMs1IBu3SFWteFe eIaEtAJC6TgU2 MEZ5vMYztU4uhUccsiumf G9wOyc+HmACDHcVFG19JO 81oQPbl6P0cYT7Q5BnKIF pbmctcmlnaHQ6 PXDxSTTwvC92sRYePZyoP t2gq3T4f714VWFlHOJtbO 91Ky9zqIpeDVVstDKZxA0 xhkvrr8bicdze SnHqKWYrRBj4EDp5ZAEbd NzqUqAeNLN7UuC5RFA2qC ZixK8xmLsjubsnqN5cIst +J4D4D6YuRvbr dHI+GI43TMFiXP23nTAof BLgm6ifpAw9GuJbZNFyXI K7hZsiYAkkz4DpHSFrP26 hsEUhg9X4CDGe yMvftPYgSgBjhCL2yT0bZ Wftjhkpq7tdayqnJsqak3 xlet66fJ35T10uZWtvSSJ oPSIzMCUiIHZh tWdxca7veD4kLd0+PGNvb IM3qEZ8mK1oTpCsYvU8QL ejU634UbKzrAHsXhlcq4m gy1rcyKe3FwDg IPSnfoKuqDrsNTI0r0JuN y86J17cNPnuBAOfWJVyHL FrZSUpfBakdp0rcW6mYz8 +WQ5gr4xlma74 yH60eCL+SZLjVFF3zMufH GujCJQkxG3hVXgeZvI2OT NpGlLopL19dKMqYZooOz2 dxOuraXpoYP3g SIClhckds683XdVam3djW HEvsFZtTBusPRL7S72js8 X2TACqGYDeWQH9qYV8sI6 hbGlnbjogbGVm dDsgdmVydGljYWwtYWxpZ 786NGTcyCugTbTyrPClF4 upfqWLTR0dOewkaMC+PHR nWHF7sPnfFRjd KFJvxY7nSULrG9s7ZiCfS kY9SJipN4JusbA1MCFavG FyTGIfeFJWtO2sxujhb5s vcjogIzAwMDAw AEd9MXt6QHSpgUheDgMjL AE6UwV7SXI5rMJkzK1moB qdrgdqfP7fZxg+RklOOjw vdGQ+PHRkIHN0 zDqgTHjyXHGlwB3iGSMyA 4r0XlCtWjU1VBvzZ8Imce P7BIAlgAFiIVTqsGKXbR0 gutilj7fgkoab EiFfGDUqEPq1QAf8RVXbp AgbCiTfGIK3IuW6DWC8nP NtfA9baZhqbrommD4cEai +TVJOOjwvdGQ+ MVEwCCS2gIsjAVdcYYSbq J4mIVKtK9e3JsVpSkI9KU shO6SlrsD0HXYnkMSvLXZ noSDFtT9vtjve p4ihjumeZrUzBGUfIBk6C Vl9QHVhzMbsDqCmVOL7Pz S1PZS0tNEkeS4thCxjilu taI7zZpe+UGF5 ZBT0OM05UP02Y8LuSlrnm GFibGU+PHRhYmxlIHdpZH RoPScxMDAlJyBzdHlsZT0 hXr6gMZDkOVKo bGx (more content not included)... [facility] Outside Record[facility] 03-26-2023 Outside Records [id number]#1 .[email or web address] Office/Clinic Noteon 023 Office/Clinic Note Patient: TERE RADER Age: 67 years Sex: FEMALE : 1955 Associated Diagnoses: Headache; Lumbar degenerative disc disease; Lumbar spondylosis; Hypertension Author: Dale Flores MD A History of Present Illness 67-year-old female here for follow-up of recent ER visit but also for 4-month checkup. She was in the emergency room about 1 week ago with a bad headache. 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 Work-up was completely negative. It did resolve with medication she has not had a headache since. Also reviewing her chart blood pressure is excellent. She is down about 16 pounds. She is doing GOLO she is here with her . Otherwise no other complaints. She does use tramadol as needed for pain otherwise typically uses Tylenol. Review of Systems Constitutional: Negative. Ear/Nose/Mouth/Throat : Negative. Respiratory: Negative. Cardiovascular: Negative. Health Status Allergies: Allergic Reactions (Selected) No known allergies, Allergies (1) Active Severity Reaction No known allergies None Documented Current medications: (Selected) Prescriptions Prescribed BuPROPion (Eqv-Wellbutrin SR) 150 mg/12 hours oral tablet, extended release: 150 mg = 1 tab(s), PO, BID, for 90 day(s), 180 tab(s), 3 Refill(s) baclofen 5 mg oral tablet: 5 mg = 1 tab(s), PO, HS, 90 tab(s), 0 Refill(s) docusate sodium 100 mg oral capsule: 1 cap(s), PO, BID, PRN: if needed for constipation, 60 cap(s), 5 Refill(s) ibuprofen 800 mg oral tablet: 800 mg = 1 tab(s), PO, q8hr, for 30 day(s), 90 tab(s), 1 Refill(s) losartan 50 mg oral tablet: 1 tab(s), PO, Daily, 90 tab(s), 3 Refill(s) oxybutynin 5 mg oral tablet: 5 mg = 1 tab(s), PO, Once a day (at bedtime), 30 tab(s), 9 Refill(s) pravastatin 40 mg oral tablet: 1 tab(s), PO, Once a day (at bedtime), 90 tab(s), 1 Refill(s) pravastatin 40 mg oral tablet: See Instructions, take 1 tablet by mouth at bedtime, 90 tab(s), 3 Refill(s) solifenacin 10 mg oral tablet: 10 mg = 1 tab(s), PO, Daily, 90 tab(s), 3 Refill(s) traMADol 50 mg oral tablet: 50 mg = 1 tab(s), PO, q4hr, PRN: as needed for pain, 60 tab(s), 0 Refill(s) venlafaxine 150 mg oral capsule, extended release: 1 cap(s), PO, BID, 180 cap(s), 3 Refill(s) venlafaxine 150 mg oral capsule, extended release: See Instructions, TAKE ONE CAPSULE BY MOUTH TWICE A DAY, 180 cap(s), 0 Refill(s) Documented Medications Documented GOLO: See Instructions, take one tab before each meal, 0 Refill(s) acetaminophen 650 mg oral tablet, extended release: 650 mg = 1 tab(s), PO, Daily, PRN: Pain - Moderate, 0 Refill(s), Home Medications (14) Active acetaminophen 650 mg oral tablet, extended release 650 mg = 1 tab(s), PRN, PO, Daily baclofen 5 mg oral tablet 5 mg = 1 tab(s), PO, HS BuPROPion (Eqv-Wellbutrin SR) 150 mg/12 hours oral tablet, extended release 150 mg = 1 tab(s), PO, BID docusate sodium 100 mg oral capsule 1 cap(s), PRN, PO, BID GOLO See Instructions ibuprofen 800 mg oral tablet 800 mg = 1 tab(s), PO, q8hr losartan 50 mg oral tablet 1 tab(s), PO, Daily oxybutynin 5 mg oral tablet 5 mg = 1 tab(s), PO, Once a day (at bedtime) pravastatin 40 mg oral tablet 1 tab(s), PO, Once a day (at bedtime) pravastatin 40 mg oral tablet See Instructions solifenacin 10 mg oral tablet 10 mg = 1 tab(s), PO, Daily traMADol 50 mg oral tablet 50 mg = 1 tab(s), PRN, PO, q4hr venlafaxine 150 mg oral capsule, extended release See Instructions venlafaxine 150 mg oral capsule, extended release 1 cap(s), PO, BID Problem list (past medical history): Active Problems (16) Chronic low back pain Depression Hemiplegia following cerebrovascular accident Hemorrhagic cerebrovascular accident (CVA) History of stroke with residual deficit Hyperlipidemia Hypertension Lumbar degenerative disc disease Lumbar spondylosis Muscle atrophy Muscular deconditioning Obesity Somatic dysfunction of lower extremities Somatic dysfunction of lumbar region Somatic dysfunction of pelvic region Spasm of lumbar paraspinous muscle Physical Examination VS/Measurements Vital Signs 03/23/2023 13:35 EDT Peripheral Pulse Rate 61 bpm Systolic Blood Pressure 130 mmHg Diastolic Blood Pressure 90 mmHg BP Site Right arm SpO2 96 % , Measurements from flowsheet : Measurements 03/23/2023 13:35 EDT Height 165 cm Height/Length Measured (inches) 64.96 in Weight 121.25 kg Weight Measured (lbs) 267.31 lb Body Mass Index 44.54 kg/m2 [place] Body Weight Calculated 56.909 kg BSA Measured 2.36 m2 General: Alert and oriented, No acute distress. Neck: No jugular venous distention, No lymphadenopathy, No thyromegaly. Respiratory: Lungs are clear to auscultation, Respirations are non-labored. Cardiovascular: Normal rate, Regular rhythm, No murmur, Good pulses equal in all extremities. Impression and Plan Diagnosis Headache ([id number] R51.9). Plan: Headache has (more content not included)... Normal [facility] Coding Summaryon 03-20-2023 Coding Summary HTMLBase 64 WtgobgqoJRe4sFk+PGhlY WQ+NA0BQWPeZ43gsOTnqX 7pP1CONRaCLnldLMNZHPz XVdFxiaFdWC8ivRQwWVVq IC8+VY3aXYBdBijkiMNrs 4Y2kYN9B43whp9xJAzipF J1DHGbCmPeyrztd3esiQr 6IDcuNmluOyBt QTQrwA25EMZ8fX82Zj45i QJpqBHys2cjwQn4WsYwFT ZiEUO4pSmfIKgwh0BxYJU oK73vwJPez2O7 UAQwzHadgLKxYwKytHM2n T9bYVesbfyln6kuryeyNc r9zj28bCGos9E5pQG2F1Y vvfS8QTQyaJYg UkvlgNPPuL3ioxetw0rta mwnHqLkQHFmKPi2WXz0CS AdcBbiWvHeNV64CBK1LOT oqvArD2MsIFTb hBeuSaO3v4B7Xp0UH3SWW rhiU5UGZVCPEVodnEJ+PC 92nd81P1ElCkrtSeg9KUW rLFY8cXU2oZ8m CRWdPDmih0F5fUH0E7Pzw kZvrt4hn9odGESpZBimX6 4ziFYvg7P1DYZpdER6NWY poObbSqOovT04 Oyc+MRBevSxef3BlZdpbr 0hpw8pjhDn5FwzdKGUbwp GbkWofFYM4s2AwAr1sDZV sdJC3nGO3eG0v QdHsKrJ6MVnbL781ToHcq OGlJhanZ50cQ7GldVD+PH ZkVfm3UUCueAosAU5hP1V hZGRpbmctbGVm uLniXS3hPJFcjmvfCRWwc H5dUMBpE6z6VfBaHkR0QW xlH8OjUAHnexswKc44mO4 bWrXiEmK5VXwo G2RsfaJ9PSQgoRZzZZvkP BA9T97pb3R4ZQBeFJItFI X2tTQ6fE6lqFszhphaaZS mdDsgdmVydGlj JXdeEWfgC315CMFdmBcvB kNvZGluZyBEYXRlOiAgMD kvMjkvMjAyMzwvdGQ+PHR oMFD8qMmoSHTw lXPkOEfcGi9iiSrpqIigC N8vFAZxspggQYMewQ3tJP KpnPRyuSfpDF9qXWBilmu tb725DpEjHFF9 FVLmzPAaA3JmoW8nEuUfN EVjHIOmS3YzyKAsNYtqI6 87VFidZmN0OBZzkgVcR7H sLWFsaWduOiB0 q5X8Ef5Cf6AyamupW4Bkj HWgXyWcSjmiTJa7U4BsDm wvdHI+QI34VSZqGU62BNd 6QSV8lXzhNBcy JWAcC2KrfI1eOlTzLUTaE GRkOyc+PHRhYmxlIHdpZH RoPScxMDAlJyBzdHlsZT0 nMs6vQKBcHFSh lYuhrODpSsEeu6bxEHZaL QqcKI4iiPqgW7KulFN2CN Egv9c8Ej35D34fJ5GneCE +QEOsoLX4pOV4 bQ6aQqXuNaW3IPvnT293H nNbjTRtQrwzb3gnu0dfxT x1NlW7JXKhsdCcnTgoAFX 5o1MdEh69F24p IHdpZHRoPSIxNSUiIHZhb Tpyht8piJ1gNi0+PGNvbC Z8tXS1lM4oUcXzEuJ9GBs pK458PzPilPWh Zbsvn5bbq8ubhQp5OzIpJ BGbwhAroDwuLCB5u6FoAc 53P3HfkLkob4PsOar8eb4 4rLJae0T6zTV8 A3IlPYZllkscjXFszZloQ L8bGRFvroucYHCnuP8iDT KuD1v0VkErCmQ0PTujP3V qvaG6JASfzPAh ABYvqEVRbR9etcvor0nkr inpWkNsFJScQYf7THh4DP DvlQqxSoVwKXA6SjG5QFY 4iBJtoC6xyLbp nmgdyM5qCdt+KVH6tPNml OWEGU3vWbeawBW+PHRkIH S4wAsoFTzfQQDmqM1vFRT zL7k9AcHoQlG5 TXajU3TdnwR1XCCfhGAzS VLepGPUbO6mubxvi1yvkb bqDyZvHEJqTIz6LPs7OJU saWduOiBsZWZ0 ZsY8COY4yMIbtU1yhLkxj tyuvO8tOec+QmlydGggRG M2XBu1Z3CpJnz6NMHdqIq zHO2qpWFtNOoy Fe4goIeybKujCW6oFNGnf ukgi260VaEnz2jdMRAgpN AdBOdoDPC7F19ld2I2HRR vHFOlEOL4lEW2 nG9pwQvvjmrfjCRlnRaqy yYhdIgpACcnDCybT620VM YpiZlzLeIsZYx4R5BvVjv 6HYZvcShbNJ6x tWMsUFszKi9wxLasrNwzZ O6eMULallkcg287VaBsu9 ldJKSysLUvTGmiBAX1L79 ns9G1UPZzPXFv CDP7mDY5jN9ulLhyeuqtk GVmdDsgdmVydGljYWwtYW ieM762SBGilPbvEpIbbBp 8A6ZfEtm0OYBn fWxuUC7mvMZcICzdWx0rt EnumYzyCY8kREDusuxqr7 38EgQoe5bhYEVkqEJcMPm iBVB3S00ha8P8 CDQgZCEzXNF3rML7hY5hq GlnbjogbGVmdDsgdmVydG sbXWyjIFltM748LMIeoEi nPlBhdGllbnQg JFxcFVd1W9KwEasyjKV+P B30IYTtJY09iQWzkXRyl2 cfeLa1UsVfOSGxHAZ2wCc eHNako2NjWPBt M90azTVkc7T7EEBprFjwy BOcRfPjlMP6mV2vZYwxas zns0ijbrzwGmmuy8uiqo7 7gL44K72mJGtk ZHRoPSIzMCUiIHZhbGlnb d9mjU6lLg7+KGRezLI2mA U2pR6uHBXiErT3QAcaT58 9InRvcCIvPjxj m9che9wphBm7CdP4UUAil jWmnKpvHBN6j6GyWl82Z0 9sIHdpZHRoPSIyMCUiIHZ sgTrrki7wnF8z Ii8+HINxdYJ7yQO4cU9mO wFxIpI6DNdnR127WjGysD HeExmtQ74wA3QuzBV+PHR kMdp2DWBpeZsd LZ9gvVRjJWugMt0kERK1J mRhNpRwQDyoO0KbGEEgui pkvuenrOB1DKJdDJNsbY1 3Nh2prZnnIQEa sMJNgD8lqydvl1zjjsrnJ eWtJOTyDDb4VDo3ODPzrE vnGhXwWQH0FgE0EMW0xBT jmJ5ttLwmbmtn nI6yL9MsHAYsaovjFg17m L7hOyHkZfW2CEcnGbp+V0 8PMyZuTHvURLdJGK5vAPq TNkYAQQNPDV90 JG25gVNlb7H5gMN9F4HpT HFdvxyduqkybWH6QLIfRZ WdrD55oUZkUHccXk9hr9B 7d923VJGuIBMw iH47Is0rcChaHKRzkMFQz G4kgqefr3ndvhsxXqCsQB SxMIf0LYl4IWMziOchTmN xGCS7KzE1UIT8 cMFpyD8ubMiarslvhM4aV yc+LMIiRVWdXTa5DQvcfO Q+OSJwERA8pAxrPZqqVUP tbJ6rDULeS6a8 NhTdMiE9XEnxN8OlTOUbd bhsPu35rL0aYtSfJuZ8SS ytQ5TstcF8SEVusVImPHq dVDV8X42fj7G1 ZWIcIEHeTJV0iIR2pR3fo GlnbjogbGVmdDsgdmVydG lvDOirMQshC645DQZnzQl eShP0RMefDXVq CS99RR59nJFul0P5nWL9Z 2VgWSApxwrooaiocKR7NZ JdIMTzvR06qAFhAUwvSe3 xs6F5m635ZGPh FWTvbS42Oy1nmWgcVTPwg MJUmM2riotfh1ynarhuPq DnSOToMUy6FLd3ZIPejMe cUuXfRLR9AfC7 ENO1sOHkmE4bpGvlevpxp G9wOyc+JnGFUBcXSJ33AT 30dAJxa5I4uOF8L7RmALT pbmctcmlnaHQ6 DUNaYKRbiK95jILyXXrwD j0ze8Q8j499XSQjBRVynT 13Yc3irInrVTVdtNBNnM9 axavyr6teadmf LtRvYCBgBHg7IYf7AJFtg NadYwSkOAG5DmN4MXZ4mY PthI6ahOyeeveteK6mRkh +BL6nskmaxxT1 TE24AF86V1PxWzdspDFgi +PHRhYmxlIHdpZHRoPS drGYOdVgXloIccQQ1dOv0 yZGVyLWNvbGxh uTBlVzUqr8iaDCJbNGbnR K3rjVqfW0GygHI5QDCrh9 v5Dp08J62sY5YhtIJ+PGN xsYW6nBE5pE0b ExKmVaF9SKdoO434AoRfq SPwUrhoj4fmw7woiIz9Lw PdYLPlouDseRbqZUO6k1X bVc27T82uCAht ZHRoPSIyMCUiIHZhbGlnb q8ptS7nCd3+XJZbjMM1bM D6oQ8lXbMjPsW3WBoyE09 9InRvcCIvPjwv Z25hD3FkjCN+OVZcJsf2V AYrjBcjDT5zsXJnWSszWc 9jIAS4SdZrCgAsLWknH3P hZGRpbmctcmln yII1YBMiDZTnsI75St6eo VrlOw7sQVTlZYX1SVGzuP MuA8SnvK2tLfHaWWBmUAT mQ7TqpUWdBTaa T746EQwyVqB2IWZtkmTwZ 3TyTKLivYtcUaA0o8J7Su 7IfKkeoBLfLY6vVxQnMMu 3H3StDfl2OBRa dQghBW7lmNDoPRigDn8kx AugaDcdAA1pIKEhpqtji2 92KhLia3sdAGQfwCRpDJm wFQT9Q20ui5I5 LFRgYVBjBHX0lEN6bW6vp GlnbjogbGVmdDsgdmVydG jbWShsWWreE202ZWFdtRq sNgWQVne7O7Wt Vye6NLHleUsqML7kgUCxJ RwrMs9ziOpvtWkrIH0fBI Mtmykpx781JqLob4jpOSJ wcHQgVGltZXM7 A89my6X1MCQpTJSnVMO5s LN8rU1hgEyfvyqaoPGlrH snlxEzxPkcYCmwPIupT41 2BZHceBejKx8K Bvd6Q4UwSwy1PBDfqFerC L4hoPTySZcvSu0dlSnveD fpBO9aXJTkqjwuv348HbB we8smKOFihGHa HLytTUF4N78fe6Z6KJZtY KSsHFU0zYR4wQ0emEzjxi ogbGVmdDsgdmVydGljYWw kPZrfA617KCHy cDsnPlBheWVyOjwvdGQ+P V95us22N1GbQrqbFma2OM XsFHH6xCH5iR2rAARpITa zo7E1tFO2S7Hk cmR (more content not included)... Normal [facility] CT Head or Brain w/o Contras ton 03-11-2023 CT Head or Brain w/o Contrast CLINICAL HISTORY: Headache. History of prior intracranial hemorrhage. COMPARISON: [None.] TECHNIQUE: [Serial axial images without IV contrast from the vertex to the foramen magnum.] [Sagittal and coronal reconstructions.] All CT scans as this facility use dose modulation, iterative reconstruction, and/or weight based dosing when appropriate to reduce radiation dose to as low as reasonably achievable. RESULT: Acute Change: [No evidence of an acute infarct or other acute parenchymal process.] Hemorrhage: [No evidence of acute intracranial hemorrhage.] Mass lesion/ Mass effect: [There is no evidence of an intracranial mass or extra-axial fluid collection.] [No significant mass-effect.] Chronic change: [Scattered patchy foci of low attenuation are present within the supratentorial white matter which is a nonspecific finding but likely represent mild to moderate microvascular ischemia.] Encephalomalacia involving the right subinsular cortex, right parietal region, left parietal occipital region, and elsewhere, most likely secondary to remote infarct, or other chronic insult. Parenchyma: Mild generalized volume loss. Ventricles: Size corresponding to the volume loss and also with areas of ex vacuo dilation adjacent to the encephalomalacia. Paranasal sinuses and mastoid air cells: [Visualized paranasal sinuses are grossly clear.] [Mastoid air cells clear.] Skull base: [Skull base and imaged soft tissues are unremarkable.] IMPRESSION: [No acute intracranial process.] Final Signed (Electronic Signature): Sp Stanford MD 03/12/23 8:35 am Technologist: [email or web address] ED Clinical Summaryon 2022 ED Clinical Summary [facility] Emergency Department [address] [place] [id number] ED Clinical Summary PERSON INFORMATION Name: TERE RADER Age: 67 Years Sex: FEMALE : 1955 MRN: Acct#: Visit Reason: Headache; HEADACHE Arrival: 03/11/2023 18:52:58 Discharge: 03/11/2023 22:11:00 LOS: 000 03:19 Check In: 03/11/2023 18:52:58 Checkout:03/11/2023 22:11:00 Address: [facility] [place] [address] PCP: Dale Flores MD PROVIDER INFORMATION Provider Role Assigned Unassigned Tao Rene MD ED Provider 03/11/2023 19:59:20 Summer RN, Alexandria Wilkerson ED Nurse 03/11/2023 20:03:02 VITALS INFORMATION Vital Sign Triage Latest Temperature Tympanic Temperature Temporal Artery Pulse Rate 80 bpm 64 bpm O2 Sat 98 % 98 % Respiratory Rate 18 br/min 14 br/min Blood Pressure /81 mmHg /81 mmHg MEDICAL INFORMATION Medications Given: Allergy Information: No known allergies PHYSICIAN DOCUMENTATION DISCHARGE INFORMATION: Discharge Disposition: Home Discharge Location: Home PATIENT EDUCATION INFORMATION Instructions: Hypertension, Adult, [id number] Follow-Up: With: Address: When: Dale Flores MD [address] [place], [place] [id number] Within 3 to 5 days DIAGNOSIS: 1:Headache; 2:Elevated blood pressure reading Patient Understands: Yes - Patient/family/caregi clare verbalizes understanding of instructions given Comment: [facility] Patient Summaryon 023 ED Patient Summary [facility] - Emergency Department [address] [place] [id number] PATIENT DISCHARGE INSTRUCTIONS Patient Information Name: TERE RADER Age: 67 Years Date of : 1955 [facility]: [id number] Reason For Visit: Headache; HEADACHE Arrival Time: 03/11/2023 18:52:58 Primary Care Physician: Dale Flores MD Attending Physician: Risa iHlton MD Comment: Visit Diagnosis: Diagnoses This Visit Elevated blood pressure reading (R03.0) Headache ([id number]) Headache (R51.9) The Pharmacy at [facility] is open Thursday through Thursday from 9A to 6P and Thursday and Thursday from 9A to 5P Prescription Information: If you have been given a prescription for narcotics, seek immediate medical attention if you have any difficulty breathing or any sudden status changes such as confusion and sleepiness. If you or anyone you know is experiencing suicidal thoughts, mental health, alcohol and/or drug addiction problems; contact the [facility] 12/01 Crisis Hotline -text 4hope to [phone]. If you received any narcotics, sedation, or any other medication that causes drowsiness for the next 24 hours, unless otherwise directed: ? Do not drive a car. ? Do not operate machinery such as power tools, lawn mowers, drills, sewing machines, or stoves ? Avoid alcoholic beverages and drugs for allergies, nerves, or sleep ? Do not make important personal or business decisions or sign any legal documents With: Address: When: Dale Flores MD [address] [place] [id number] Within 3 to 5 days Medication Information: The exam and treatment you received today in the [facility] Emergency Department were for an urgent problem and are not intended as complete care. It is important for you to follow up with a doctor, nurse practitioner, or physician?s assistant media planner for ongoing care. If your symptoms become worse or you do not improve as expected and you are unable to reach your usual health care provider, you should return to the Emergency Department, we are available 24 hours a day. For those patients who have received Radiology results, the interpretation of your X-ray as given to you by our Emergency Department physician is only a preliminary report. The Radiologist will review your films and if there is a change in the diagnosis you will be notified by phone. Please make sure you have provided a working phone number so we can reach you if necessary. In the event that you had a lab culture while you were a patient in the Emergency Department, you will be notified by phone if there is a need to change your antibiotic. Please make sure you have provided a working phone number so we can reach you if necessary. [facility] Emergency Department has provided you with a complete list of medications post discharge. Please inform your stock raiser/provider of your visit and for further instruction on these medications. Any specific questions regarding your chronic medications and dosages should be discussed with your primary care physician(s) and/or pharmacist. Additional medications on your home medication list not specifically addressed. Please contact the ordering physician if you have questions about these medications. acetaminophen (acetaminophen 650 mg oral tablet, extended release) 1 tab(s) Oral every day as needed Pain - Moderate. baclofen (baclofen 5 mg oral tablet) 1 tab(s) Oral At bedtime. Refills: 0. buPROPion (BuPROPion (Eqv-Wellbutrin SR) 150 mg/12 hours oral tablet, extended release) 1 tab(s) Oral 2 times a day for 90 Days. Refills: 3. docusate (docusate sodium 100 mg oral capsule) 1 cap(s) Oral 2 times a day as needed if needed for constipation. Refills: 5. ibuprofen (ibuprofen 800 mg oral tablet) 1 tab(s) Oral Every 8 hours for 30 Days. Refills: 1. losartan (losartan 50 mg oral tablet) 1 tab(s) Oral every day. Refills: 3. Misc Prescription (KETO weight loss) take one capsule BID. oxybutynin (oxybutynin 5 mg oral tablet) 1 tab(s) Oral once a day (at bedtime). Refills: 9. pravastatin (pravastatin 40 mg oral tablet) take 1 tablet by mouth at bedtime. Refills: 3. pravastatin (pravastatin 40 mg oral tablet) 1 tab(s) Oral once a day (at bedtime). Refills: 1. solifenacin (solifenacin 10 mg oral tablet) 1 tab(s) Oral every day. Refills: 3. traMADol (traMADol 50 mg oral tablet) 1 tab(s) Oral Every 4 hours as needed as needed for pain. Refills: 0. venlafaxine (venlafaxine 150 mg oral capsule, extended release) TAKE ONE CAPSULE BY MOUTH TWICE A DAY. Refills: 0. venlafaxine (venlafaxine 150 mg oral capsule, extended release) 1 cap(s) Oral 2 times a day. Refills: 3. Visit Information Allergies: Substance Reaction Symptoms Type Comments No known allergies Drug Vital Signs: Vitals and Measurements this Visit (last charted value for your 03/11/2023 visit) Vital Signs Thi (more content not included)... Normal [facility] Encounters Encounter Date Encounter Type Care Provider Facility Start: 02-04-2024 ambulatory BEN ZEE Facility :[facility] Start: 02-03-2024 ambulatory Dale Flores Facility: [facility] Start: 01-15-2024 End: 01-15-2024 ambulatory Dale Flores Facility:[facility] Start: 01-14-2024 End: 01-14-2024 [facility] Dale Flores Facility:[facility] Start: 01-01-2024 End: 01-01-2024 ambulatory Felicia Cosme Facility:[facility] Start: 01-01-2024 End: 01-01-2024 ambulatory Felicia Cosme APRNART Facility:[facility] Start: 12-11-2023 End: 12-11-2023 ambulatory BEN ZEE Facility:[facility] Start: 12-11-2023 End: 12-11-2023 ambulatory Ben Zee MD Facility:[facility] Start: 11-12-2023 End: 11-12-2023 ambulatory Felicia Wilkerson [place] Facility:[facility] Start: 11-12-2023 End: 11-12-2023 ambulatory Felicia Cosme APRNART Facility:[facility] Start: 11-09-2023 End: 11-09-2023 ambulatory Felicia M [place] Facility:[facility] Start: 10-19-2023 End: 10-19-2023 ambulatory Dale Flores Facility:[facility] Start: 10-19-2023 End: 10-19-2023 ambulatory Dale Flores Facility:[facility] Start: 10-01-2023 End: 10-01-2023 ambulatory Dale Flores Facility:[facility] Start: 09-03-2023 End: 09-03-2023 ambulatory Felicia M [place] Facility:[facility] Start: 09-03-2023 End: 09-03-2023 ambulatory Felicia Milly [place] PROPELLER INSPECTOR-INFORMATION STRATEGIST Facility:[facility] Start: 08-21-2023 End: 08-21-2023 ambulatory BEN ZEE Facility:[facility] Start: 08-21-2023 End: 08-21-2023 ambulatory Ben Zee MD Facility:[facility] Start: 08-05-2023 End: 08-05-2023 ambulatory Felicia M [place] Facility:[facility] Start: 06-29-2023 End: 06-29-2023 ambulatory Dale Flores Facility:[facility] Start: 06-29-2023 End: 06-29-2023 ambulatory Dale Flores Facility:[facility] Start: 06-25-2023 End: 06-25-2023 ambulatory Felicia Milly [place] PROPELLER INSPECTOR-INFORMATION STRATEGIST Facility:[facility] Start: 05-29-2023 End: 05-29-2023 ambulatory Ben Zee MD Facility:[facility] Start: 05-29-2023 End: 05-29-2023 ambulatory BEN ZEE Facility:[facility] Start: 05-18-2023 End: 05-18-2023 ambulatory Felicia M [place] Facility:[facility] Start: 05-18-2023 End: 05-18-2023 ambulatory Felicia Milly [place] PROPELLER INSPECTOR-INFORMATION STRATEGIST Facility:[facility] Start: 04-27-2023 End: 04-27-2023 ambulatory Felicia M [place] Facility:[facility] Start: 04-06-2023 End: 04-06-2023 ambulatory Felicia M [place] Facility:[facility] Start: 04-06-2023 End: 04-06-2023 ambulatory Felicia Milly [place] PROPELLER INSPECTOR-INFORMATION STRATEGIST Facility:[facility] Start: 03-23-2023 End: 03-23-2023 ambulatory Dale Flores Facility:[facility] Start: 03-23-2023 End: 03-23-2023 ambulatory Dale Farias Mark Facility:[facility] Start: 03-11-2023 End: 03-11-2023 Emergency department patient visit Dale Farias Mark Facility:[facility] Start: 11-25-2022 ambulatory REEMA CH Faci lity:[facility] Start: 10-29-2022 End: 10-30-2022 ambulatory REEMA Díaz [facility] Facility: Payers Date Payer Category Payer Private Health Insurance 2019 Private Health Insurance [id number] 1960 Medicare [id number] 1955 Unknown [id number] 2.16.84 0.1.715330.3.579.2.593 1955 Unknown [id number] 2.16.84 0.1.584031.3.579.2.593 1955 Unknown [id number] 2.16. 840.1.285420.3.579.2.196 1955 Unknown [id number] 2.16. 840.1.539642.3.579.2.196 1955 Unknown [id number] 2.16. 840.1.938724.3.579.2.196 1955 Unknown [id number] 2.16. 840.1.339548.3.579.2.196 1955 Unknown [id number] 2.16. 840.1.132482.3.579.2.196 1955 Unknown [id number] 2.16. 840.1.157654.3.579.2.196 1955 Unknown [id number] 2.16. 840.1.189296.3.579.2.196 1955 Unknown [id number] 2.16. 840.1.367154.3.579.2.196 1955 Unknown [id number] 2.16. 840.1.891235.3.579.2.196 1955 Unknown [id number] 2.16.8 40.1.936010.3.579.2. 1955 Unknown [id number] 2.16.8 40.1.550768.3.579.2. 1955 Unknown [id number] 2.16.8 40.1.366452.3.579.2 1955 Unknown [id number] 2.16.8 40.1.617164.3.579.2. 1955 Unknown [id number] 2.16.8 40.1.890548.3.579.2 1955 Unknown [id number] 2.16.8 40.1.381692.3.579.2. 1955 Unknown [id number] 2.16.8 40.1.488306.3.579.2 1955 Unknown [id number] 2.16.8 40.1.453682.3.579.2 1955 Unknown [id number] 2.16.8 40.1.097437.3.579.2 1955 Unknown [id number] 2.16.8 40.1.304895.3.579.2. 1955 Unknown [id number] 2.16.8 40.1.332380.3.579.2 1955 Unknown [id number] 2.16.8 40.1.096480.3.579.2 1955 Unknown [id number] 2.16.8 40.1.648386.3.579.2 1955 Unknown [id number] 2.16.8 40.1.474919.3.579.2. 1955 Unknown [id number] 2.16.8 40.1.395235.3.579.2 1955 Unknown [id number] 2.16.8 40.1.523253.3.579.2.718 1955 Unknown [id number] 2.16.8 40.1.724530.3.579.2.718 1955 Unknown [id number] 2.16.8 40.1.535434.3.579.2.8 1955 Unknown [id number] 2.16.8 40.1.888083.3.579.2.8 1955 Unknown [id number] 2.16.8 40.1.957701.3.579.2.8 1955 Unknown [id number] 2.16.8 40.1.693296.3.579.2.8 1955 Unknown [id number] 2.16.8 40.1.304558.3.579.2.8 1955 Unknown [id number] 2.16.8 40.1.533486.3.579.2.8 1955 Unknown [id number] 2.16.8 40.1.715474.3.579.2.8 1955 Unknown [id number] 2.16.8 40.1.331948.3.579.2.718 1955 Unknown [id number] 2.16.8 40.1.650161.3.579.2.8 Clinical Notes 10-29-2022 to 02-03-2024 Note Date & Type Note Facility 02-03-2024 Note [facility] SURGERY Clinical Discharge Summary PERSON INFORMATION Name TERE RADER Age 68 Years 1955 Sex FEMALE Language Mauritanian PCP Mark SORIANO, Dale Farias Marital Status Med Service Pain Management Surgery MRN Acct# Arrival Visit Reason SACROILIITIS Acuity LOS 000 01:25 Address: [address] [place] [id number] Comment: PROVIDER INFORMATION VITALS INFORMATION Vital Sign Triage Latest Temp Oral Temp Temporal Temp Intravascular Temp Axillary Temp Rectal 02 Sat Respiratory Rate Peripheral Pulse Rate Apical Heart Rate Blood Pressure / / Comment: MEDICAL INFORMATION Allergy Info: No known allergies Prescriptions Given: acetaminophen (acetaminophen 650 mg oral tablet, extended release) 1 tab(s) Oral (given by mouth) every day as needed Pain - Moderate. buPROPion (buPROPion 150 mg/12 hours (SR) oral tablet, extended release) 1 tab(s) Oral (given by mouth) 2 times per day. Refills: 3. camphor/menthol/methyl salicylate topical (Salonpas (camphor) topical film) diclofenac topical (Voltaren Gel 1%) docusate (docusate sodium 100 mg oral capsule) 1 cap(s) Oral (given by mouth) 2 times per day as needed if needed for constipation. Refills: 5. ibuprofen (ibuprofen 800 mg oral tablet) 1 tab(s) Oral (given by mouth) every 8 hours. for 30 Days. Refills: 1. losartan (losartan 50 mg oral tablet) take 1 tablet by mouth once daily. Refills: 0. menthol topical (Biofreeze) mirabegron (Myrbetriq 50 mg oral tablet, extended release) 1 tab(s) Oral (given by mouth) every day. pravastatin (pravastatin 40 mg oral tablet) take 1 tablet by mouth at bedtime. Refills: 3. Template Non-Formulary (Golo with meals) 1 tab(s) Oral (given by mouth) 3 times per day. traMADol (traMADol 50 mg oral tablet) 1 tab(s) Oral (given by mouth) every 4 hours. as needed as needed for pain. Refills: 0., OARRS reviewed on 10/03/2022 venlafaxine (venlafaxine 150 mg oral capsule, extended release) 1 cap(s) Oral (given by mouth) 2 times per day. Refills: 3. Medication List: Medications to Continue That Have Not Changed Other Medications acetaminophen (acetaminophen 650 mg oral tablet, extended release) 1 tab(s) Oral (given by mouth) every day as needed Pain - Moderate. buPROPion (buPROPion 150 mg/12 hours (SR) oral tablet, extended release) 1 tab(s) Oral (given by mouth) 2 times per day. Refills: 3. camphor/menthol/methyl salicylate topical (Salonpas (camphor) topical film) diclofenac topical (Voltaren Gel 1%) docusate (docusate sodium 100 mg oral capsule) 1 cap(s) Oral (given by mouth) 2 times per day as needed if needed for constipation. Refills: 5. ibuprofen (ibuprofen 800 mg oral tablet) 1 tab(s) Oral (given by mouth) every 8 hours. for 30 Days. Refills: 1. losartan (losartan 50 mg oral tablet) take 1 tablet by mouth once daily. Refills: 0. menthol topical (Biofreeze) mirabegron (Myrbetriq 50 mg oral tablet, extended release) 1 tab(s) Oral (given by mouth) every day. pravastatin (pravastatin 40 mg oral tablet) take 1 tablet by mouth at bedtime. Refills: 3. Template Non-Formulary (Golo with meals) 1 tab(s) Oral (given by mouth) 3 times per day. traMADol (traMADol 50 mg oral tablet) 1 tab(s) Oral (given by mouth) every 4 hours. as needed as needed for pain. Refills: 0. venlafaxine (venlafaxine 150 mg oral capsule, extended release) 1 cap(s) Oral (given by mouth) 2 times per day. Refills: 3. Medications to Continue That Have Not Changed Other Medications acetaminophen (acetaminophen 650 mg oral tablet, extended release) 1 tab(s) Oral (given by mouth) every day as needed Pain - Moderate. buPROPion (buPROPion 150 mg/12 hours (SR) oral tablet, extended release) 1 tab(s) Oral (given by mouth) 2 times per day. Refills: 3. camphor/menthol/methyl salicylate topical (Salonpas (camphor) topical film) diclofenac topical (Voltaren Gel 1%) docusate (docusate sodium 100 mg oral capsule) 1 cap(s) Oral (given by mouth) 2 times per day as needed if needed for constipation. Refills: 5. ibuprofen (ibuprofen 800 mg oral tablet) 1 tab(s) Oral (given by mouth) every 8 hours. for 30 Days. Refills: 1. losartan (losartan 50 mg oral tablet) take 1 tablet by mouth once daily. Refills: 0. menthol topical (Biofreeze) mirabegron (Myrbetriq 50 mg oral tablet, extended release) 1 tab(s) Oral (given by mouth) every day. pravastatin (pravastatin 40 mg oral tablet) take 1 tablet by mouth at bedtime. Refills: 3. Template Non-Formulary (Golo with meals) 1 tab(s) Oral (given by mouth) 3 times per day. traMADol (traMADol 50 mg oral tablet) 1 tab(s) Oral (given by mouth) every 4 hours. as needed as needed for pain. Refills: 0. venlafaxine (venlafaxine 150 mg oral capsule, extended release) 1 cap(s) Oral (given by mouth) 2 times per day. Refills: 3. Medications to Continue That Have Not Changed Other Medications acetaminophen (acetaminophen 650 mg oral tablet, extended release) 1 tab( (more content not included)... [facility] 12-14-2023 Note [id number] GTIFF [facility] 12-11-2023 Note [facility] SURGERY Clinical Discharge Summary PERSON INFORMATION Name TERE RADER Age 68 Years 1955 Sex FEMALE Language Mauritanian PCP Mark SORIANO, Dale Farias Marital Status Med Service Pain Management Surgery Acct# Arrival 12/11/2023 10:41:55 Visit Reason Left hip osteoarthritis Acuity LOS 003 02:04 Address: [address] [place] [address] Comment: PROVIDER INFORMATION VITALS INFORMATION Vital Sign Triage Latest Temp Oral Temp Temporal Temp Intravascular Temp Axillary Temp Rectal 02 Sat 100 % 97 % Respiratory Rate Peripheral Pulse Rate Apical Heart Rate Blood Pressure / 65 mmHg / 76 mmHg Comment: MEDICAL INFORMATION Allergy Info: No known allergies Prescriptions Given: acetaminophen (acetaminophen 650 mg oral tablet, extended release) 1 tab(s) Oral (given by mouth) every day as needed Pain - Moderate. buPROPion (buPROPion 150 mg/12 hours (SR) oral tablet, extended release) 1 tab(s) Oral (given by mouth) 2 times per day. Refills: 3. docusate (docusate sodium 100 mg oral capsule) 1 cap(s) Oral (given by mouth) 2 times per day as needed if needed for constipation. Refills: 5. ibuprofen (ibuprofen 800 mg oral tablet) 1 tab(s) Oral (given by mouth) every 8 hours. for 30 Days. Refills: 1. losartan (losartan 50 mg oral tablet) take 1 tablet by mouth once daily. Refills: 0. pravastatin (pravastatin 40 mg oral tablet) take 1 tablet by mouth at bedtime. Refills: 3. solifenacin (solifenacin 10 mg oral tablet) 1 tab(s) Oral (given by mouth) every day. Refills: 3. Template Non-Formulary (Golo with meals) 1 tab(s) Oral (given by mouth) 3 times per day. traMADol (traMADol 50 mg oral tablet) 1 tab(s) Oral (given by mouth) every 4 hours. as needed as needed for pain. Refills: 0., OARRS reviewed on 10/03/2022 venlafaxine (venlafaxine 150 mg oral capsule, extended release) 1 cap(s) Oral (given by mouth) 2 times per day. Refills: 3. Medication List: Medications to Continue That Have Not Changed Other Medications acetaminophen (acetaminophen 650 mg oral tablet, extended release) 1 tab(s) Oral (given by mouth) every day as needed Pain - Moderate. buPROPion (buPROPion 150 mg/12 hours (SR) oral tablet, extended release) 1 tab(s) Oral (given by mouth) 2 times per day. Refills: 3. docusate (docusate sodium 100 mg oral capsule) 1 cap(s) Oral (given by mouth) 2 times per day as needed if needed for constipation. Refills: 5. ibuprofen (ibuprofen 800 mg oral tablet) 1 tab(s) Oral (given by mouth) every 8 hours. for 30 Days. Refills: 1. losartan (losartan 50 mg oral tablet) take 1 tablet by mouth once daily. Refills: 0. pravastatin (pravastatin 40 mg oral tablet) take 1 tablet by mouth at bedtime. Refills: 3. solifenacin (solifenacin 10 mg oral tablet) 1 tab(s) Oral (given by mouth) every day. Refills: 3. Template Non-Formulary (Golo with meals) 1 tab(s) Oral (given by mouth) 3 times per day. traMADol (traMADol 50 mg oral tablet) 1 tab(s) Oral (given by mouth) every 4 hours. as needed as needed for pain. Refills: 0. venlafaxine (venlafaxine 150 mg oral capsule, extended release) 1 cap(s) Oral (given by mouth) 2 times per day. Refills: 3. Medications to Continue That Have Not Changed Other Medications acetaminophen (acetaminophen 650 mg oral tablet, extended release) 1 tab(s) Oral (given by mouth) every day as needed Pain - Moderate. buPROPion (buPROPion 150 mg/12 hours (SR) oral tablet, extended release) 1 tab(s) Oral (given by mouth) 2 times per day. Refills: 3. docusate (docusate sodium 100 mg oral capsule) 1 cap(s) Oral (given by mouth) 2 times per day as needed if needed for constipation. Refills: 5. ibuprofen (ibuprofen 800 mg oral tablet) 1 tab(s) Oral (given by mouth) every 8 hours. for 30 Days. Refills: 1. losartan (losartan 50 mg oral tablet) take 1 tablet by mouth once daily. Refills: 0. pravastatin (pravastatin 40 mg oral tablet) take 1 tablet by mouth at bedtime. Refills: 3. solifenacin (solifenacin 10 mg oral tablet) 1 tab(s) Oral (given by mouth) every day. Refills: 3. Template Non-Formulary (Golo with meals) 1 tab(s) Oral (given by mouth) 3 times per day. traMADol (traMADol 50 mg oral tablet) 1 tab(s) Oral (given by mouth) every 4 hours. as needed as needed for pain. Refills: 0. venlafaxine (venlafaxine 150 mg oral capsule, extended release) 1 cap(s) Oral (given by mouth) 2 times per day. Refills: 3. Medications to Continue That Have Not Changed Other Medications acetaminophen (acetaminophen 650 mg oral tablet, extended release) 1 tab(s) Oral (given by mouth) every day as needed Pain - Moderate. buPROPion (buPROPion 150 mg/12 hours (SR) oral tablet, extended release) 1 tab(s) Oral (given by mouth) 2 times per day. Refills: 3. docusate (docusate sodium 100 mg oral capsule) 1 cap(s) Oral (given by mouth) 2 times per day as needed if needed for constipation. Refills: 5. ibuprofen (ibuprofen 800 mg oral tablet) 1 tab(s (more content not included)... [facility] 12-10-2023 Note [id number] TGTIFF The history of present illness has been reviewed. There are no changes document. [Electronically Signed on: 12/11/2023 11:12 EDT] BEN ZEE MD [Verified on: 12/11/2023 11:12 EDT] BEN ZEE MD [Transcribed on: 12/10/2023 13:53 EDT] [facility] 08-24-2023 Note [id number] TIFF [facility] 08-17-2023 Note [facility] SURGERY Clinical Discharge Summary PERSON INFORMATION Name TERE RADER Age 68 Years 1955 Sex FEMALE Language Mauritanian PCP Mark SORIANO, Dale Farias Marital Status Med Service Pain Management Surgery MRN Acct# Arrival Visit Reason SACROILIITIS Acuity LOS 000 03:27 Address: [address] [place], [place] [id number] Comment: PROVIDER INFORMATION VITALS INFORMATION Vital Sign Triage Latest Temp Oral Temp Temporal Temp Intravascular Temp Axillary Temp Rectal 02 Sat Respiratory Rate Peripheral Pulse Rate Apical Heart Rate Blood Pressure / / Comment: MEDICAL INFORMATION Allergy Info: No known allergies Prescriptions Given: acetaminophen (acetaminophen 650 mg oral tablet, extended release) 1 tab(s) Oral (given by mouth) every day as needed Pain - Moderate. buPROPion (buPROPion 150 mg/12 hours (SR) oral tablet, extended release) 1 tab(s) Oral (given by mouth) 2 times a day (scheduled). Refills: 3. docusate (docusate sodium 100 mg oral capsule) 1 cap(s) Oral (given by mouth) 2 times a day (scheduled) as needed if needed for constipation. Refills: 5. ibuprofen (ibuprofen 800 mg oral tablet) 1 tab(s) Oral (given by mouth) Every 8 hours (scheduled) for 30 Days. Refills: 1. losartan (losartan 50 mg oral tablet) take 1 tablet by mouth once daily. Refills: 0. Misc Prescription (GOLO) take one tab before each meal. oxybutynin (oxybutynin 5 mg oral tablet) 1 tab(s) Oral (given by mouth) once a day (at bedtime). Refills: 9. pravastatin (pravastatin 40 mg oral tablet) take 1 tablet by mouth at bedtime. Refills: 3. solifenacin (solifenacin 10 mg oral tablet) 1 tab(s) Oral (given by mouth) every day. Refills: 3. traMADol (traMADol 50 mg oral tablet) 1 tab(s) Oral (given by mouth) every 4 hours (scheduled) as needed as needed for pain. Refills: 0., OARRS reviewed on 10/03/2022 venlafaxine (venlafaxine 150 mg oral capsule, extended release) TAKE ONE CAPSULE BY MOUTH TWICE A DAY. Refills: 0. venlafaxine (venlafaxine 150 mg oral capsule, extended release) 1 cap(s) Oral (given by mouth) 2 times a day (scheduled). Refills: 3. Medication List: Medications to Continue That Have Not Changed Other Medications acetaminophen (acetaminophen 650 mg oral tablet, extended release) 1 tab(s) Oral (given by mouth) every day as needed Pain - Moderate. buPROPion (buPROPion 150 mg/12 hours (SR) oral tablet, extended release) 1 tab(s) Oral (given by mouth) 2 times a day (scheduled). Refills: 3. docusate (docusate sodium 100 mg oral capsule) 1 cap(s) Oral (given by mouth) 2 times a day (scheduled) as needed if needed for constipation. Refills: 5. ibuprofen (ibuprofen 800 mg oral tablet) 1 tab(s) Oral (given by mouth) Every 8 hours (scheduled) for 30 Days. Refills: 1. losartan (losartan 50 mg oral tablet) take 1 tablet by mouth once daily. Refills: 0. Misc Prescription (GOLO) take one tab before each meal. oxybutynin (oxybutynin 5 mg oral tablet) 1 tab(s) Oral (given by mouth) once a day (at bedtime). Refills: 9. pravastatin (pravastatin 40 mg oral tablet) take 1 tablet by mouth at bedtime. Refills: 3. solifenacin (solifenacin 10 mg oral tablet) 1 tab(s) Oral (given by mouth) every day. Refills: 3. traMADol (traMADol 50 mg oral tablet) 1 tab(s) Oral (given by mouth) every 4 hours (scheduled) as needed as needed for pain. Refills: 0. venlafaxine (venlafaxine 150 mg oral capsule, extended release) TAKE ONE CAPSULE BY MOUTH TWICE A DAY. Refills: 0. venlafaxine (venlafaxine 150 mg oral capsule, extended release) 1 cap(s) Oral (given by mouth) 2 times a day (scheduled). Refills: 3. Medications to Continue That Have Not Changed Other Medications acetaminophen (acetaminophen 650 mg oral tablet, extended release) 1 tab(s) Oral (given by mouth) every day as needed Pain - Moderate. buPROPion (buPROPion 150 mg/12 hours (SR) oral tablet, extended release) 1 tab(s) Oral (given by mouth) 2 times a day (scheduled). Refills: 3. docusate (docusate sodium 100 mg oral capsule) 1 cap(s) Oral (given by mouth) 2 times a day (scheduled) as needed if needed for constipation. Refills: 5. ibuprofen (ibuprofen 800 mg oral tablet) 1 tab(s) Oral (given by mouth) Every 8 hours (scheduled) for 30 Days. Refills: 1. losartan (losartan 50 mg oral tablet) take 1 tablet by mouth once daily. Refills: 0. Misc Prescription (GOLO) take one tab before each meal. oxybutynin (oxybutynin 5 mg oral tablet) 1 tab(s) Oral (given by mouth) once a day (at bedtime). Refills: 9. pravastatin (pravastatin 40 mg oral tablet) take 1 tablet by mouth at bedtime. Refills: 3. solifenacin (solifenacin 10 mg oral tablet) 1 tab(s) Oral (given by mouth) every day. Refills: 3. traMADol (traMADol 50 mg oral tablet) 1 tab(s) Oral (given by mouth) every 4 hours (scheduled) as needed as needed for pain. Refills: 0. venlafaxine (venlafaxine 150 mg oral capsule, extended release) TAKE ONE CAPSULE BY MOUTH TWICE A DAY. (more content not included)... [facility] 06-01-2023 Note [id number] TGTIFF [facility] 05-29-2023 Note [facility] SURGERY Clinical Discharge Summary PERSON INFORMATION Name TERE RADER Age 67 Years 1955 Sex FEMALE Language Mauritanian PCP Mark SORIANO, Dale Farias Marital Status Med Service Pain Management Surgery Acct# Arrival 05/29/2023 09:33:35 Visit Reason LOW BACK PAIN Acuity LOS 006 20:42 Address: [address] [place] [address] Comment: PROVIDER INFORMATION VITALS INFORMATION Vital Sign Triage Latest Temp Oral Temp Temporal Temp Intravascular Temp Axillary Temp Rectal 02 Sat Respiratory Rate Peripheral Pulse Rate Apical Heart Rate Blood Pressure / / Comment: MEDICAL INFORMATION Allergy Info: No known allergies Prescriptions Given: acetaminophen (acetaminophen 650 mg oral tablet, extended release) 1 tab(s) Oral (given by mouth) every day as needed Pain - Moderate. buPROPion (BuPROPion (Eqv-Wellbutrin SR) 150 mg/12 hours oral tablet, extended release) 1 tab(s) Oral (given by mouth) 2 times a day for 90 Days. Refills: 3. docusate (docusate sodium 100 mg oral capsule) 1 cap(s) Oral (given by mouth) 2 times a day as needed if needed for constipation. Refills: 5. ibuprofen (ibuprofen 800 mg oral tablet) 1 tab(s) Oral (given by mouth) Every 8 hours for 30 Days. Refills: 1. losartan (losartan 50 mg oral tablet) take 1 tablet by mouth once daily. Refills: 0. Misc Prescription (GOLO) take one tab before each meal. oxybutynin (oxybutynin 5 mg oral tablet) 1 tab(s) Oral (given by mouth) once a day (at bedtime). Refills: 9. pravastatin (pravastatin 40 mg oral tablet) take 1 tablet by mouth at bedtime. Refills: 3. solifenacin (solifenacin 10 mg oral tablet) 1 tab(s) Oral (given by mouth) every day. Refills: 3. traMADol (traMADol 50 mg oral tablet) 1 tab(s) Oral (given by mouth) Every 4 hours as needed as needed for pain. Refills: 0., OARRS reviewed on 10/03/2022 venlafaxine (venlafaxine 150 mg oral capsule, extended release) TAKE ONE CAPSULE BY MOUTH TWICE A DAY. Refills: 0. venlafaxine (venlafaxine 150 mg oral capsule, extended release) 1 cap(s) Oral (given by mouth) 2 times a day. Refills: 3. Medication List: Medications to Continue That Have Not Changed Other Medications acetaminophen (acetaminophen 650 mg oral tablet, extended release) 1 tab(s) Oral (given by mouth) every day as needed Pain - Moderate. buPROPion (BuPROPion (Eqv-Wellbutrin SR) 150 mg/12 hours oral tablet, extended release) 1 tab(s) Oral (given by mouth) 2 times a day for 90 Days. Refills: 3. docusate (docusate sodium 100 mg oral capsule) 1 cap(s) Oral (given by mouth) 2 times a day as needed if needed for constipation. Refills: 5. ibuprofen (ibuprofen 800 mg oral tablet) 1 tab(s) Oral (given by mouth) Every 8 hours for 30 Days. Refills: 1. losartan (losartan 50 mg oral tablet) take 1 tablet by mouth once daily. Refills: 0. Misc Prescription (GOLO) take one tab before each meal. oxybutynin (oxybutynin 5 mg oral tablet) 1 tab(s) Oral (given by mouth) once a day (at bedtime). Refills: 9. pravastatin (pravastatin 40 mg oral tablet) take 1 tablet by mouth at bedtime. Refills: 3. solifenacin (solifenacin 10 mg oral tablet) 1 tab(s) Oral (given by mouth) every day. Refills: 3. traMADol (traMADol 50 mg oral tablet) 1 tab(s) Oral (given by mouth) Every 4 hours as needed as needed for pain. Refills: 0. venlafaxine (venlafaxine 150 mg oral capsule, extended release) TAKE ONE CAPSULE BY MOUTH TWICE A DAY. Refills: 0. venlafaxine (venlafaxine 150 mg oral capsule, extended release) 1 cap(s) Oral (given by mouth) 2 times a day. Refills: 3. Medications to Continue That Have Not Changed Other Medications acetaminophen (acetaminophen 650 mg oral tablet, extended release) 1 tab(s) Oral (given by mouth) every day as needed Pain - Moderate. buPROPion (BuPROPion (Eqv-Wellbutrin SR) 150 mg/12 hours oral tablet, extended release) 1 tab(s) Oral (given by mouth) 2 times a day for 90 Days. Refills: 3. docusate (docusate sodium 100 mg oral capsule) 1 cap(s) Oral (given by mouth) 2 times a day as needed if needed for constipation. Refills: 5. ibuprofen (ibuprofen 800 mg oral tablet) 1 tab(s) Oral (given by mouth) Every 8 hours for 30 Days. Refills: 1. losartan (losartan 50 mg oral tablet) take 1 tablet by mouth once daily. Refills: 0. Misc Prescription (GOLO) take one tab before each meal. oxybutynin (oxybutynin 5 mg oral tablet) 1 tab(s) Oral (given by mouth) once a day (at bedtime). Refills: 9. pravastatin (pravastatin 40 mg oral tablet) take 1 tablet by mouth at bedtime. Refills: 3. solifenacin (solifenacin 10 mg oral tablet) 1 tab(s) Oral (given by mouth) every day. Refills: 3. traMADol (traMADol 50 mg oral tablet) 1 tab(s) Oral (given by mouth) Every 4 hours as needed as needed for pain. Refills: 0. venlafaxine (venlafaxine 150 mg oral capsule, extended release) TAKE ONE CAPSULE BY MOUTH TWICE A DAY. Refills: 0. venlafaxine (venlafaxine 150 mg oral capsule, extende (more content not included)... [facility] 05-28-2023 Note [id number] TGTIFF The history of present illness has been reviewed. There are no changes document. [Electronically Signed on: 05/29/2023 07:03 EST] BEN ZEE MD [Verified on: 05/29/2023 07:03 EST] BEN ZEE MD [Transcribed on: 05/28/2023 14:26 EST] [facility] 05-20-2023 Note Called and left pancho ent voicemail notifying that office was calling to schedule procedure. Requested patient give office a call back to schedule. [Electronically Signed on: 05/20/2023 10:49 EST] Beata Montana RN [Verified on: 05/20/2023 10:49 EST] Beata Montana RN [facility] 04-13-2023 Note Entered by Laury Amos on April 13, 2023 14:16:01 EDT From: Laury Amos To: [facility] #[id number] Sent: 04/13/2023 14:16:01 EDT Subject: Medication Management Submitted: Complete:losartan (losartan 50 mg oral tablet) Signed by Laury Amos 04/13/2023 14:16:00 EDT Approved with modifications: losartan (LOSARTAN POTASSIUM 50 MG TAB) take 1 tablet by mouth once daily Qty: 180 tab(s) Days Supply: 90 Refills: 0 Substitutions Allowed Route To Pharmacy - [facility] #[id number] Signed by Laury Amos Patient matched by Laury Amos on 04/13/2023 14:15:44 EDT From: [facility] #[id number] To: Dale Flores MD Sent: April 13, 2023 8:49:17 AM CDT Subject: Medication Management Due: April 14, 2023 12:03:25 AM CDT On Hold Pending Signature Drug: losartan (losartan 50 mg oral tablet), take 1 tablet by mouth once daily Quantity: 180 tab(s) Days Supply: 90 Refills: 0 Substitutions Allowed Notes from Pharmacy: Dispensed Drug: losartan (losartan 50 mg oral tablet), take 1 tablet by mouth once daily Quantity: 180 tab(s) Days Supply: 90 Refills: 0 Substitutions Allowed Notes from Pharmacy: [facility] 03-11-2023 Note Education Materials Cardiovascular Hypertension, Adult Hypertension is another name for high blood pressure. High blood pressure forces your heart to work harder to pump blood. This can cause problems over time. There are two numbers in a blood pressure reading. There is a top number (systolic) over a bottom number (diastolic). It is best to have a blood pressure that is below 120/80. What are the causes? The cause of this condition is not known. Some other conditions can lead to high blood pressure. What increases the risk? Some lifestyle factors can make you more likely to develop high blood pressure: ? Smoking. ? Not getting enough exercise or physical activity. ? Being overweight. ? Having too much fat, sugar, calories, or salt (sodium) in your diet. ? Drinking too much alcohol. Other risk factors include: ? Having any of these conditions: ? Heart disease. ? Diabetes. ? High cholesterol. ? Kidney disease. ? Obstructive sleep apnea. ? Having a family history of high blood pressure and high cholesterol. ? Age. The risk increases with age. ? Stress. What are the signs or symptoms? High blood pressure may not cause symptoms. Very high blood pressure (hypertensive crisis) may cause: ? Headache. ? Fast or uneven heartbeats (palpitations). ? Shortness of breath. ? Nosebleed. ? Vomiting or feeling like you may vomit (nauseous). ? Changes in how you see. ? Very bad chest pain. ? Feeling dizzy. ? Seizures. How is this treated? ? This condition is treated by making healthy lifestyle changes, such as: ? Eating healthy foods. ? Exercising more. ? Drinking less alcohol. ? Your doctor may prescribe medicine if lifestyle changes do not help enough and if: ? Your top number is above 130. ? Your bottom number is above 80. ? Your personal target blood pressure may vary. Follow these instructions at home: Eating and drinking ? If told, follow the DASH eating plan. To follow this plan: ? Fill one half of your plate at each meal with fruits and vegetables. ? Fill one fourth of your plate at each meal with whole grains. Whole grains include whole-wheat pasta, brown rice, and whole-grain bread. ? Eat or drink low-fat dairy products, such as skim milk or low-fat yogurt. ? Fill one fourth of your plate at each meal with low-fat (lean) proteins. Low-fat proteins include fish, chicken without skin, eggs, beans, and tofu. ? Avoid fatty meat, cured and processed meat, or chicken with skin. ? Avoid pre-made or processed food. ? Limit the amount of salt in your diet to less than 1,500 mg each day. ? Do not drink alcohol if: ? Your doctor tells you not to drink. ? You are , may be , or are planning to become . ? If you drink alcohol: ? Limit how much you have to: ? 0?1 drink a day for women. ? 0?2 drinks a day for men. ? Know how much alcohol is in your drink. In the [place] one drink equals one 12 oz bottle of beer (355 mL), one 5 oz glass of wine (148 mL), or one 1? oz glass of hard liquor (44 mL). Lifestyle ? Work with your doctor to stay at a healthy weight or to lose weight. Ask your doctor what the best weight is for you. ? Get at least 30 minutes of exercise that causes your heart to beat faster (aerobic exercise) most days of the week. This may include walking, swimming, or biking. ? Get at least 30 minutes of exercise that strengthens your muscles (resistance exercise) at least 3 days a week. This may include lifting weights or doing Pilates. ? Do not smoke or use any products that contain nicotine or tobacco. If you need help quitting, ask your doctor. ? Check your blood pressure at home as told by your doctor. ? Keep all follow-up visits. Medicines ? Take [id number] and prescription medicines only as told by your doctor. Follow directions carefully. ? Do not skip doses of blood pressure medicine. The medicine does not work as well if you skip doses. Skipping doses also puts you at risk for problems. ? Ask your doctor about side effects or reactions to medicines that you should watch for. Contact a doctor if: ? You think you are having a reaction to the medicine you are taking. ? You have headaches that keep coming back. ? You feel dizzy. ? You have swelling in your ankles. ? You have trouble with your vision. Get help right away if: ? You get a very bad headache. ? You start to feel mixed up (confused). ? You feel weak or numb. ? You feel faint. ? You have very bad pain in your: ? Chest. ? Belly (abdomen). ? You vomit more than once. ? You have trouble breathing. These symptoms may be an emergency. Get help right away. Call 911. ? Do not wait to see if the symptoms will go away. ? Do not drive yourself to the hospital. Summary ? Hypertension is another name for high blood pressure. ? High blood pressure forces your heart to work harder to (more content not included)... [facility] 03-09-2023 Note Entered by Laury Amos on March 09, 2023 10:55:08 EDT From: Laury Amos [facility]: [id number] Sent: 03/09/2023 10:55:08 EDT Subject: Medication Management Approved with modifications: pravastatin (PRAVASTATIN SODIUM 40 MG TAB) take 1 tablet by mouth at bedtime Qty: 90 tab(s) Days Supply: 90 Refills: 3 Substitutions Allowed Route To Pharmacy - [facility] #[id number] Signed by Laury Amos Patient matched by Laury Amos on 03/09/2023 10:54:42 EDT From: [id number] To: Dale Flores MD Sent: March 09, 2023 8:51:34 AM CDT Subject: Medication Management Due: March 10, 2023 12:06:38 AM CDT On Hold Pending Signature Drug: pravastatin (pravastatin 40 mg oral tablet), take 1 tablet by mouth at bedtime Quantity: 90 tab(s) Days Supply: 90 Refills: 0 Substitutions Allowed Notes from Pharmacy: Dispensed Drug: pravastatin (pravastatin 40 mg oral tablet), take 1 tablet by mouth at bedtime Quantity: 90 tab(s) Days Supply: 90 Refills: 0 Substitutions Allowed Notes from Pharmacy: [facility] 02-06-2023 Note Entered by Laury Amos on February 06, 2023 14:46:54 EDT From: Laury Amos To: [facility] #[id number] Sent: 02/06/2023 14:46:54 EDT Subject: Medication Management Not Approved: sent to pharmacy by Dr. Flores traMADol (TRAMADOL HCL 50 MG TABLET) take 1 tablet by mouth every 4 hours if needed for pain Qty: 60 tab(s) Days Supply: 3 Refills: 0 Substitutions Allowed Route To Pharmacy - [facility] #[id number] Signed by Laury Amos From: [facility] #[id number] To: Dale Flores MD Sent: February 05, 2023 5:55:05 PM CDT Subject: Medication Management Due: February 06, 2023 12:01:49 AM CDT On Hold Pending Signature Drug: traMADol (traMADol 50 mg oral tablet), 1 tab(s) PO q4hr,PRN:as needed for pain Quantity: 60 tab(s) Days Supply: 3 Refills: 0 Substitutions Allowed Notes from Pharmacy: Dispensed Drug: traMADol (traMADol 50 mg oral tablet), take 1 tablet by mouth every 4 hours if needed for pain Quantity: 60 tab(s) Days Supply: 3 Refills: 0 Substitutions Allowed Notes from Pharmacy: [facility] 10-29-2022 Note PROCEDURE: XR ANKLE LT MIN 3 V DATE: 10/29/2022 10:51 AM CDT COMPARISONS: 09/05/2021 CLINICAL INDICATION: Pain of left ankle joint FINDINGS: There is again fusion of the hindfoot by an intramedullary mason of the tibia that extends through the hindfoot. Locking screws are in place, stable. There is evidence of resection of the distal fibula as before. There is bone demineralization as before. There is no evidence of acute osseous abnormality. Some lucency persists at the tibiotalar joint space suggesting this is not completely osseously fused. This is a stable finding. The hardware appears intact and stable.. Soft tissue swelling is noted about the ankle. IMPRESSION: Stable postoperative changes. Left ankle radiographs are stable from previous exam of 09/05/2021.. Electronically authenticated by: NOHEMY MIXON Date: 2022-10-29 15:35 [facility] Summary Purpose Family History No Family History Records FoundNo Family History Records FoundNo Family History Records Found Advance Directives No Advanced Directives Records FoundNo Advanced Directives Records FoundNo Advanced Directives Records Found Additional Source Comments INFORMATION SOURCE (unrecogn ized section and content) DATE CREATED AUTHOR 11/05/2022 [facility] DATE CREATED AUTHOR AUTHOR'S ORGANMARTINEZ ATION 01/21/2024 [facility] DATE CREATED AUTHOR AUTHOR'S ORGANIZ ATION 02/05/2024 [facility] FOR RECORDS PERTAINING TO PATIENTS WHO ARE OR HAVE BEEN ENROLLED IN A CHEMICAL DEPENDENCY/SUBSTANCEABUSE PROGRAM, SOME INFORMATION MAY BE OMITTED. This clinical summary was aggregated from multiple sources. Caution should be exercised in using it in the provision of clinical care. This summary normalizes information from multiple sources, and as a consequence, information in this document may materially change the coding, format and clinical context of patient data. In addition, data may be omitted in some cases. CLINICAL DECISIONS SHOULD BE BASED ON THE PRIMARY CLINICAL RECORDS. [facility]. provides no warranty or guarantee of the accuracy or completeness of information in this document.
== END 2024-02-09 08:41 | disposition home or self-care (01) ==
LOC: EC 02-10 09:47
PROVIDERS: Visit Provider Podiatrist Foot & Ankle Surgery
DX: M25.572 Pain in left ankle and joints of left foot (principal); M24.672 Ankylosis, left ankle
CPT/HCPCS: 73610